=== PATIENT | female | born 1990 | race Caucasian/White ===

== ENCOUNTER 2020-04-03 07:40 | Outpatient (CLI) | payer OTHER, SELFPAY ==
[2020-04-03 08:10] LABS: Hemoglobin A1C 5.2 % (<5.7)
[2020-04-03 08:55] LABS: Alanine Aminotransferase 26 U/L (14-59); Alkaline Phosphatase 62 U/L (46-116); Aspartate Amino Transferase 25 U/L (15-37); Bilirubin,Total 0.5 mg/dL (0.00-1.00); Blood Urea Nitrogen 18 mg/dL (7-18); Calcium 9.3 mg/dL (8.5-10.1); Carbon Dioxide 26 mmol/L (21-32); Chloride 104 mmol/L (98-108); Cholesterol 205 mg/dL (0-200); Estimated Glomerular Filt Rate > 60; Glucose 84 mg/dL (70-99); HDL Direct 61 mg/dL (40-60); LDL Cholesterol Calculated 115 mg/dL (<130); Osmolality Calculated 288 mOsm/kg (285-295); Sodium 139 mmol/L (136-145); Total Protein 7.4 g/dL (6.4-8.2); Triglycerides 145 mg/dL (0-150)
[2020-04-03 09:06] LABS: Thyroid Stimulating Hormone Reflex 3.67 u/IU/mL (0.36-3.74)
[2020-04-06 08:41] LABS: Vitamin D 25 Hydroxy 61 ng/mL (30-100)
== END 2020-04-03 07:41 | disposition home or self-care (01) ==
DX: E28.2 Polycystic ovarian syndrome (principal)
CPT/HCPCS: 36415; 80053; 80061; 82306; 83036; 84443

== ENCOUNTER 2020-07-30 09:20 | Emergency (ER) | payer OTHER, SELFPAY ==
[2020-07-30 09:34] VITALS: BP 142/87; PULSE 73; RESP 20; TEMP 36.8; O2SAT 100
--- NOTE | 2020-07-30 09:51 | ED.GENADULT ---
HPI - General Adult General Chief complaint: Dizziness Stated complaint: fatigued and achy Time Seen by Provider: 07/30/20 09:51 Source: patient and RN notes reviewed Mode of arrival: ambulatory Limitations: no limitations History of Present Illness HPI narrative: 29 year old female who presents to [facility] care with complaints of experiencing episode of dizziness with headache, heaviness in arms and legs, fatigue and nausea that started at 9pm last night. Patient states that she felt like she was going to pass out but she didn't. Patient has been dieting and did Pilates at 1730 yesterday before symptoms occurred. Today she is only experiencing heaviness in her arms and legs and states that she just generally doesn't feel well. Patient has history of of PCOS and last menses was June 15 and she states that she has been spotting since the 26 of July. Patient denies any dizziness with position changes today, no headache, gait is steady face is symmetrical, and no nystagmus noted. Patient admits to being under alot of stress in the last few months finishing her Bachelors degree and had increase in dosage of trazodone for sleep at . States history of seasonal allergies. Related Data Home Medications Medication Instructions Recorded Confirmed cholecalciferol (vitamin D3) 125 5,000 unit PO DAILY 11/08/19 07/30/20 mcg (5,000 unit) capsule metformin 1,000 mg tablet 2,000 mg PO .Bedtime tablet 11/08/19 07/30/20 trazodone 50 mg tablet 25 mg PO .Bedtime tablet 11/08/19 07/30/20 PNV cmb#95-ferrous fumarate-FA 1 tablet PO DAILY 07/30/20 07/30/20 [] cetirizine 10 mg PO DAILY 07/30/20 07/30/20 docusate sodium [Stool Softener] 100 mg PO DAILY 07/30/20 07/30/20 valacyclovir 500 mg PO DAILY 07/30/20 07/30/20 Allergies Allergy/AdvReac Type Severity Reaction Status Date / Time morphine Allergy Intermediate Rash Verified 07/30/20 10:12 diclofenac Allergy Unknown Abdominal Verified 07/30/20 10:12 Pain Review of Systems Review of Systems: Narrative: CONSTITUTIONAL: Denies fever, chills, or sweats. EYES: Denies visual changes, redness, or discharge. ENT: some clear rhinorrhea,no congestion, sore throat, or otalgia. CARDIOVASCULAR: Denies chest pain, palpitations, or edema. RESPIRATORY: Denies cough or dyspnea. GASTROINTESTINAL: Denies abdominal pain, nausea, vomiting, or diarrhea. GENITOURINARY: Denies dysuria or hematuria. SKIN: Denies rash or itching. MUSCULOSKELETAL: Denies back pain, joint pain, or myalgia. NEUROLOGIC: Denies headache, numbness, episode of dizziness and weakness PSYCHIATRIC: positive anxiety denies depression. All systems reviewed & are unremarkable except as noted in HPI and below PMFSH Past Medical History Medical History (Updated 07/31/20 @ 15:28 by Shruthi Watson NP) Genital herpes GERD (gastroesophageal reflux disease) Insomnia PCOS (polycystic ovarian syndrome) Seizure, febrile Vitamin D deficiency Family History Family History (Updated 07/31/20 @ 15:30 by Shruthi Watson NP) Other Diabetes mellitus Heart disease Social History Social History (Updated 07/31/20 @ 15:29 by Shruthi Watson NP) Smoking status: Never smoker Substance use: never Living arrangements: with friend(s) Gender identity (if verbalized by the patient): Female Comments At time of signature, agree with nursing past medical, surgical, social and family history. There is no relevant family history pertinent to the presenting complaint Exam Narrative: Exam Narrative: GENERAL: Well-appearing, well-nourished, and in no acute distress. HEAD: Normocephalic, atraumatic. EYES: PERRLA and EOMI.no nystagmus ENT: Nares boggy with clear rhinorrhea no epistaxis. Mucous membranes moist.TM's normal with good light reflex, throat pink with no exudates or any tonsil enlargement NECK: Supple.no lymphadenopathy CHEST: Clear to auscultation. No respiratory distress.SAO2 100% on room air HEART: Regular rate an
[2020-07-30 10:47] VITALS: BP 138/80
== END 2020-07-30 10:47 | disposition home or self-care (01) ==
PROVIDERS: Emergency Provider Registered Nurse
DX: R42 Dizziness and giddiness (principal); K21.9 Gastro-esophageal reflux disease without esophagitis; E28.2 Polycystic ovarian syndrome; E55.9 Vitamin D deficiency, unspecified
CPT/HCPCS: 81003; 81025; 99213; G0463

== ENCOUNTER 2020-07-31 14:44 | Outpatient (CLI) | payer OTHER, SELFPAY ==
[2020-07-31 14:59] LABS: Basophils Absolute Auto 0.02 K/mm3 (0.00-0.10); Basophils Percent Auto 0.3 % (0.0-1.0); Eosinophils Absolute Auto 0.17 K/mm3 (0.02-0.50); Eosinophils Percent Auto 2.2 % (1.0-6.0); Hematocrit 39.9 % (35.0-49.0); Hemoglobin 13.3 g/dL (12.0-15.0); Immature Granulocyte Absolute 0.02 K/mm3 (0.00-0.00); Immature Granulocyte Percent A 0.3 % (0.0-0.0); Lymphocytes Absolute Auto 2.51 K/mm3 (1.10-4.50); Lymphocytes Percent Auto 32.8 % (18.0-42.0); Mean Corpuscular HGB Conc 33.3 g/dL (32.0-36.0); Mean Platelet Volume 8.9 fl (9.2-11.8); Monocytes Percent Auto 6.5 % (2.0-11.0); Neutrophils Absolute Auto 4.4 K/mm3 (1.7-7.2); Neutrophils Percent Auto 57.9 % (50.0-70.0); Platelet Count Result 270 K/mm3 (150-420); Red Blood Count 4.29 M/mm3 (4.20-5.40); Red Cell Distribution Width 12.5 % (11.6-14.4); White Blood Count 7.7 K/mm3 (4.8-10.8)
[2020-07-31 15:41] LABS: Anion Gap 7 mmol/L (8-16); Blood Urea Nitrogen 16 mg/dL (7-18); Calcium 9.6 mg/dL (8.5-10.1); Carbon Dioxide 28 mmol/L (21-32); Chloride 102 mmol/L (98-108); Estimated Glomerular Filt Rate > 60; Glucose 81 mg/dL (70-99); Osmolality Calculated 284 mOsm/kg (285-295); Potassium 4.9 mmol/L (3.5-5.1); Sodium 137 mmol/L (136-145)
== END 2020-07-31 14:45 | disposition home or self-care (01) ==
LOC: CHSLAB 14:49
DX: R42 Dizziness and giddiness (principal)
CPT/HCPCS: 36415; 80048; 85025

== ENCOUNTER 2020-08-07 12:42 | Outpatient (CLI) | payer OTHER, SELFPAY ==
[2020-08-07 13:04] LABS: Appearance Urine Clear (Clear); Bilirubin Urine Negative (Negative); Color Urine Yellow (Yellow); Glucose Urine UA Negative (Negative); Ketones Urine Negative (Negative); Leukocyte Esterase Ur Negative (Negative); Nitrate Urine Negative (Negative); Protein Urine Negative (Negative); Specific Grav Ur <= 1.005 (1.010-1.020); Urobilinogen Urine 0.2 mg/dL (0.2-1.0)
[2020-08-07 13:18] LABS: Add Urine Microscopic? YES; Bacteria Urine None seen /hpf; Blood Urine Trace-Intact (Negative); RBC Urine 0-2 /hpf (0-2); Squamous Epithelial Cell Urine Few /hpf (Few); WBC Urine 0-3 /hpf (0-3)
[2020-08-07 13:31] LABS: Anion Gap 5 mmol/L (8-16); Blood Urea Nitrogen 14 mg/dL (7-18); Calcium 9.2 mg/dL (8.5-10.1); Carbon Dioxide 30 mmol/L (21-32); Chloride 103 mmol/L (98-108); Estimated Glomerular Filt Rate > 60; Glucose 76 mg/dL (70-99); Osmolality Calculated 285 mOsm/kg (285-295); Potassium 4.4 mmol/L (3.5-5.1); Sodium 138 mmol/L (136-145)
== END 2020-08-07 12:43 | disposition home or self-care (01) ==
DX: N28.9 Disorder of kidney and ureter, unspecified (principal)
CPT/HCPCS: 36415; 80048; 81001

== ENCOUNTER 2020-08-19 22:00 | Emergency (ER) | payer OTHER, SELFPAY ==
[2020-08-19 22:46] LABS: Glucose Point of Care 106 (65-105)
--- NOTE | 2020-08-19 22:56 | ECG_ITS ---
Measurements Intervals [place] Rate: 88 P: 26 HI: 159 QRS: 15 QRSD: 114 T: 18 QT: 388 QTc: 470 Interpretive Statements SINUS RHYTHM INCOMPLETE RIGHT BUNDLE BRANCH BLOCK NONSPECIFIC T-WAVE ABNORMALITY- ANT/INF LEADS BORDERLINE ECG Electronically Signed On 08-20-2020 6:45:46 CDT by Bryant Jaimes D.O.
[2020-08-19 23:01] VITALS: BP 148/85; PULSE 93; RESP 20; TEMP 37.1; O2SAT 97
[2020-08-19 23:16] LABS: Hematocrit 37.5 % (35.0-49.0); Hemoglobin 12.6 g/dL (12.0-15.0); Mean Corpuscular HGB Conc 33.6 g/dL (32.0-36.0); Mean Corpuscular Hemoglobin 30.6 pg (27.0-31.0); Mean Platelet Volume 8.8 fl (9.2-11.8); Platelet Count Result 264 K/mm3 (150-420); Red Blood Count 4.12 M/mm3 (4.20-5.40); Red Cell Distribution Width 12.4 % (11.6-14.4); White Blood Count 6.8 K/mm3 (4.8-10.8)
[2020-08-19 23:19] VITALS: BP 131/78; PULSE 92; O2SAT 96
[2020-08-19 23:20] VITALS: BP 137/79; PULSE 99; O2SAT 97
[2020-08-19 23:32] LABS: Appearance Urine Clear (Clear); Bilirubin Urine Negative (Negative); Color Urine Yellow (Yellow); Glucose Urine UA Negative (Negative); Ketones Urine Negative (Negative); Leukocyte Esterase Ur Negative (Negative); Nitrate Urine Negative (Negative); Protein Urine Negative (Negative); Specific Grav Ur <= 1.005 (1.010-1.020); Urobilinogen Urine 0.2 mg/dL (0.2-1.0)
[2020-08-19] MEDS: SODIUM CHLORIDE 0.9% IV 1,000 ML 999 ML IV CONT (23:33)
[2020-08-19 23:34] LABS: Pregnancy On Board Control Positive; Urine Pregnancy Test Negative
[2020-08-19 23:37] LABS: Add Urine Microscopic? YES; Blood Urine Trace-Intact (Negative); RBC Urine 0-2 /hpf (0-2); Squamous Epithelial Cell Urine None seen /hpf (Few); WBC Urine 0-3 /hpf (0-3)
[2020-08-19] MEDS: ONDANSETRON INJ 4 MG/2 ML VIAL IV PUSH (23:37)
[2020-08-19 23:38] LABS: Bacteria Urine None seen /hpf
[2020-08-19 23:41] LABS: Alanine Aminotransferase 26 U/L (14-59); Albumin Level 4.1 g/dL (3.4-5.0); Alkaline Phosphatase 69 U/L (46-116); Anion Gap 8 mmol/L (8-16); Aspartate Amino Transferase 11 U/L (15-37); Bilirubin,Total 0.3 mg/dL (0.00-1.00); Blood Urea Nitrogen 15 mg/dL (7-18); Calcium 9.1 mg/dL (8.5-10.1); Carbon Dioxide 27 mmol/L (21-32); Chloride 105 mmol/L (98-108); Estimated CRCL calculation 96 ml/min; Estimated Glomerular Filt Rate > 60; Glucose 115 mg/dL (70-99); Osmolality Calculated 291 mOsm/kg (285-295); Potassium 4.6 mmol/L (3.5-5.1); Sodium 140 mmol/L (136-145); Thyroid Stimulating Hormone 5.99 uIU/mL (0.36-3.74); Total Protein 7.6 g/dL (6.4-8.2)
--- NOTE | 2020-08-20 00:16 | ED.DIZZY ---
HPI - Dizziness General Chief Complaint: Dizziness Stated Complaint: feels like she might pass out/nausea Source: patient Mode of arrival: ambulatory Limitations: no limitations History of Present Illness HPI Narrative: this is a 29 year female that presents with lightheadedness with nausea and fatigue that has been going on for the last 2 to 3 months with gradual onset of being more fatigued currently feeling lightheaded with some nausea with no vomiting. The patient does not have any chest pain no short this of breath no abdominal pain, there is no dysuria no sinus tenderness or pressure no ear fullness there is no neck pain or stiffness no headaches no blurry vision. MD elicited complaint: lightheadedness Onset (ago): month(s) Timing: gradual onset Severity: similar to previous episodes Related Data Home Medications Medication Instructions Recorded Confirmed cholecalciferol (vitamin D3) 125 5,000 unit PO DAILY 11/08/19 08/19/20 mcg (5,000 unit) capsule metformin 1,000 mg tablet 2,000 mg PO .Bedtime tablet 11/08/19 08/19/20 trazodone 50 mg tablet 25 mg PO .Bedtime tablet 11/08/19 08/19/20 PNV cmb#95-ferrous fumarate-FA 1 tablet PO DAILY 07/30/20 08/19/20 [] cetirizine 10 mg PO DAILY 07/30/20 08/19/20 docusate sodium [Stool Softener] 100 mg PO DAILY 07/30/20 08/19/20 valacyclovir 500 mg PO DAILY 07/30/20 08/19/20 Allergies Allergy/AdvReac Type Severity Reaction Status Date / Time morphine Allergy Intermediate Rash Verified 07/30/20 10:12 diclofenac Allergy Unknown Abdominal Verified 07/30/20 10:12 Pain Review of Systems Review of Systems: All systems reviewed & are unremarkable except as noted in HPI and below PMFSH Past Medical History Medical History Genital herpes GERD (gastroesophageal reflux disease) Insomnia PCOS (polycystic ovarian syndrome) Seizure, febrile Vitamin D deficiency Family History Family History Other Diabetes mellitus Heart disease Social History Social History Smoking status: Never smoker Substance use: never Gender identity (if verbalized by the patient): Female Exam Const: General: no acute distress Course Course Emergency Course: Patient received Zofran and IV fluids lightheadedness and nausea have improved although the patient still feels a little bit fatigued. Vital Signs Vital signs: Vital Signs Temperature 37.1 C 08/19/20 23:01 Pulse Rate 93 08/19/20 23:01 Respiratory Rate 20 08/19/20 23:01 Blood Pressure 148/85 H 08/19/20 23:01 Pulse Oximetry 97 08/19/20 23:01 Temperature 37.1 C 08/19/20 23:01 Pulse Rate 99 08/19/20 23:20 Respiratory Rate 20 08/19/20 23:01 Blood Pressure 137/79 08/19/20 23:20 Pulse Oximetry 97 08/19/20 23:20 MDM - Dizziness Lab Data Result diagrams: 08/19/20 23:12 08/19/20 23:12 Labs: Lab Results 08/19/20 08/19/20 08/19/20 Range/Units 22:44 23:12 23:12 WBC 6.8 (4.8-10.8) K/mm3 RBC 4.12 L (4.20-5.40) M/mm3 Hgb 12.6 (12.0-15.0) g/dL Hct 37.5 (35.0-49.0) % MCV 91.0 (78.0-102.0) fL MCH 30.6 (27.0-31.0) pg MCHC 33.6 (32.0-36.0) g/dL RDW 12.4 (11.6-14.4) % Plt Count 264 (150-420) K/mm3 MPV 8.8 L (9.2-11.8) fl Sodium 140 (136-145) mmol/L Potassium 4.6 (3.5-5.1) mmol/L Chloride 105 (98-108) mmol/L Carbon Dioxide 27 (21-32) mmol/L Anion Gap 8 (8-16) mmol/L BUN 15 (7-18) mg/dL Creatinine 0.94 (0.55-1.02) mg/dL Estim Creat Clear Calc 96 ml/min Estimated GFR > 60 (59 - ) Glucose 115 H (70-99) mg/dL POC Capillary Glucose 106 (65-105) mg/dl Calculated Osmolality 291 (285-295) mOsm/kg Calcium 9.1 (8.5-10.1) mg/dL Total Bilirubin 0.3 (0.00-1.00) mg/dL AST 11 L (15-3
[2020-08-20 00:19] VITALS: BP 132/65; PULSE 75; RESP 20; TEMP 36.6; O2SAT 99
== END 2020-08-20 00:23 | disposition home or self-care (01) ==
PROVIDERS: Emergency Provider Emergency Medicine
DX: R42 Dizziness and giddiness (principal); E03.9 Hypothyroidism, unspecified
CPT/HCPCS: 36415; 80053; 81001; 81025; 84443; 85027; 93005; 96361; 96374; 99281; 99283; 99284; J2405; J7030

== ENCOUNTER 2020-08-22 22:01 | Emergency (ER) | payer OTHER, SELFPAY ==
--- NOTE | ~2020-08-22 | CT_ITS ---
EXAMINATION: CT brain wo con INDICATION: Weakness, headache COMPARISON: None TECHNIQUE: Standard unenhanced head CT. The dose-length product (DLP) was 605.33 mGy-cm. The mA was a djusted according to patient size. Iterative reconstruction technique was employed. FINDINGS: There is no intracranial hemorrhage, acute infarction, or abnormal mass lesion. The ventric les are normal. There is no abnormal mass effect or midline shift. The vincent-white matter differentiat ion is normal. The basal cisterns are patent. The orbits are normal. The paranasal sinuses, mastoids and calvarium are normal. IMPRESSION: 1. No acute intracranial abnormality. Reviewed, dictated and finalized at location A.
--- NOTE | ~2020-08-22 | CT_ITS ---
EXAMINATION: CT cervical spine wo con DATE: 08/22/2020 23:22 INDICATION: Neck pain TECHNIQUE: Computed tomography (CT) of the cervical spine was performed without intravenous contrast. The dose-length product (DLP) was 441.56 mGy-cm. Automated exposure control and iterative reconstruc tion technique were employed. COMPARISON: None FINDINGS: There is no fracture, dislocation, or subluxation. The vertebral body heights and alignment are normal. There is mild loss of intervertebral disc space height in the lower cervical spine. The odontoid is intact. Small degenerative osteophytes project from the anterior endplates of multiple ve rtebral bodies. There is mild facet and uncovertebral joint osteoarthritis. IMPRESSION: 1. Mild cervical spondylosis without acute findings. Reviewed, dictated and finalized at location A.
--- NOTE | ~2020-08-22 | XR_ITS ---
EXAMINATION: XR chest 2V DATE: 08/22/2020 23:26 INDICATION: Weakness TECHNIQUE: PA and lateral views of the chest are obtained. COMPARISON: 11/08/2019 FINDINGS: The lungs are free of acute opacities. There is no pleural effusion or pneumothorax. The ca rdiomediastinal silhouette is normal. There is mild thoracic spondylosis. IMPRESSION: 1. No acute cardiopulmonary abnormality. Reviewed, dictated and finalized at location A.
--- NOTE | 2020-08-22 22:07 | ED.GENADULT ---
HPI - General Adult General Chief complaint: Headache Stated complaint: episodes where I am going to pass out Time Seen by Provider: 08/22/20 22:07 Source: patient and family Mode of arrival: ambulatory Limitations: no limitations History of Present Illness HPI narrative: Patient is a 29-year-old female who presents for evaluation of 3 weeks of nausea, lightheadedness, intermittent dizziness. Patient states that she has been feeling unwell for the past several weeks, has seen a primary care physician and has had 2 previous emergency department visits without a diagnosis for her symptoms. She denies fever, congestion, vision changes, chest pain, shortness of breath, abdominal pain or urinary symptoms. Patient with recent thyroid function studies which initially showed a increased TSH but then normal T3 and T4 thus patient's primary care physician did not start her on any medication. No episodes of syncope. She has had nausea without vomiting. No diarrhea or constipation. No focal weakness or numbness. Patient reports mild, aching neck pain that is worse with movement. Patient states at times she feels tremulous. She denies history of anxiety or depression. Patient states she has had an intentional 50 pound weight loss due to healthy eating and exercise. She denies any dietary deficiencies. Related Data Home Medications Medication Instructions Recorded Confirmed cholecalciferol (vitamin D3) 125 5,000 unit PO DAILY 11/08/19 08/19/20 mcg (5,000 unit) capsule metformin 1,000 mg tablet 2,000 mg PO .Bedtime tablet 11/08/19 08/19/20 trazodone 50 mg tablet 25 mg PO .Bedtime tablet 11/08/19 08/19/20 PNV cmb#95-ferrous fumarate-FA 1 tablet PO DAILY 07/30/20 08/19/20 [] cetirizine 10 mg PO DAILY 07/30/20 08/19/20 docusate sodium [Stool Softener] 100 mg PO DAILY 07/30/20 08/19/20 valacyclovir 500 mg PO DAILY 07/30/20 08/19/20 Allergies Allergy/AdvReac Type Severity Reaction Status Date / Time morphine Allergy Intermediate Rash Verified 07/30/20 10:12 diclofenac Allergy Unknown Abdominal Verified 07/30/20 10:12 Pain Review of Systems Review of Systems: Narrative: CONSTITUTIONAL: Denies fever, chills, or sweats. EYES: Denies visual changes, redness, or discharge. ENT: Denies rhinorrhea, congestion, sore throat, or otalgia. CARDIOVASCULAR: Denies chest pain, palpitations, or edema. RESPIRATORY: Denies cough or dyspnea. GASTROINTESTINAL: Denies abdominal pain, reports nausea without vomiting GENITOURINARY: Denies dysuria or hematuria. SKIN: Denies rash or itching. MUSCULOSKELETAL: Denies back pain, joint pain, reports neck pain NEUROLOGIC: Denies current headache, numbness,reports feeling diffusely weak PSYCHIATRIC: Denies anxiety or depression. [facility] Past Medical History Medical History Genital herpes GERD (gastroesophageal reflux disease) Insomnia PCOS (polycystic ovarian syndrome) Seizure, febrile Vitamin D deficiency Social History Social History Smoking status: Never smoker Substance use: never Gender identity (if verbalized by the patient): Female Exam Narrative: Exam Narrative: GENERAL: Awake, alert, conversant HEAD: Normocephalic, atraumatic. EYES: PERRLA and EOMI. ENT: Nares clear, no rhinorrhea or epistaxis. Mucous membranes moist. NECK: Supple. No rigidity. No midline tenderness. Positive cervical paraspinal tenderness. CHEST: No respiratory distress, breathing even and non labored HEART: Regular rate, sinus rhythm ABDOMEN:Non distended, non tender EXTREMITIES: Normal range of motion. No edema. SKIN: Warm, dry, no rash. NEURO:No focal deficits. Alert and oriented x3. Finger to nose intact bilaterally. EOMs intact without nystagmus. No facial droop/asymmetry noted bilaterally. Grimace intact. Intact sensation in face. Hearing intact bilaterally. Shoulder shrug intact. Strength 5
[2020-08-22 22:15] VITALS: BP 133/84; PULSE 91; RESP 19; TEMP 36.4; O2SAT 100
--- NOTE | 2020-08-22 22:20 | ECG_ITS ---
Measurements Intervals [place] Rate: 84 P: 1 VA: 151 QRS: -18 QRSD: 122 T: 11 QT: 386 QTc: 457 Interpretive Statements SINUS RHYTHM INCOMPLETE RIGHT BUNDLE BRANCH BLOCK VOLTAGE CRITERIA FOR LVH MINIMAL Q WAVES- HIGH LATERAL LEADS BORDERLINE T WAVE ABNORMALITY- ANT/INF LEADS BORDERLINE ECG Electronically Signed On 08-23-2020 6:56:25 CDT by Bryant Jaimes D.O.
[2020-08-22 22:42] LABS: Basophils Percent Auto 0.2 % (0.2-1.2); Eosinophils Absolute Auto 0.1 K/mm3 (0-0.3); Eosinophils Percent Auto 1.3 % (0-4.4); Hematocrit 38.7 % (37.0-47.0); Hemoglobin 13.3 g/dL (12.0-15.0); Immature Granulocyte Absolute 0.03 K/mm3 (0.00-0.031); Immature Granulocyte Percent A 0.3 % (0-0.5); Lymphocytes Absolute Auto 2.41 K/mm3 (0.9-3.2); Lymphocytes Percent Auto 24.6 % (18.3-44.2); Mean Corpuscular HGB Conc 34.4 g/dl (32-36); Mean Corpuscular Hemoglobin 30.9 pg (26-34); Monocytes Absolute Auto 0.7 K/mm3 (0.1-0.6); Monocytes Percent Auto 7.1 % (2.6-8.5); Neutrophils Absolute Auto 6.5 K/mm3 (1.3-6.7); Neutrophils Percent Auto 66.5 % (45.5-73.1); Platelet Count Result 248 k/mm3 (150-375); Red Cell Distribution Width 12.2 % (11.5-14.5); White Blood Count 9.8 K/mm3 (4.5-10.0)
[2020-08-22] MEDS: ONDANSETRON INJ 4 MG/2 ML VIAL IV PUSH (22:47)
[2020-08-22] MEDS: MAGNESIUM SULF 2 GM/WATER 50ML 2 GM/50 ML BAG IVPB (22:47)
[2020-08-22] MEDS: ACETAMINOPHEN 500 MG TABLET 1000 MG PO (22:48)
[2020-08-22] MEDS: SODIUM CHLORIDE 0.9% IV 1,000 ML 999 ML IV CONT (22:48)
[2020-08-22 22:49] LABS: Add Urine Microscopic? NO; Appearance Urine Clear (Clear); Bilirubin Urine Negative (Negative); Blood Urine Negative (Negative); Color Urine Straw (Yellow); Glucose Urine UA Negative (Negative); Ketones Urine Negative (Negative); Leukocyte Esterase Ur Negative LEU/UL (Negative); Nitrate Urine Negative (Negative); Protein Urine Negative (Negative); Specific Grav Ur 1.005 (1.001-1.035); Urobilinogen Urine Negative mg/dL (<2.0)
[2020-08-22 22:53] LABS: Anion Gap 6 mmol/L (8-16); Blood Urea Nitrogen 16 mg/dL (7-17); Calcium 9.7 mg/dL (8.4-10.2); Carbon Dioxide 26 mmol/L (22-30); Chloride 104 mmol/L (98-107); Estimated Glomerular Filt Rate > 60; Glucose 107 mg/dL (65-105); Potassium 4.2 mmol/L (3.4-5.0); Sodium 136 mmol/L (137-145)
[2020-08-22 23:18] VITALS: TEMP 36.4
[2020-08-22 23:30] VITALS: BP 127/67; PULSE 85; RESP 18; O2SAT 97
[2020-08-23 00:31] VITALS: BP 135/63; PULSE 83; RESP 14; TEMP 36.7; O2SAT 99
== END 2020-08-23 00:33 | disposition home or self-care (01) ==
PROVIDERS: Emergency Provider Emergency Medicine
DX: R42 Dizziness and giddiness (principal); M54.2 Cervicalgia; K21.9 Gastro-esophageal reflux disease without esophagitis; E28.2 Polycystic ovarian syndrome; E55.9 Vitamin D deficiency, unspecified; M47.812 Spondylosis without myelopathy or radiculopathy, cervical region; I45.10 Unspecified right bundle-branch block; R94.31 Abnormal electrocardiogram [ECG] [EKG]
CPT/HCPCS: 36415; 70450; 71046; 72125; 80048; 81003; 81025; 85025; 93005; 96365; 96375; 99284; A9270; J2405; J3475; J7030

== ENCOUNTER 2020-09-23 06:56 | Outpatient (CLI) | payer OTHER, SELFPAY ==
--- NOTE | 2020-09-23 | ECHO_ITS ---
Patient Info Name: Arabella Brown Age: 30 years : 1990 Gender: Female Ht: 68 in Wt: 220 lbs BSA: 2.22 m2 HR: 73 bpm BP: 139 / 95 mmHg Technical Quality: Good Exam Date: 09/23/2020 8:47 AM Exam Location: [facility] Patient Status: Outpatient Admit Date: 09/23/2020 Staff Ordering Physician: Steve Hunt MD Flight Service Agent: Bruce Butts, ANUM, RT Attending Provider: Steve Hunt MD Exam Type: CA echo doppler color flow Study Info Indications R00.2 - Palpitations Complete two-dimensional, color flow and Doppler transthoracic echocardiogram is performed. Strain analysis performed. Summary 1. Complete two-dimensional, color flow and Doppler transthoracic echocardiogram is performed. 2. Left ventricular chamber dimension is normal. 3. Left ventricular systolic function is normal, estimated at 60-65%. 4. The left ventricular diastolic function is normal. 5. E/e' 7 is not elevated. 6. Global longitudinal strain is normal at -18.4%. 7. There is trace pulmonic regurgitation. Left Ventricle E/e' 7 is not elevated. Global longitudinal strain is normal at -18.4%. Left ventricular chamber dimension is normal. Left ventricular systolic function is normal, estimated at 60-65%. The left ventricular diastolic function is normal. Right Ventricle Right ventricular chamber dimension is normal. Right ventricular systolic function is normal. Left Atria Left atrial chamber dimension is normal. Right Atria Right atrial chamber dimension is normal. Aortic Valve The aortic valve is trileaflet. There is no aortic valve stenosis. There is no aortic valve regurgitation. Pulmonic Valve There is trace pulmonic regurgitation. Mitral Valve There is no mitral valve stenosis. There is no mitral valve regurgitation. Tricuspid Valve There is no tricuspid valve regurgitation. Pericardium/Pleural There is no pericardial effusion. Inferior Vena Cava Normal inferior vena cava with >50% collapse upon inspiration consistent with normal right atrial pressure, 5 mmHg. Aorta The aortic root size at the sinus of Valsalva is normal. Left Ventricular Outflow Tract Name Value Normal LVOT 2D LVOT Diameter 2.0 cm LVOT Doppler LVOT Peak Gradient 3 mmHg LVOT Mean Gradient 1 mmHg LVOT VTI 17 cm LVOT VTI/AV VTI Ratio 0.5 LVOT Stroke Volume 55 ml LVOT CO 3.8 l/min LVOT CI 1.7 l/min/m2 Mitral Valve Name Value Normal MV Doppler MV Decel Otero 405 cm/s2 MV PHT 62 ms MV Area (PHT) 3.6 cm2 4.0-5.0 MV Diastolic Function ---------
--- NOTE | ~2020-09-23 | US_ITS ---
EXAMINATION: US carotid duplex BI DATE: 09/23/2020 09:47 INDICATION: Peripheral vascular disease. Vertigo. TECHNIQUE: Grayscale, color Doppler, and pulsed Doppler images of the cervical carotid arteries were obtained. The degree of vessel stenosis is placed in one of the following categories: normal, <50%, 5 0-69%, >=70% but less than near-occlusion, near-occlusion, or total occlusion. Note that percent sten osis relative to normal distal artery lumen diameter is indirectly measured from velocity measurement s as described by Raz, et al. Radiology 2003; 229:340-346. COMPARISON: None. FINDINGS: RIGHT: The right common carotid artery (CCA) peak systolic velocity (PSV) is 110 cm/s. The right internal ca rotid artery (ICA) PSV is 67 cm/s. The right ICA end-diastolic velocity (EDV) is 32 cm/s. The right I CA/CCA PSV ratio is 0.6. Grayscale and color Doppler images yield an estimate of <50% diameter reduct ion from negligible plaque in the ICA. The external carotid artery (ECA) PSV is 87 cm/s. There is ant egrade flow in the right vertebral artery. LEFT: The left CCA PSV is 95 cm/s. The left ICA PSV is 84 cm/s. The left ICA EDV is 40 cm/s. The left ICA/C CA PSV ratio is 0.9. Grayscale and color Doppler images yield an estimate of <50% diameter reduction from negligible plaque in the ICA. The ECA PSV is 74 cm/s. There is antegrade flow in the left verteb ral artery. IMPRESSION: 1. <50% stenosis from negligible plaque in the right internal carotid artery. 2. <50% stenosis from negligible plaque in the left internal carotid artery. Reviewed, dictated and finalized at location B.
--- NOTE | 2020-09-23 09:44 | WPDNEUROLOGY ---
Neurology EEG Report TEST EEG DIAGNOSIS seizures CONDITION OF RECORDING awake and drowsy EEG NUMBER [id number] CLINICAL HISTORY patient reported that for the last 2 months she is having episodes of feeling weird and then he starts shaking. She denies any loss of consciousness. Episodes can last [id number] up to an hour. EEG DESCRIPTION Basic resting occipital frequency consists of large amount of well-organized low to medium voltage 8 to 10 hertz per 2nd alpha admixed with minimal amount of low-voltage 15 to 18 hertz per 2nd beta. During drowsiness low-voltage beta activity seen diffusely admixed with waxing and waning posterior alpha rhythm. Intermittent EKG artifact is seen throughout the tracing. Non paroxysmal. Nonfocal. Nonlateralizing. IMPRESSION Normal EEG
== END 2020-09-23 06:57 | disposition home or self-care (01) ==
PROVIDERS: Visit Provider Psychiatry & Neurology Neurology
DX: R56.9 Unspecified convulsions (principal); R00.2 Palpitations; I73.9 Peripheral vascular disease, unspecified; I65.23 Occlusion and stenosis of bilateral carotid arteries
CPT/HCPCS: 93306; 93880; 95816

== ENCOUNTER 2021-01-20 08:10 | Outpatient (CLI) | payer OTHER, SELFPAY ==
[2021-01-20 08:49] LABS: Beta HCG Quantitative < 1.00 mIU/mL (0-6)
== END 2021-01-20 08:11 | disposition home or self-care (01) ==
LOC: CHSLAB 08:14
PROVIDERS: PCP Obstetrics & Gynecology; Visit Provider Obstetrics & Gynecology
DX: Z31.83 Encounter for assisted reproductive fertility procedure cycle (principal)
CPT/HCPCS: 36415; 84702

== ENCOUNTER 2021-03-19 07:49 | Outpatient (CLI) | payer OTHER, SELFPAY ==
[2021-03-22 08:02] LABS: Progesterone 8.1 ng/mL (***)
== END 2021-03-19 07:50 | disposition home or self-care (01) ==
PROVIDERS: Visit Provider Obstetrics & Gynecology
DX: Z31.41 Encounter for fertility testing (principal)
CPT/HCPCS: 36415; 84144

== ENCOUNTER 2021-04-21 16:28 | Outpatient (CLI) | payer OTHER, SELFPAY | END 2021-04-21 16:29 | disposition home or self-care (01) | PROVIDERS: Visit Provider Obstetrics & Gynecology | DX: N97.9 Female infertility, unspecified (principal) | CPT/HCPCS: 36415; 84144 ==

== ENCOUNTER 2021-04-30 11:47 | Outpatient (CLI) | payer OTHER, SELFPAY ==
[2021-04-30 13:07] LABS: Beta HCG Quantitative < 1.00 mIU/mL (0-6)
== END 2021-04-30 11:48 | disposition home or self-care (01) ==
LOC: CHSLAB 11:50
PROVIDERS: PCP Obstetrics & Gynecology; Visit Provider Obstetrics & Gynecology
DX: Z31.41 Encounter for fertility testing (principal)
CPT/HCPCS: 36415; 84702

== ENCOUNTER 2021-05-02 11:57 | Outpatient (CLI) | payer OTHER, SELFPAY ==
--- NOTE | ~2021-05-02 | XR_ITS ---
EXAMINATION: XR hysterosalpingogram DATE: 05/02/2021 12:27 INDICATION: Fertility testing TECHNIQUE: Multiple fluoroscopic images were obtained during contrast infusion into the endometrial c anal of the uterus by the primary physician. Fluoroscopy exposure time was 0.8 minutes. A total of 4 images were recorded. FINDINGS: The left fallopian tube is normal in caliber and patent with free intraperitoneal spillage. There are filling defects at the right cornua, a portion of which demonstrates a concave margin which would ar kyleigh against a bubble. The right fallopian tube is occluded with only minimal opacification of the pro ximal most right fallopian tube. The remainder of the right fallopian tube remains unopacified with n o free intraperitoneal spillage on the right. IMPRESSION: 1. Patent left fallopian tube. 2. Occluded right fallopian tube with nonspecific irregular filling defect at the right cornua. Reviewed, dictated and finalized at location A. IMPRESSION: 1. Patent left fallopian tube. 2. Occluded right fallopian tube with nonspecific irregular filling defect at t he right cornua.
== END 2021-05-02 11:58 | disposition home or self-care (01) ==
LOC: ANHIMG 11:59
PROVIDERS: Visit Provider Obstetrics & Gynecology
DX: N97.1 Female infertility of tubal origin (principal)
CPT/HCPCS: 58340; 74740; Q9966

== ENCOUNTER 2021-05-20 16:25 | Outpatient (CLI) | payer OTHER, SELFPAY ==
[2021-05-24 08:07] LABS: Progesterone 15.3 ng/mL (***)
== END 2021-05-20 16:26 | disposition home or self-care (01) ==
PROVIDERS: PCP Obstetrics & Gynecology; Visit Provider Obstetrics & Gynecology
DX: Z31.41 Encounter for fertility testing (principal)
CPT/HCPCS: 36415; 84144

== ENCOUNTER 2021-06-20 16:27 | Outpatient (CLI) | payer OTHER, SELFPAY ==
[2021-06-25 05:56] LABS: Progesterone 20.8 ng/mL (***)
== END 2021-06-20 16:28 | disposition home or self-care (01) ==
LOC: CHSIMG 16:29
PROVIDERS: PCP Obstetrics & Gynecology; Visit Provider Obstetrics & Gynecology
DX: N97.9 Female infertility, unspecified (principal)
CPT/HCPCS: 36415; 84144

== ENCOUNTER 2021-07-21 12:02 | Outpatient (CLI) | payer OTHER, SELFPAY ==
[2021-07-24 07:18] LABS: Progesterone 20.7 ng/mL (***)
== END 2021-07-21 12:03 | disposition home or self-care (01) ==
LOC: CHSLAB 12:04
PROVIDERS: PCP Obstetrics & Gynecology; Visit Provider Obstetrics & Gynecology
DX: Z31.41 Encounter for fertility testing (principal)
CPT/HCPCS: 36415; 84144

== ENCOUNTER 2021-09-03 08:00 | Outpatient (CLI) | payer OTHER, SELFPAY ==
[2021-09-03 08:32] LABS: Basophils Absolute Auto 0.03 K/mm3 (0.00-0.10); Basophils Percent Auto 0.5 % (0.0-1.0); Eosinophils Percent Auto 1.8 % (1.0-6.0); Hematocrit 37.7 % (35.0-49.0); Hemoglobin 12.6 g/dL (12.0-15.0); Immature Granulocyte Absolute 0.02 K/mm3 (0.00-0.00); Immature Granulocyte Percent A 0.4 % (0.0-0.0); Lymphocytes Percent Auto 30.7 % (18.0-42.0); Mean Corpuscular HGB Conc 33.4 g/dL (32.0-36.0); Mean Corpuscular Hemoglobin 29.6 pg (27.0-31.0); Mean Corpuscular Volume 88.7 fL (78.0-102.0); Mean Platelet Volume 8.8 fl (9.2-11.8); Monocytes Absolute Auto 0.43 K/mm3 (0.10-0.90); Monocytes Percent Auto 7.8 % (2.0-11.0); Neutrophils Absolute Auto 3.3 K/mm3 (1.7-7.2); Neutrophils Percent Auto 58.8 % (50.0-70.0); Platelet Count Result 264 K/mm3 (150-420); Red Blood Count 4.25 M/mm3 (4.20-5.40); Red Cell Distribution Width 13.1 % (11.6-14.4); White Blood Count 5.5 K/mm3 (4.8-10.8)
[2021-09-03 09:48] LABS: Alanine Aminotransferase 42 U/L (14-59); Albumin Level 3.9 g/dL (3.4-5.0); Alkaline Phosphatase 62 U/L (46-116); Anion Gap 9 mmol/L (8-16); Aspartate Amino Transferase 15 U/L (15-37); Bilirubin,Total 0.4 mg/dL (0.00-1.00); Blood Urea Nitrogen 15 mg/dL (7-18); Carbon Dioxide 27 mmol/L (21-32); Chloride 103 mmol/L (98-108); Estimated Glomerular Filt Rate > 60; Free T4 Free Thyroxine 0.94 ng/dL (0.76-1.46); Glucose 95 mg/dL (70-99); Osmolality Calculated 288 mOsm/kg (285-295); Potassium 4.7 mmol/L (3.5-5.1); Sodium 139 mmol/L (136-145); Thyroid Stimulating Hormone 2.22 uIU/mL (0.36-3.74); Total Protein 7.2 g/dL (6.4-8.2)
[2021-09-03 09:51] LABS: HIV 1 P24 AG Negative (Negative); HIV 1/2 AB Negative (Negative)
[2021-09-03 10:10] LABS: Free T3 2.52 pg/mL (2.18-3.98)
[2021-09-05 21:55] LABS: Hepatitis B Surface Antigen Nonreactive (Nonreactive); Hepatitis C Signal to Cutoff 0.01 ratio (<1.00); Hepatitis C Virus Antibody Nonreactive (Nonreactive)
[2021-09-06 06:06] LABS: DHEA-Sulfate 398 mcg/dL (18-391); Thyroglobulin 3.9 ng/mL (2.8-40.9); Thyroglobulin Antibodies 570 IU/mL (<=1); Thyroid Peroxidase Antibodies 9 IU/mL (<9)
[2021-09-06 06:29] LABS: LH 2.3 mIU/mL (***); Progesterone 0.7 ng/mL (***); Prolactin 8.7 ng/mL (***)
[2021-09-06 11:21] LABS: Testosterone Total 25 ng/dL (2-45)
[2021-09-06 11:44] LABS: Vitamin D 25 Hydroxy 55 ng/mL (30-100)
[2021-09-06 15:51] LABS: Rubeola Measles IgG >300.00 AU/mL
[2021-09-06 19:07] LABS: Rubella IgG Antibody 1.38 Index
[2021-09-08 00:12] LABS: Vitamin D 1,25 (OH)2 Total 63 pg/mL (18-72); Vitamin D2 1,25 (OH)2 <8 pg/mL; Vitamin D3 1,25 (OH)2 63 pg/mL
[2021-09-10 09:57] LABS: Reference Lab Test Name SYPHILIS AB CASCADE
[2021-09-10 21:36] LABS: Estradiol, Ultrasensitive 71 pg/mL
== END 2021-09-03 08:01 | disposition home or self-care (01) ==
LOC: CHSLAB 08:05
PROVIDERS: PCP Obstetrics & Gynecology
DX: E28.8 Other ovarian dysfunction (principal); E28.2 Polycystic ovarian syndrome; Z11.3 Encounter for screening for infections with a predominantly sexual mode of transmission; Z11.4 Encounter for screening for human immunodeficiency virus [HIV]; Z13.228 Encounter for screening for other metabolic disorders; Z13.0 Encounter for screening for diseases of the blood and blood-forming organs and certain disorders involving the immune mechanism; Z13.1 Encounter for screening for diabetes mellitus; Z01.83 Encounter for blood typing; Z01.84 Encounter for antibody response examination; Z11.59 Encounter for screening for other viral diseases; Z13.29 Encounter for screening for other suspected endocrine disorder; Z13.21 Encounter for screening for nutritional disorder
CPT/HCPCS: 36415; 80053; 82306; 82627; 82652; 82670; 83001; 83002; 83036; 83498; 83520; 84144; 84146; 84403; 84432; 84439; 84443; 84481; 85025; 86146; 86376; 86703; 86762; 86765; 86780; 86787; 86800; 86850; 86900; 86901; 87491; 87591

== ENCOUNTER 2021-09-08 08:39 | Outpatient (CLI) | payer OTHER, SELFPAY ==
[2021-09-08 09:37] LABS: SARS-CoV-2 RNA PCR Negative (Negative)
== END 2021-09-08 08:40 | disposition home or self-care (01) ==
LOC: CHSLAB 08:41
PROVIDERS: PCP Obstetrics & Gynecology; Visit Provider Nurse Practitioner Family
DX: Z20.822 Contact with and (suspected) exposure to COVID-19 (principal); Z01.818 Encounter for other preprocedural examination
CPT/HCPCS: C9803; U0003; U0005

== ENCOUNTER 2021-12-31 12:08 | Outpatient (CLI) | payer OTHER, SELFPAY ==
[2022-01-04 10:22] LABS: Progesterone 0.7 ng/mL (***)
[2022-01-04 20:18] LABS: Estradiol, Ultrasensitive 499 pg/mL
== END 2021-12-31 12:09 | disposition home or self-care (01) ==
LOC: CHSLAB 12:14
PROVIDERS: PCP Registered Nurse
DX: Z31.83 Encounter for assisted reproductive fertility procedure cycle (principal)
CPT/HCPCS: 36415; 82670; 84144

== ENCOUNTER 2022-01-22 09:33 | Outpatient (CLI) | payer OTHER, SELFPAY ==
[2022-01-28 05:35] LABS: Progesterone 39.3 ng/mL (***)
== END 2022-01-22 09:34 | disposition home or self-care (01) ==
PROVIDERS: PCP Registered Nurse
DX: Z32.01 Encounter for pregnancy test, result positive (principal)
CPT/HCPCS: 36415; 84144; 84702

== ENCOUNTER 2022-03-02 11:57 | Outpatient (CLI) | payer OTHER, SELFPAY ==
--- NOTE | ~2022-03-02 | US_ITS ---
EXAMINATION: US OB <= 14 weeks fetus DATE: 03/02/2022 12:17 INDICATION: Hemorrhage in early , unspecified. TECHNIQUE: Real-time transabdominal pelvic ultrasound was performed. COMPARISON: None. FINDINGS: The uterus measures 11.1 x 7.0 x 6.6 cm. There is an intrauterine gestational sac. The crown r ump length measures 3.1 cm, which correlates with an estimated gestational age of 10 weeks and 0 day( s) (+/-) 6 day(s). heart motion is identified measuring 171 beats per minute (bpm) by M-mode Do ppler. The right ovary measures 3.2 x 1.7 x 1.8 cm. The left ovary is not visualized. There is no fred e fluid in the pelvis. IMPRESSION: 1. Single living intrauterine gestation with estimated date of delivery of 09/28/2022. Reviewed, dictated and finalized at location A. IMPRESSION: 1. Single living intrauterine gestation with estimated date of delivery of .
== END 2022-03-02 11:58 | disposition home or self-care (01) ==
LOC: CHSIMG 11:58
PROVIDERS: PCP Registered Nurse; Visit Provider Obstetrics & Gynecology
DX: O20.9 Hemorrhage in early pregnancy, unspecified (principal)
CPT/HCPCS: 76801

== ENCOUNTER 2022-03-27 11:49 | Outpatient (CLI) | payer OTHER, SELFPAY ==
[2022-03-27 12:04] LABS: Basophils Absolute Auto 0.02 K/mm3 (0.00-0.10); Basophils Percent Auto 0.2 % (0.0-1.0); Eosinophils Percent Auto 1.2 % (1.0-6.0); Hematocrit 34.3 % (35.0-49.0); Hemoglobin 11.6 g/dL (12.0-15.0); Immature Granulocyte Absolute 0.03 K/mm3 (0.00-0.00); Immature Granulocyte Percent A 0.4 % (0.0-0.0); Lymphocytes Absolute Auto 1.67 K/mm3 (1.10-4.50); Lymphocytes Percent Auto 20.3 % (18.0-42.0); Mean Corpuscular HGB Conc 33.8 g/dL (32.0-36.0); Mean Corpuscular Hemoglobin 30.5 pg (27.0-31.0); Mean Corpuscular Volume 90.3 fL (78.0-102.0); Mean Platelet Volume 8.9 fl (9.2-11.8); Monocytes Absolute Auto 0.44 K/mm3 (0.10-0.90); Monocytes Percent Auto 5.4 % (2.0-11.0); Neutrophils Percent Auto 72.5 % (50.0-70.0); Platelet Count Result 272 K/mm3 (150-420); Red Cell Distribution Width 13.2 % (11.6-14.4); White Blood Count 8.2 K/mm3 (4.8-10.8)
[2022-03-31 14:49] LABS: Vitamin D 25 Hydroxy 43 ng/mL (30-100)
[2022-04-02 08:33] LABS: Hematocrit 36.1 % (35.0-45.0); Hemoglobin 11.5 g/dL (11.7-15.5); MCH 29.2 pg (27.0-33.0); MCV 91.6 fL (80.0-100.0); RDW 13.2 % (11.0-15.0); Red Blood Cell Count 3.94 Mill/uL (3.80-5.10)
[2022-04-06 17:19] LABS: CF Result NEGATIVE (NEGATIVE)
== END 2022-03-27 11:50 | disposition home or self-care (01) ==
LOC: CHSLAB 11:51
PROVIDERS: PCP Registered Nurse; Visit Provider Student in an Organized Health Care Education/Training Program
DX: Z34.90 Encounter for supervision of normal pregnancy, unspecified, unspecified trimester (principal)
CPT/HCPCS: 36415; 81220; 81243; 82306; 83021; 85025; 87086

== ENCOUNTER 2022-04-29 14:33 | Outpatient (CLI) | payer OTHER, SELFPAY ==
--- NOTE | ~2022-04-29 | XR_ITS ---
EXAMINATION: XR foot RT min 3V DATE: 04/29/2022 14:54 INDICATION: Pain at the dorsum of the right foot TECHNIQUE: Dorsoplantar, oblique and lateral views of the right foot were obtained. COMPARISON: None. FINDINGS: Alignment is normal. No fracture. Joint spaces are normal. Small Achilles and plantar calcaneal spurs . Soft tissues are unremarkable. IMPRESSION: 1. No acute osseous abnormality. Reviewed, dictated and finalized at location B.
== END 2022-04-29 14:34 | disposition home or self-care (01) ==
LOC: CHSIMG 14:37
PROVIDERS: PCP Registered Nurse; Visit Provider Registered Nurse
DX: M79.671 Pain in right foot (principal)
CPT/HCPCS: 73630

== ENCOUNTER 2022-06-22 07:42 | Outpatient (CLI) | payer OTHER, SELFPAY ==
[2022-06-22 09:03] LABS: Basophils Absolute Auto 0.02 K/mm3 (0.00-0.10); Basophils Percent Auto 0.2 % (0.0-1.0); Eosinophils Absolute Auto 0.09 K/mm3 (0.02-0.50); Eosinophils Percent Auto 0.9 % (1.0-6.0); Hemoglobin 9.9 g/dL (12.0-15.0); Immature Granulocyte Absolute 0.05 K/mm3 (0.00-0.00); Immature Granulocyte Percent A 0.5 % (0.0-0.0); Lymphocytes Absolute Auto 1.46 K/mm3 (1.10-4.50); Lymphocytes Percent Auto 14.2 % (18.0-42.0); Mean Corpuscular Volume 90.9 fL (78.0-102.0); Mean Platelet Volume 8.9 fl (9.2-11.8); Monocytes Percent Auto 4.9 % (2.0-11.0); Neutrophils Absolute Auto 8.1 K/mm3 (1.7-7.2); Neutrophils Percent Auto 79.3 % (50.0-70.0); Platelet Count Result 211 K/mm3 (150-420); Red Cell Distribution Width 13.5 % (11.6-14.4); White Blood Count 10.3 K/mm3 (4.8-10.8)
[2022-06-22 09:41] LABS: Glucose 1 Hour PP 50gm Dose 186 mg/dL (70-130)
== END 2022-06-22 07:43 | disposition home or self-care (01) ==
LOC: CHSLAB 07:44
PROVIDERS: PCP Registered Nurse; Visit Provider Student in an Organized Health Care Education/Training Program
DX: Z34.90 Encounter for supervision of normal pregnancy, unspecified, unspecified trimester (principal)
CPT/HCPCS: 36415; 82947; 85025

== ENCOUNTER 2022-06-24 07:59 | Outpatient (CLI) | payer OTHER, SELFPAY ==
[2022-06-24 10:35] LABS: Glucose 2 Hour Gest 195 mg/dL (<155)
[2022-06-24 11:03] LABS: Glucose Fasting Gestational 99 mg/dL (>/=95)
[2022-06-24 11:04] LABS: Glucose 1 Hour Gest 226 mg/dL (70-130)
[2022-06-24 11:25] LABS: Glucose 3 Hour Gest 80 mg/dL (>/=140)
== END 2022-06-24 08:00 | disposition home or self-care (01) ==
LOC: CHSLAB 08:00
PROVIDERS: PCP Registered Nurse; Visit Provider Student in an Organized Health Care Education/Training Program
DX: O99.810 Abnormal glucose complicating pregnancy (principal)
CPT/HCPCS: 36415; 82951; 82952

== ENCOUNTER 2022-06-26 07:45 | Outpatient (RCR) | payer OTHER, SELFPAY | END 2022-09-14 08:24 | disposition home or self-care (01) | LOC: ANHDMC 07:45 | PROVIDERS: PCP Registered Nurse; Visit Provider Student in an Organized Health Care Education/Training Program | DX: O24.419 Gestational diabetes mellitus in pregnancy, unspecified control (principal); Z71.89 Other specified counseling; Z3A.00 Weeks of gestation of pregnancy not specified | CPT/HCPCS: G0108 ==

== ENCOUNTER 2022-08-04 11:30 | Outpatient (CLI) | payer OTHER, SELFPAY ==
[2022-08-04 11:43] LABS: Basophils Absolute Auto 0.02 K/mm3 (0.00-0.10); Basophils Percent Auto 0.2 % (0.0-1.0); Eosinophils Absolute Auto 0.09 K/mm3 (0.02-0.50); Hematocrit 30.3 % (35.0-49.0); Hemoglobin 10.1 g/dL (12.0-15.0); Immature Granulocyte Absolute 0.05 K/mm3 (0.00-0.00); Immature Granulocyte Percent A 0.6 % (0.0-0.0); Lymphocytes Absolute Auto 1.51 K/mm3 (1.10-4.50); Lymphocytes Percent Auto 16.8 % (18.0-42.0); Mean Corpuscular HGB Conc 33.3 g/dL (32.0-36.0); Mean Corpuscular Hemoglobin 30.1 pg (27.0-31.0); Mean Corpuscular Volume 90.2 fL (78.0-102.0); Mean Platelet Volume 8.8 fl (9.2-11.8); Monocytes Absolute Auto 0.69 K/mm3 (0.10-0.90); Monocytes Percent Auto 7.7 % (2.0-11.0); Neutrophils Absolute Auto 6.6 K/mm3 (1.7-7.2); Neutrophils Percent Auto 73.7 % (50.0-70.0); Platelet Count Result 220 K/mm3 (150-420); Red Blood Count 3.36 M/mm3 (4.20-5.40); Red Cell Distribution Width 14.2 % (11.6-14.4)
[2022-08-04 13:16] LABS: HIV 1 P24 AG Negative (Negative); HIV 1/2 AB Negative (Negative)
[2022-08-06 15:39] LABS: RPR Screen Non-Reactive (Non-Reactive)
== END 2022-08-04 11:31 | disposition home or self-care (01) ==
LOC: CHSLAB 11:33
PROVIDERS: PCP Registered Nurse; Visit Provider Student in an Organized Health Care Education/Training Program
DX: Z34.90 Encounter for supervision of normal pregnancy, unspecified, unspecified trimester (principal)
CPT/HCPCS: 36415; 85025; 86592; 86703

== ENCOUNTER 2022-08-26 11:35 | Outpatient (CLI) | payer OTHER, SELFPAY ==
[2022-08-26] VITALS (12 sets, daily range): BP systolic 116–146; BP diastolic 66–78; PULSE 75–88; RESP 18
[2022-08-26 12:20] LABS: Appearance Urine Clear (Clear); Basophils Percent Auto 0.3 % (0.2-1.2); Bilirubin Urine Negative (Negative); Blood Urine Trace-intact (Negative); Color Urine Yellow (Yellow); Eosinophils Absolute Auto 0.1 K/mm3 (0-0.3); Eosinophils Percent Auto 0.9 % (0-4.4); Glucose Urine UA Negative (Negative); Hematocrit 32.7 % (37.0-47.0); Hemoglobin 10.9 g/dL (12.0-15.0); Immature Granulocyte Absolute 0.04 K/mm3 (0.00-0.031); Immature Granulocyte Percent A 0.5 % (0-0.5); Ketones Urine Negative (Negative); Leukocyte Esterase Ur Negative LEU/UL (NEGATIVE); Lymphocytes Absolute Auto 1.19 K/mm3 (0.9-3.2); Lymphocytes Percent Auto 15.8 % (18.3-44.2); Mean Corpuscular HGB Conc 33.3 g/dl (32-36); Mean Corpuscular Hemoglobin 30.1 pg (26-34); Mean Corpuscular Volume 90.3 fl (80-100); Monocytes Absolute Auto 0.5 K/mm3 (0.1-0.6); Neutrophils Absolute Auto 5.7 K/mm3 (1.3-6.7); Neutrophils Percent Auto 75.5 % (45.5-73.1); Nitrate Urine Negative (Negative); Platelet Count Result 235 k/mm3 (150-375); Protein Urine Negative (Negative); Red Blood Count 3.62 M/mm3 (4.2-5.4); Red Cell Distribution Width 14.3 % (11.5-14.5); Urobilinogen Urine 0.2 mg/dL (<2.0); White Blood Count 7.5 K/mm3 (4.5-10.0)
[2022-08-26 12:26] LABS: Alanine Aminotransferase 20 U/L (6-35); Albumin Level 3.9 g/dL (3.5-5.1); Alkaline Phosphatase 81 U/L (38-126); Anion Gap 15 mmol/L (8-16); Aspartate Amino Transferase 20 U/L (14-36); Bilirubin,Total 0.3 mg/dL (0.2-1.3); Blood Urea Nitrogen 7 mg/dL (7-17); Calcium 9.4 mg/dL (8.4-10.2); Carbon Dioxide 18 mmol/L (22-30); Chloride 104 mmol/L (98-107); Estimated Glomerular Filt Rate > 60; Glucose 130 mg/dL (65-110); Potassium 3.9 mmol/L (3.4-5.0); Sodium 137 mmol/L (137-145); Uric Acid 7.6 mg/dL (2.5-7.5)
[2022-08-26 12:27] LABS: Add Urine Microscopic? YES; Bacteria Urine Trace /hpf; Mucus Urine Rare /lpf; RBC Urine 0-2 /hpf (0-2); Squamous Epithelial Cell Urine Moderate /hpf (Few)
[2022-08-26 12:37] LABS: Creatinine Urine 92.1 mg/dL; Total Protein Urine Random 14 mg/dL; Ur Ttl Prot Creatinine Ratio 0.15 mg/mg (0-0.20)
== END 2022-08-26 14:15 | disposition home or self-care (01) ==
LOC: ANHOBOP 11:41 → ANHOBPP 11:41
PROVIDERS: PCP Registered Nurse; Visit Provider Student in an Organized Health Care Education/Training Program
DX: O13.3 Gestational [pregnancy-induced] hypertension without significant proteinuria, third trimester (principal); Z3A.35 35 weeks gestation of pregnancy
CPT/HCPCS: 36415; 59025; 80053; 81001; 82570; 84156; 84550; 85025; 87086; 87088; 99199

== ENCOUNTER 2022-08-28 08:22 | Outpatient (CLI) | payer OTHER, SELFPAY ==
[2022-08-28 09:40] LABS: Creatinine Urine 42.08 mg/dL (40-278)
[2022-08-28 09:41] LABS: Creatinine 24 Hour Urine 1.36 g/24 hr (0.60-1.80); Total Volume 24 Hour Urine 3250 ml
[2022-08-28 09:47] LABS: Total Protein Urine 24 Hr 227 mg/24hr (0-149); Total Protein Urine Random < 7.0 mg/dL (0.0-11.9); Total Volume 24 Hour Urine 3250 ml
== END 2022-08-28 08:23 | disposition home or self-care (01) ==
LOC: CHSLAB 08:25
PROVIDERS: PCP Registered Nurse; Visit Provider Student in an Organized Health Care Education/Training Program
DX: I10 Essential (primary) hypertension (principal)
CPT/HCPCS: 81050; 82570; 84156

== ENCOUNTER 2022-09-07 08:58 | Outpatient (CLI) | payer OTHER, SELFPAY ==
[2022-09-07 09:16] VITALS: BP 118/73; PULSE 83
[2022-09-07 09:31] VITALS: BP 115/61; PULSE 79
[2022-09-07 09:46] VITALS: BP 112/63; PULSE 77
[2022-09-07 10:01] VITALS: BP 124/68; PULSE 83
--- NOTE | 2022-09-07 10:01 | PC.NURSE ---
Dr Pino notified of BP's and reactive tracing. OK to dc home, no need for repeat labs.
[2022-09-07 10:05] VITALS: BP 118/73; PULSE 81
== END 2022-09-07 10:05 | disposition home or self-care (01) ==
LOC: ANHOBOP 09:02 → ANHOBPP 09:03
PROVIDERS: PCP Registered Nurse; Visit Provider Student in an Organized Health Care Education/Training Program
DX: O13.9 Gestational [pregnancy-induced] hypertension without significant proteinuria, unspecified trimester (principal); Z3A.00 Weeks of gestation of pregnancy not specified
CPT/HCPCS: 59025; 99199

== ENCOUNTER 2022-09-11 13:19 | Outpatient (RCR) | payer OTHER, SELFPAY ==
[2022-08-24 12:50] VITALS: BP 132/79; PULSE 87
[2022-09-05 09:28] VITALS: BP 121/62; PULSE 82
--- NOTE | ~2022-09-11 | US_ITS ---
EXAMINATION: US OB BPP wo non-stress DATE: 09/11/2022 14:45 INDICATION: Gestational diabetes during third trimester TECHNIQUE: Real-time pelvic ultrasound was performed. The interpreting radiologist was not present fo r the study. COMPARISON: 08/24/2022. FINDINGS: There is a single living fetus in vertex presentation. The placenta is anterior. heart rate is 161 beats per minute (bpm). Biophysical profile performed by the technologist: breathing (30 sec sustained breathing in 30 minutes): 2 out of 2 movement (3 gross body movements in 30 minutes): 2 out of 2 tone (one episode of cicttxp-umzajiqdg-cpzrfhm limb movement): 2 out of 2 Amniotic fluid pocket (2 cm): 2 out of 2 Total score: 8 out of 8 IMPRESSION: 1. Single living fetus in vertex presentation. 2. Biophysical profile 8 out of 8. Reviewed, dictated and finalized at location F.
--- NOTE | ~2022-09-11 | US_ITS ---
EXAMINATION: US OB BPP wo non-stress DATE: 08/24/2022 13:26 INDICATION: Gestational diabetes, third trimester TECHNIQUE: Real-time pelvic ultrasound was performed. The interpreting radiologist was not present fo r the study. COMPARISON: 03/02/2022 FINDINGS: There is a single living fetus in vertex presentation. The placenta is anterior. heart rate is 138 beats per minute (bpm). Biophysical profile performed by the technologist: breathing (30 sec sustained breathing in 30 minutes): 2 out of 2 movement (3 gross body movements in 30 minutes): 2 out of 2 tone (one episode of mczkpcl-sxsccuyrh-wmatsib limb movement): 2 out of 2 Amniotic fluid pocket (2 cm): 2 out of 2 Total score: 8 out of 8 IMPRESSION: 1. Single living fetus in vertex presentation. 2. Biophysical profile 8 out of 8. Reviewed, dictated and finalized at location A.
[2022-09-11 14:32] LABS: Hematocrit 29.4 % (37.0-47.0); Mean Corpuscular Hemoglobin 30.3 pg (26-34); Mean Corpuscular Volume 89.1 fl (80-100); Mean Platelet Volume 9.1 fl (7.4-10.4); Platelet Count Result 205 k/mm3 (150-375); Red Cell Distribution Width 14.3 % (11.5-14.5); White Blood Count 7.4 K/mm3 (4.5-10.0)
[2022-09-11 14:41] LABS: Creatinine Urine 39.3 mg/dL; Total Protein Urine Random 14 mg/dL; Ur Ttl Prot Creatinine Ratio 0.36 mg/mg (0-0.20)
[2022-09-11 14:45] VITALS: BP 140/72; PULSE 76
[2022-09-11 14:45] LABS: Alanine Aminotransferase 19 U/L (6-35); Albumin Level 3.5 g/dL (3.5-5.1); Alkaline Phosphatase 80 U/L (38-126); Anion Gap 11 mmol/L (8-16); Aspartate Amino Transferase 20 U/L (14-36); Bilirubin,Total 0.2 mg/dL (0.2-1.3); Blood Urea Nitrogen 8 mg/dL (7-17); Calcium 9.4 mg/dL (8.4-10.2); Carbon Dioxide 19 mmol/L (22-30); Chloride 107 mmol/L (98-107); Estimated Glomerular Filt Rate > 60; Glucose 122 mg/dL (65-110); Potassium 3.8 mmol/L (3.4-5.0); Sodium 137 mmol/L (137-145)
--- NOTE | 2022-09-11 14:47 | PC.NURSE ---
1410--Report to Dr. Pino re: reactive NST and BP's 141/71, 140/72, 132/63, 136/68. Orders received to draw PIH labs and continue with BPP.
--- NOTE | 2022-09-11 15:16 | PC.NURSE ---
1515--Report lab results, BPP, and v.s. to Dr. Pino. Orders to have pt. stay in room and she will come talk to pt. re: IOL.
--- NOTE | 2022-09-11 16:17 | PC.NURSE ---
1600--Dr. Pino at BS to see pt. and discuss POC for IOL with cervidil this evening. Pt. will go home and get her things and her and return for IOL.
== END 2022-10-30 07:38 | disposition home or self-care (01) ==
LOC: ANHOBOP 13:19
PROVIDERS: PCP Registered Nurse; Visit Provider Student in an Organized Health Care Education/Training Program
DX: O24.419 Gestational diabetes mellitus in pregnancy, unspecified control (principal); Z3A.39 39 weeks gestation of pregnancy; Z3A.41 41 weeks gestation of pregnancy
CPT/HCPCS: 36415; 59025; 76819; 80053; 82570; 84156; 84550; 85027; J0131; J2405; J2590; J2704

== ENCOUNTER 2022-09-11 18:44 | Inpatient (IN) | payer OTHER, SELFPAY ==
[2022-09-11] VITALS (10 sets, daily range): BP systolic 116–131; BP diastolic 54–73; PULSE 72–86; BMI 40.7
--- NOTE | 2022-09-11 19:28 | LDADM ---
This patient, Arabella Heard, was admitted to Labor/Delivery/Recovery 108 on 09/11/22 at 18:44. Plans for labor, pain management and were discussed with patient. Patient/family oriented to hospital policies and general routines including ID bracelet, bed and alarms, visiting hours, pain management, procedures, bathroom and other care routines, personal items, smoking policy, room service/diet and guest tray routines, security routines, and visiting hours. Patient/Family are encouraged to report perceived risks to care and to ask questions if they do not understand what they are told or what they should do. See [facility] for further documentation.
[2022-09-11] MEDS: DINOPROSTONE 10 MG VAG INSERT VAGINAL (19:40)
[2022-09-11 19:47] LABS: Glucose Point of Care 113 mg/dl (65-105)
[2022-09-11 19:49] LABS: Basophils Percent Auto 0.1 % (0.2-1.2); Eosinophils Absolute Auto 0.1 K/mm3 (0-0.3); Eosinophils Percent Auto 0.8 % (0-4.4); Hematocrit 31.9 % (37.0-47.0); Hemoglobin 10.7 g/dL (12.0-15.0); Immature Granulocyte Absolute 0.04 K/mm3 (0.00-0.031); Immature Granulocyte Percent A 0.5 % (0-0.5); Lymphocytes Absolute Auto 1.87 K/mm3 (0.9-3.2); Lymphocytes Percent Auto 22.2 % (18.3-44.2); Mean Corpuscular HGB Conc 33.5 g/dl (32-36); Mean Corpuscular Hemoglobin 30.1 pg (26-34); Mean Corpuscular Volume 89.6 fl (80-100); Mean Platelet Volume 9.2 fl (7.4-10.4); Monocytes Absolute Auto 0.6 K/mm3 (0.1-0.6); Monocytes Percent Auto 7.6 % (2.6-8.5); Neutrophils Absolute Auto 5.8 K/mm3 (1.3-6.7); Neutrophils Percent Auto 68.8 % (45.5-73.1); Platelet Count Result 230 k/mm3 (150-375); Red Blood Count 3.56 M/mm3 (4.2-5.4); Red Cell Distribution Width 14.6 % (11.5-14.5); White Blood Count 8.4 K/mm3 (4.5-10.0)
[2022-09-11 20:01] LABS: Alanine Aminotransferase 21 U/L (6-35); Albumin Level 3.7 g/dL (3.5-5.1); Alkaline Phosphatase 97 U/L (38-126); Anion Gap 8 mmol/L (8-16); Aspartate Amino Transferase 23 U/L (14-36); Bilirubin,Total 0.2 mg/dL (0.2-1.3); Blood Urea Nitrogen 9 mg/dL (7-17); Calcium 9.1 mg/dL (8.4-10.2); Carbon Dioxide 20 mmol/L (22-30); Chloride 106 mmol/L (98-107); Estimated CRCL calculation 118 ml/min; Estimated Glomerular Filt Rate > 60; Glucose 122 mg/dL (65-110); Potassium 3.6 mmol/L (3.4-5.0); Sodium 134 mmol/L (137-145)
[2022-09-11] MEDS: metFORMIN HCL 500 MG TABLET 2000 MG PO (21:50)
[2022-09-11] MEDS: CHOLECALCIFEROL 1,000 UNITS TABLET 5000 UNITS PO (21:52)
[2022-09-11] MEDS: SERTRALINE HCL 25 MG TABLET PO (21:53)
[2022-09-11] MEDS: busPIRone HCL 10 MG, busPIRone HCL 5 MG 15 MG PO (21:53)
[2022-09-11] MEDS: INSULIN HUMAN NPH (*BKC) 100 UNITS/ML 26 UNITS SUB-Q (21:54)
[2022-09-11] MEDS: valACYclovir HCL 500 MG TABLET PO (22:22)
--- NOTE | 2022-09-11 22:59 | WPDANESEPP ---
Anes - Eval Pre Procedure Procedure: Labor epidural Date/Time: 09/11/22 22:59 Surgeon: Alvarez Preop Diagnosis: Abd pain with contractions Pre Op Diagnosis: Induction of Labor Patient Data Age: 31 Gender: F Height: 1.7 m Weight: 118 kg Last Vital Signs Pulse 74 09/11/22 21:45 BP 116/62 09/11/22 21:45 Allergies Allergy/AdvReac Type Severity Reaction Status Date / Time morphine Allergy Intermediate Rash Verified 09/11/22 13:56 diclofenac Allergy Unknown Abdominal Verified 09/11/22 13:56 Pain Home Medications Medication Instructions Recorded Confirmed Type cholecalciferol (vitamin D3) 125 5,000 unit PO DAILY 11/08/19 08/26/22 History mcg (5,000 unit) capsule metformin 1,000 mg tablet 2,000 mg PO .Bedtime 11/08/19 08/26/22 History docusate sodium 100 mg tablet 100 mg PO DAILY 07/30/20 08/26/22 History (Stool Softener) vit no.95-ferrous 1 tablet PO DAILY 07/30/20 08/26/22 History fumarate 28 mg-folic acid 800 mcg tablet () valacyclovir 500 mg tablet 500 mg PO DAILY 07/30/20 08/26/22 History buspirone 15 mg tablet 15 mg PO BID 01/21/22 08/26/22 History sertraline 25 mg tablet 25 mg PO DAILY 01/21/22 08/26/22 History ferrous sulfate 325 mg (65 mg 325 mg PO BID #180 tabs 06/23/22 08/26/22 Rx iron) tablet blood-glucose meter (Accu-Chek #1 ea 06/25/22 Rx Guide Glucose Meter) alcohol swabs (Alcohol Prep Pads) 1 pad topical .COMPLEX #100 ea 07/18/22 08/26/22 Rx insulin syringe-needle U-100 1 mL #100 ea 07/18/22 07/18/22 Rx 30 gauge x 5/16 (Advocate Syringes) blood sugar diagnostic (Accu-Chek #100 strips 08/31/22 Rx Guide test strips) insulin NPH isoph U-100 human 100 26 unit subcut QPM 09/11/22 History unit/mL subcutaneous suspension (Humulin N NPH U-100 Insulin (isophane susp)) lancets 30 gauge and blood glucose #100 ea 09/11/22 Rx strips combo pack Laboratory Tests 09/11/22 09/11/22 09/11/22 19:40 19:42 19:42 WBC 8.4 K/mm3 K/mm3 (4.5-10.0) RBC 3.56 M/mm3 L M/mm3 (4.2-5.4) Hgb 10.7 g/dL L g/dL (12.0-15.0) Hct 31.9 % L % (37.0-47.0) MCV 89.6 fl fl (80-100) MCH 30.1 pg pg (26-34) MCHC 33.5 g/dl g/dl (32-36) RDW 14.6 % H % (11.5-14.5) Plt Count 230 k/mm3 k/mm3 (150-375) MPV 9.2 fl fl (7.4-10.4) Immature Gran % (Auto) 0.5 % % (0-0.5) Neut % (Auto) 68.8 % % (45.5-73.1) Lymph % (Auto) 22.2 % % (18.3-44.2) [place] % (Auto) 7.6 % % (2.6-8.5) Eos % (Auto) 0.8 % % (0-4.4) Baso % (Auto) 0.1 % L % (0.2-1.2) Lymph # (Auto) 1.87 K/mm3 K/mm3 (0.9-3.2) [place] # (Auto) 0.6 K/mm3 K/mm3 (0.1-0.6) Eos # (Auto) 0.1 K/mm3 K/mm3 (0-0.3) Baso # (Auto) 0.0 K/mm3 K/mm3 (0.0-0.1) Abs Immat Gran (auto) 0.04 K/mm3 H K/mm3 (0.00-0.031) Absolute Neuts (auto) 5.8 K/mm3 K/mm3 (1.3-6.7) Absolute Nucleated RBC 0.0 K/mm3 K/mm3 (0.0-0.012) Nucleated RBC % 0.0 % % (0.0-0.2) Sodium Potassium Chloride Carbon Dioxide Anion Gap BUN Creatinine Estim Creat Clear Calc Estimated GFR Glucose POC Capillary Glucose 113 mg/dl H mg/dl (65-105) Calcium Total Bilirubin AST ALT Alkaline Phosphatase Total Protein Albumin RPR Pending Blood Type Antibody Screen 09/11/22 09/11/22 19:42 19:42 WBC RBC Hgb Hct MCV MCH MCHC RDW Plt Count MPV Immature Gran % (Auto) Neut % (Auto) Lymph % (Auto) [place] % (Auto) Eo
[2022-09-12] VITALS (38 sets, daily range): BP systolic 104–141; BP diastolic 49–78; PULSE 57–83; TEMP 36.4–36.8
[2022-09-12 01:55] LABS: Glucose Point of Care 114 mg/dl (65-105)
[2022-09-12 06:13] LABS: Glucose Point of Care 74 mg/dl (65-105)
[2022-09-12 07:48] LABS: Glucose Point of Care 105 mg/dl (65-105)
[2022-09-12] MEDS: LACTATED RINGERS 1,000 ML 125 ML IV CONT ×2 (08:23→19:54)
[2022-09-12] MEDS: AMPICILLIN 2 GM/NS 100 ML 2 GM/100 ML BAG IVPB (08:24)
[2022-09-12] MEDS: OXYTOCIN 30 UNITS/NS 500 ML 30 UNITS/500 ML BAG 6 UNITS IV CONT (08:25)
[2022-09-12] MEDS: valACYclovir HCL 500 MG TABLET PO ×2 (08:58→22:19)
[2022-09-12] MEDS: busPIRone HCL 10 MG, busPIRone HCL 5 MG 15 MG PO ×2 (08:59→22:19)
[2022-09-12] MEDS: ACETAMINOPHEN 500 MG TABLET 1000 MG PO (09:22)
[2022-09-12] MEDS: FERROUS SULFATE 324 MG TABLET PO (09:23)
[2022-09-12 11:14] LABS: Glucose Point of Care 93 mg/dl (65-105)
[2022-09-12] MEDS: AMPICILLIN 1 GM/NS 50 ML 1 GM/50 ML BAG IVPB ×3 (12:33→20:28)
[2022-09-12 14:09] LABS: Glucose Point of Care 131 mg/dl (65-105)
[2022-09-12] MEDS: ONDANSETRON INJ 4 MG/2 ML VIAL IV PUSH (15:43)
[2022-09-12] MEDS: fentaNYL CITRATE INJ (*CRX) 100 MCG/2 ML VIAL 50 MCG IV PUSH ×2 (15:44→21:30)
[2022-09-12 18:30] LABS: Glucose Point of Care 74 mg/dl (65-105)
[2022-09-12 20:01] LABS: Glucose Point of Care 121 mg/dl (65-105)
--- NOTE | 2022-09-12 20:57 | PM.IMHP ---
H&P: HPI History of Present Illness Date/Time: 09/12/22 20:57 Chief Complaint: Gestational hypertension Narrative: Patient is a 31yo currently 37w3d gestation who presented to L&D on the evening of 09/11/22 at 37w2d gestation for induction of labor secondary to gestational hypertension. Current is the result of a fresh IVF cycle performed at [facility]. Transfer date 01/12/22 with [facility] 09/30/22. Patient had one elevated BP measurement in office a few weeks ago. She self reported an elevated home measurement earlier this week, however, did not have any elevated BP measurements when she presented for evaluation on L&D. Patient presented to L&D for routine testing yesterday where another elevated BP measurement was noted. Patient was diagnosed with gestational hypertension and decision made to proceed with induction of labor. Patient also has a history of gestational diabetes well controlled with insulin. Patient is asymptomatic and feeling well. Denies any vaginal bleeding or leakage of fluid. Reports occasional contractions and good movement. Also denies any headache, chest pain, shortness of breath, nausea, vomiting, visual disturbances, or right upper quadrant tenderness. Review of Systems Review of Systems: All systems reviewed & are unremarkable except as noted in HPI and below Constitutional: Constitutional: Reports as per HPI and Reports no additional constitutional complaints Eyes: Eyes: Reports as per HPI and Reports no additional eye complaints ENT: Reports system reviewed and no additional complaints, except as documented and Reports as per HPI Cardiovascular: Cardiovascular: Reports as per HPI and Reports no additional cardiovascular complaints Respiratory: Respiratory: Reports as per HPI and Reports no additional respiratory complaints Gastrointestinal: Gastrointestinal: Reports as per HPI and Reports no additional gastrointestinal complaints Genitourinary: Genitourinary: Reports no additional female genitourinary complaints and Reports as per HPI Musculoskeletal: Musculoskeletal: Reports no additional musculoskeletal complaints and Reports as per HPI Integumentary/Breasts: Skin/Breast: Reports system reviewed and no additional complaints, except as docu and Reports as per HPI Neurologic: Reports system reviewed and no additional complaints, except as documented and Reports as per HPI Psychiatric: Psychiatric: Reports no additional psychiatric complaints and Reports as per HPI Endocrine: Endocrine: Reports no additional endocrine complaints and Reports as per HPI Hematologic/Lymphatic: Hematologic/Lymphatic: Reports no additional hematologic/lymphatic complaints and Reports as per HPI Allergic/Immunologic: Allergic/Immunologic: Reports no additional allergic/immunologic complaints and Reports as per HPI [facility] Past Medical History Medical History Anxiety Genital herpes GERD (gastroesophageal reflux disease) Gestational diabetes History of miscarriage, currently Insomnia Morbid obesity PCOS (polycystic ovarian syndrome) and not yet delivered Seizure, febrile Vitamin D deficiency Surgical History Surgical History H/O laparoscopy scar tissue and polyp removal Family History Family History Grandparent Bone cancer Heart disease Thyroid disorder Anxiety Other Diabetes mellitus Social History Social History Smoking status: Never smoker Second hand tobacco smoke exposure: No Alcohol intake: former Substance use: never Gender identity (if verbalized by the patient): Female Spiritual care concerns: No Agree to blood products: Yes Meds Home Medications and Allergies Home Medications Medication Instructions Recorded Confirmed Typ
--- NOTE | 2022-09-12 21:15 | WPDHPUPDATE1 ---
History and Physical Update Update Date/Time: 09/12/22 21:15 History and Physical has been reviewed, including an updated exam of the patient. There are NO changes in the patient's condition. Risks, benefits, and alternatives have been discussed and questions answered. Patient agrees to proceed with procedure.
--- NOTE | 2022-09-12 21:16 | PM.OBPNLAB ---
Pain Control Date/time seen: 09/12/22 21:16 Patient doing well. s/p cervidil. Currently on pitocin. EFM category 1. [place] shows contractions q3-4 mins. SVE 2/-2. AROM performed, clear fluid noted. Will discontinue pitocin, rest for 1 hr., and then restart. Continuous EFM and toco. Continue fingerstick monitoring per protocol.
[2022-09-12] MEDS: SERTRALINE HCL 25 MG TABLET PO (22:22)
[2022-09-13] VITALS (328 sets, daily range): BP systolic 97–150; BP diastolic 49–107; PULSE 52–172; RESP 14–20; TEMP 36.1–36.9; O2SAT 95–100
[2022-09-13] MEDS: AMPICILLIN 1 GM/NS 50 ML 1 GM/50 ML BAG IVPB ×5 (00:15→16:27)
[2022-09-13 00:19] LABS: Glucose Point of Care 105 mg/dl (65-105)
[2022-09-13] MEDS: LACTATED RINGERS 1,000 ML 125 ML IV CONT (03:07)
[2022-09-13 03:15] LABS: Glucose Point of Care 92 mg/dl (65-105)
[2022-09-13] MEDS: OXYTOCIN 30 UNITS/NS 500 ML 30 UNITS/500 ML BAG 6 UNITS IV CONT (04:32)
[2022-09-13 07:10] LABS: Glucose Point of Care 73 mg/dl (65-105)
--- NOTE | 2022-09-13 07:53 | PC.NURSE ---
Spoke with Dr. Pino. Gave her an update on pt's SVE and MVU's and Pitocin currently at 40 mu/hr. Dr. Pino gave orders to go up on Pitocin by 2 mu/hr until patient is adequate of to 50 mu/hr or until 0930. If MVU's are not adequate by 0930, stop pitocin for 30 minutes then restart. Orders discussed with Charge nurse.
[2022-09-13] MEDS: busPIRone HCL 10 MG, busPIRone HCL 5 MG 15 MG PO (08:30)
[2022-09-13] MEDS: CHOLECALCIFEROL 1,000 UNITS TABLET 5000 UNITS PO (08:31)
[2022-09-13] MEDS: valACYclovir HCL 500 MG TABLET PO (08:33)
[2022-09-13] MEDS: FERROUS SULFATE 324 MG TABLET PO (09:04)
[2022-09-13 11:16] LABS: Glucose Point of Care 72 mg/dl (65-105)
--- NOTE | 2022-09-13 12:37 | PC.NURSE ---
Dr. Pino on unit. Orders to go up on Pitocin every 15 minutes by 6 mu/hr.
--- NOTE | 2022-09-13 13:00 | PM.OBPNLAB ---
Pain Control Date/time seen: 09/13/22 13:00 Patient doing well. Comfortable s/p epidural. SVE /-2. EFM category 1. [place] shows contractions q2-7 mins. s/p another pitocin break. Pitocin was restarted. Continue pitocin. Also continue FS and BP monitoring.
[2022-09-13] MEDS: diphenhydrAMINE HCl CAP 25 MG CAPSULE PO (13:19)
--- NOTE | 2022-09-13 15:05 | PC.NURSE ---
I called Dr. Pino. Report given, [facility] [place] her Dr. Pino. Orders to keep patients pitocin at 40 m/u. Orders to do SVE a little before 1800 and call with an update.
[2022-09-13 15:11] LABS: Glucose Point of Care 72 mg/dl (65-105)
--- NOTE | 2022-09-13 17:42 | PC.NURSE ---
Spoke with pts SVE and MVUs. Dr. Pino will be here to discuss c/s.
--- NOTE | 2022-09-13 18:30 | PM.OBPNLAB ---
Pain Control Date/time seen: 09/13/22 18:30 Patient doing well. SVE unchanged. EFM category 1. [place] shows contractions q2-4 mins, however, inadequate MVUs despite titrating pitocin to max. 40 miU for three 12 hour cycles. Patient has been ruptured for 22 hrs. Unable to achieve adequate contraction pattern despite greater than 24 hours of pitocin. Discussion had with patient regarding situation and low likelihood of successful vaginal delivery given no cervical change. Recommendation made to proceed with section. Risks and benefits discussed. Patient implied an understanding and agrees with plan. Pitocin discontinued. Anesthesia notified. All questions and concerns addressed.
--- NOTE | 2022-09-13 19:55 | W.PM.PROC2 ---
Procedure Note - Detailed Date of Procedure 09/13/22 Pre-op Diagnosis IUP at 37w4d gestation Failed induction of labor Gestational hypertension Gestational diabetes-insulin controlled Maternal obesity IVF Post-op Diagnosis Same Procedure Performed Primary low transverse section via Pfannenstiel Surgeon Sylvia Pino MD Exchange Architect Rina Forman Anesthesia Epidural Findings Live male infant in cephalic presentation, apgars 4 and 7, weighing 6 lbs. 9 oz.; clear amniotic fluid, normal appearing uterus, ovaries, and fallopian tubes bilaterally Description of Procedure The patient was taken to the operating room, where she was transferred to the operating room table. The patient was placed in dorsal supine position with a leftward tilt. She was prepped and draped in the usual sterile fashion. Epidural anesthesia was tested and found to be adequate. A Pfannenstiel skin incision was made with a scalpel and carried through to underlying layer of fascia with the Bovie. The fascia was incised in the midline and the incision was extended laterally with the use of forceps and Daley scissors. The inferior aspect of the fascial incision was grasped with Shiv clamps, elevated, and the underlying rectus muscle were dissected off with Daley scissors. Attention was then turned to the superior aspect of the fascial incision, which in a similar manner, was grasped with Shiv clamps, elevated, and the underlying rectus muscles were also dissected off with Daley scissors. The rectus muscles were in the midline and the peritoneal cavity was entered bluntly. This incision was extended superiorly and inferiorly with good visualization of the bladder and care was taken to avoid blood vessels. A bladder blade was inserted. The vesicouterine peritoneum was identified and incised sharply with Metzenbaum scissors. This incision was extended laterally with Metzenbaum scissors and a bladder flap was created digitally. The bladder blade was replaced. A low-transverse uterine incision was made with a scalpel. This incision was extended laterally with bandage scissors. Amniotomy was performed. Clear amniotic fluid was noted. The infant's head was grasped and gently guided to the level of the uterine incision. Due to maternal body habitus, delivery of head required a few tries with fundal pressure. Once fundal pressure was applied adequately, 's head was delivered easily and atraumatically without difficulty followed by the neck, shoulders, and rest of body with gentle fundal pressure. The infant's nose and mouth were suctioned bulb suction. The cord was clamped and cut and the infant was handed off to awaiting nursing staff. A segment of cord was collected for cord gases. Cord blood was also collected. The placenta was then delivered manually with gentle uterine massage. Uterus was exteriorized and cleared of all clots and debris. The uterine incision was reapproximated with 0 Vicryl in a running, locked fashion. A second imbricating layer using 0 Monocryl performed. A pinpoint area of bleeding beneath incision was noted. This area was made hemostatic with a figure of eight suture using 0 Vicryl. Excellent hemostasis was noted. On inspection, the uterus, ovaries, and fallopian tubes appeared to be normal bilaterally. The uterus was replaced into the abdominal cavity. The gutters were cleared of all clots and debris. The uterine incision was inspected again and noted to be hemostatic. Hemaderm was applied across the uterine incision. Interceed was also applied across the uterine incision and anterior surface of the uterus. The peritoneum was reapproximated with 2-0 Monocryl. The fascia was then closed with 0 Vicryl in a running fashion. The subcutaneous layer was irrigated with water. Pinpoint areas of bleeding were made hemostatic with Bovie. The subcutaneous layer was reapproximated with 2-0 plain and the skin was then closed with Insorb subcuticular osiel in a subcuti
--- NOTE | 2022-09-13 20:15 | PM.OBPRVD ---
OB - Delivery Note Procedure Delivery date: 09/13/22 Procedure: Procedures Operation Date: 09/13/22 18:30 <No data on this case meets the specified criteria> Events: Gestational Diabetes, Gestational Hypertension and Positive Group B Strep (GBS) Intrapartal Events: Failed Induction of Labor Induction method: Per Cervidil Protocol Delivery augmentation: Rupture of Membranes and Pitocin Delivery monitor: External FHT, External Uterine and Internal Uterine Route of delivery: Prior to decision for section, [facility] labor guidelines were considered and discussed with the patient and staff. Decision made to proceed with the section.: Yes Specimen: Yes (placenta and cord, cord blood, and cord gases) Quantitative Blood Loss (ml): 750 Anesthesia type: Epidural Disposition: PACU Complications: No immediate complications [place] Baby Date of : 09/13/22 Time of : 19:00 Weeks of gestation at delivery: 37 (37.4) gender: Male Weight (pounds): 6 Weight (ounces): 9 presentation: vertex Placenta delivery description: Manual Removal Cord Vessel Description: 3 Vessels score one minute: 4 score five minutes: 7 AMG Delivery Billing Delivery Delivery: Delivery Charge
[2022-09-13] MEDS: OXYTOCIN 30 UNITS/NS 500 ML 30 UNITS/500 ML BAG 125 UNITS IV CONT (21:30)
[2022-09-13] MEDS: HYDROcodone/acetaminophen (*CRX) 10-325 MG TABLET 1 TAB PO (22:06)
[2022-09-14] MEDS: HYDROcodone/acetaminophen (*CRX) 10-325 MG TABLET 1 TAB PO ×7 (00:59→22:36)
[2022-09-14 04:00] VITALS: BP 138/78; PULSE 88; RESP 16; TEMP 36.9; O2SAT 100
[2022-09-14] MEDS: SIMETHICONE 80 MG TAB.CHEW PO ×5 (04:04→17:11)
[2022-09-14] MEDS: IBUPROFEN 600 MG TABLET PO ×4 (04:05→22:34)
[2022-09-14 06:27] LABS: Rapid Plasma Reagin Non-Reactive (NonReactive)
[2022-09-14 06:27] LABS: Basophils Percent Auto 0.2 % (0.2-1.2); Eosinophils Percent Auto 0.5 % (0-4.4); Hematocrit 27.6 % (37.0-47.0); Immature Granulocyte Absolute 0.02 K/mm3 (0.00-0.031); Immature Granulocyte Percent A 0.2 % (0-0.5); Lymphocytes Absolute Auto 0.93 K/mm3 (0.9-3.2); Lymphocytes Percent Auto 11.1 % (18.3-44.2); Mean Corpuscular HGB Conc 32.6 g/dl (32-36); Mean Platelet Volume 9.7 fl (7.4-10.4); Monocytes Absolute Auto 0.8 K/mm3 (0.1-0.6); Monocytes Percent Auto 9.5 % (2.6-8.5); Neutrophils Absolute Auto 6.6 K/mm3 (1.3-6.7); Neutrophils Percent Auto 78.5 % (45.5-73.1); Platelet Count Result 171 k/mm3 (150-375); Red Cell Distribution Width 14.4 % (11.5-14.5); White Blood Count 8.4 K/mm3 (4.5-10.0)
[2022-09-14 07:30] VITALS: BP 144/78; PULSE 85; RESP 18; TEMP 36.2; O2SAT 100
[2022-09-14] MEDS: POLYSACCHARIDE IRON COMPLEX 150 MG CAPSULE PO ×2 (07:38→17:10)
[2022-09-14] MEDS: MULTIVIT/MIN/PREN/FOL AC/IRON TABLET 1 TAB PO (07:38)
[2022-09-14] MEDS: DOCUSATE SODIUM 100 MG CAPSULE PO ×2 (07:38→17:10)
[2022-09-14 08:00] VITALS: PULSE 85; RESP 18; O2SAT 100
--- NOTE | 2022-09-14 08:11 | PM.OBPNLAB ---
Pain Control Date/time seen: 09/14/22 08:11 Patient doing well this morning. Pain reasonably controlled with medication. Denies any headache, chest pain, shortness of breath, nausea, or vomiting. Tolerating minimal amount of p.o. diet. Ca catheter in place. Limited ambulation to chair. No flatus yet.
--- NOTE | 2022-09-14 08:15 | P.PNOB_ITS ---
OB - PN: Subj Subjective Date/time seen: 09/14/22 08:15 Patient doing well this morning. Pain reasonably controlled with medication. Denies any headache, chest pain, shortness of breath, nausea, or vomiting. Tolerating minimal amount of p.o. diet. Stahl catheter in place. Limited ambulation to chair. No flatus yet. Minimal lochia. OB - PN: Obj Data Labs CBC & Chem 7: 09/14/22 04:14 09/11/22 19:42 Labs: Laboratory Results - last 24 hr 09/11/22 09/13/22 09/13/22 19:42 11:12 15:09 WBC RBC Hgb Hct MCV MCH MCHC RDW Plt Count MPV Immature Gran % (Auto) Neut % (Auto) Lymph % (Auto) [place] % (Auto) Eos % (Auto) Baso % (Auto) Lymph # (Auto) [place] # (Auto) Eos # (Auto) Baso # (Auto) Abs Immat Gran (auto) Absolute Neuts (auto) Absolute Nucleated RBC Nucleated RBC % POC Capillary Glucose 72 72 RPR Non-reactive 09/14/22 04:14 WBC 8.4 RBC 3.00 L Hgb 9.0 L Hct 27.6 L MCV 92.0 MCH 30.0 MCHC 32.6 RDW 14.4 Plt Count 171 MPV 9.7 Immature Gran % (Auto) 0.2 Neut % (Auto) 78.5 H Lymph % (Auto) 11.1 L [place] % (Auto) 9.5 H Eos % (Auto) 0.5 Baso % (Auto) 0.2 Lymph # (Auto) 0.93 [place] # (Auto) 0.8 H Eos # (Auto) 0.0 Baso # (Auto) 0.0 Abs Immat Gran (auto) 0.02 Absolute Neuts (auto) 6.6 Absolute Nucleated RBC 0.0 Nucleated RBC % 0.0 POC Capillary Glucose RPR OB - PN A/P Assessment and Plan (1) Delivery by section using transverse incision of lower segment of uterus: Code(s): O82 - Encounter for delivery without indication Status: Acute Assessment and Plan: POD#1 doing well continue routine postoperative care encourage ambulation and use of IS dc stahl later today continue to monitor vitals and symptoms Time Spent With Patient Time: Total time spent is greater than 50% in coordination of care (as documented) at patient's floor/unit and/or counseling patient: Review of Systems Review of Systems: All systems reviewed & are unremarkable except as noted in HPI and below Exam Const: General: cooperative, comfortable and no acute distress Other: sitting in chair GI: Inspection: non-distended GI Palp: Yes Soft to palpation and No Tenderness to palpation present (GI) Other: inc covered with bandage, bandage c/d/i fundus firm below umbilicus Urinary Catheter: Urinary Catheter: patent and draining Extrem: Right lower extremity: no edema Left lower extremity: no edema Other: no calf tenderness
[2022-09-14] MEDS: busPIRone HCL 5 MG TABLET 15 MG PO ×2 (10:21→17:11)
[2022-09-14 11:59] VITALS: BP 135/70; PULSE 86; RESP 18; TEMP 36.5; O2SAT 98
[2022-09-14 17:00] VITALS: BP 120/75; PULSE 95; RESP 18; TEMP 36.4; O2SAT 100
[2022-09-14 20:20] VITALS: BP 133/79; PULSE 88; RESP 18; TEMP 36.7; O2SAT 97
[2022-09-14] MEDS: SERTRALINE HCL 25 MG TABLET PO (22:37)
[2022-09-15] VITALS (7 sets, daily range): BP systolic 122–146; BP diastolic 61–84; PULSE 81–96; RESP 16–18; TEMP 36.2–37.1; O2SAT 97–100
[2022-09-15] MEDS: HYDROcodone/acetaminophen (*CRX) 10-325 MG TABLET 1 TAB PO ×4 (01:49→21:17)
[2022-09-15] MEDS: IBUPROFEN 600 MG TABLET PO ×3 (05:41→18:44)
[2022-09-15] MEDS: SIMETHICONE 80 MG TAB.CHEW PO ×4 (05:42→15:51)
--- NOTE | 2022-09-15 08:55 | PM.OBPNVD ---
OB - PN: Subj Subjective Date/time seen: 09/15/22 08:55 Patient doing well. Pain reasonably controlled with medication. Denies any headache, chest pain, SOB, N/V. Tolerating PO diet. Ambulating without difficulty. Voiding without difficulty. Passing flatus. Minimal lochia. OB - PN: Obj Data Labs CBC & Chem 7: 09/14/22 04:14 09/11/22 19:42 OB - PN A/P Assessment and Plan (1) Delivery by section using transverse incision of lower segment of uterus: Code(s): O82 - Encounter for delivery without indication Status: Acute Assessment and Plan: POD#2 doing well continue routine postoperative care encourage ambulation and use of IS anticipate dc home tomorrow Time Spent With Patient Time: Total time spent is greater than 50% in coordination of care (as documented) at patient's floor/unit and/or counseling patient: Review of Systems Review of Systems: All systems reviewed & are unremarkable except as noted in HPI and below Constitutional: Constitutional: Reports as per HPI and Reports no additional constitutional complaints Exam Const: General: cooperative, comfortable and no acute distress GI: Inspection: non-distended GI Palp: Yes Soft to palpation and No Tenderness to palpation present (GI) Other: inc c/d/i fundus firm below umbilicus Extrem: Right lower extremity: no edema Left lower extremity: no edema Other: no calf tenderness
[2022-09-15] MEDS: busPIRone HCL 5 MG TABLET 15 MG PO ×2 (09:01→17:33)
[2022-09-15] MEDS: DOCUSATE SODIUM 100 MG CAPSULE PO ×2 (09:01→17:33)
[2022-09-15] MEDS: MULTIVIT/MIN/PREN/FOL AC/IRON TABLET 1 TAB PO (09:01)
[2022-09-15] MEDS: POLYSACCHARIDE IRON COMPLEX 150 MG CAPSULE PO ×2 (09:02→17:33)
--- NOTE | 2022-09-15 10:24 | WPDANLDPN2 ---
Anes-Prog Note L&D Date/Time: 09/15/22 10:24 Comfortable throughout: section Neuraxial method: spinal Epidural/Spinal procedure site: clean & non-tender Neuro status: Neuro function grossly intact. Cardiovascular status: normal Respiratory status: normal Airway patency: baseline Mental status: baseline Post-Op hydration status: normal Vital Signs: Last Vital Signs Temp 97.4 F L 09/15/22 08:10 Pulse 85 09/15/22 08:10 Resp 18 09/15/22 08:10 BP 126/65 09/15/22 08:10 Pulse Ox 100 09/15/22 08:10 O2 Del Method Room Air 09/14/22 20:20 Pain score (VAS): 2 I/O: Intake & Output 09/14/22 09/15/22 09/15/22 23:59 07:59 15:59 Intake Total 200 Output Total 200 300 Balance 0 -300 Post-procedural complaints: none Patient feedback: Patient satisfied with anesthetic care.
--- NOTE | 2022-09-15 10:25 | WPDANLDNPN2 ---
Anes-Prog Note L&D-Neuraxial Date/Time: 09/15/22 10:25 Neuraxial medications: intrathecal PF morphine Opiod-related complaints: pruritis mild, no treatment Patient feedback: Patient satisfied with post-operative pain management.
--- NOTE | 2022-09-15 11:50 | PC.NURSE ---
Primary RN reported patient is bottle feeding.
[2022-09-15] MEDS: HYDROcodone/acetaminophen (*CRX) 5-325 MG TABLET 1 TAB PO ×3 (12:12→18:44)
[2022-09-15] MEDS: SERTRALINE HCL 25 MG TABLET PO (21:17)
[2022-09-16] MEDS: IBUPROFEN 600 MG TABLET PO ×2 (01:47→08:37)
[2022-09-16] MEDS: HYDROcodone/acetaminophen (*CRX) 5-325 MG TABLET 1 TAB PO ×4 (01:47→11:48)
[2022-09-16 05:00] VITALS: BP 141/85; PULSE 84
[2022-09-16] MEDS: SIMETHICONE 80 MG TAB.CHEW PO ×3 (05:00→11:48)
[2022-09-16 08:00] VITALS: BP 142/82; PULSE 94; RESP 18; TEMP 36.1; O2SAT 100
[2022-09-16] MEDS: busPIRone HCL 5 MG TABLET 15 MG PO (08:36)
[2022-09-16] MEDS: MULTIVIT/MIN/PREN/FOL AC/IRON TABLET 1 TAB PO (08:36)
[2022-09-16] MEDS: POLYSACCHARIDE IRON COMPLEX 150 MG CAPSULE PO (08:36)
[2022-09-16] MEDS: DOCUSATE SODIUM 100 MG CAPSULE PO (08:37)
--- NOTE | 2022-09-16 09:39 | PC.NURSE ---
0820- Primary RN reported patient is bottle feeding with formula and pumping.
--- NOTE | 2022-09-16 10:36 | PC.NURSE ---
Patient viewed the discharge video Mother & Baby Care, The First Two Weeks . Patient was given the opportunity and encouraged to ask questions. Patient verbalized understanding of information shared and has been given the mother/baby guide for home reference.
--- NOTE | 2022-09-16 11:09 | PM.OBPNVD ---
OB - PN: Subj Subjective Date/time seen: 09/16/22 11:09 Patient doing well. Pain reasonably controlled with medication. Denies any headache, chest pain, SOB, N/V. Tolerating PO diet. Ambulating without difficulty. Voiding without difficulty. Passing flatus. Minimal lochia. OB - PN: Obj Data Labs CBC & Chem 7: 09/14/22 04:14 09/11/22 19:42 OB - PN A/P Assessment and Plan (1) Delivery by section using transverse incision of lower segment of uterus: Code(s): O82 - Encounter for delivery without indication Status: Acute Assessment and Plan: POD#3 doing well continue routine postoperative care dc home in stable condition emergency precautions reviewed f/u in office in 1 week Time Spent With Patient Time: Total time spent is greater than 50% in coordination of care (as documented) at patient's floor/unit and/or counseling patient: Review of Systems Review of Systems: All systems reviewed & are unremarkable except as noted in HPI and below Exam Const: General: cooperative, comfortable and no acute distress GI: Inspection: non-distended GI Palp: Yes Soft to palpation and No Tenderness to palpation present (GI) Other: inc c/d/i Extrem: Right lower extremity: no edema Left lower extremity: no edema Other: no calf tenderness
--- NOTE | 2022-09-16 11:09 | PM.OBDSVD ---
DS: Admitting Diagnosis Discharge Date 09/16/22 Admitting Diagnosis IUP at 37w2d gestation Gestational hypertension Gestational Diabetes DS: Discharge Diagnosis Discharge Diagnosis (1) Delivery by section using transverse incision of lower segment of uterus: Code(s): O82 - Encounter for delivery without indication Status: Acute OB - DS: Summary OB Procedures : PIH Mgmt OB Procedures Intrapartum: OB Procedures: : None Peripartum Data Procedures: Procedures Operation Date: 09/13/22 18:30 Actual Procedure Side Surgeon p Section Bilateral Sylvia Pino MD Time Spent with Patient Time attestation: Total time spent providing and/or coordinating discharge services: DS: Data Data Completed and Pending Completed studies during hospitalization: Pending at discharge 09/13/22 19:01 Surgical [PTH] Routine Discharge Plan Discharge Attending physician on discharge: Sylvia Pino Discharging Clinician: Sylvia Pino Anticipated Discharge Date/Time: 09/16/22 11:11 Patient Disposition: Home, Self-Care Activity: as tolerated and pelvic rest Diet: regular Discharge Instructions: Call office ([phone]) to schedule the following appointments: 1. BP check in 1 week. 2. Postoperative/wound check in 2 weeks. 3. visit in 4-6 weeks. You may take Ibuprofen 600mg every 6 hours as needed for pain. I have sent a prescription for a stronger pain medication, [place], to your pharmacy. You may take this as prescribed for breakthrough pain (pain that is not controlled with Ibuprofen). No driving for at least two weeks. You also may not drive while taking narcotics. Pain medication may make you constipated. It may be helpful to take an [id number] stool softener, such as Colace and/or Senokot, along with the pain medication to help lessen constipation. Call office or go to ED for pain not controlled with medication, headache, chest pain, shortness of breath, fever, chills, persistent nausea or vomiting, severe abdominal pain, heavy vaginal bleeding >2 pads/hour, foul vaginal discharge or odor, any redness near incision, severe pain, pus or drainage from incision site, or problems with your breasts. Patient Instructions: Antibiotic Form Stand Alone Forms: General Discharge Information Follow-up/Referrals: Sylvia Pino MD [Physician] - Discharge Medications: New hydrocodone-acetaminophen 5-325 mg Tablet 1 - 2 tablet PO Q4-6H PRN (Reason: Moderate Pain (4-6)) Qty: 30 0RF Continued PNV cmb#95-ferrous fumarate-FA [] 28 mg iron- 800 mcg Tablet 1 tablet PO DAILY (DME) insulin syringe-needle U-100 [Advocate Syringes] 1 mL 30 gauge x 5/16 syringe See Rx Instructions .Route Qty: 100 0RF Rx Instructions: As directed sertraline 25 mg tablet 25 mg PO DAILY buspirone 15 mg tablet 15 mg PO BID (DME) blood-glucose meter [Accu-Chek Guide Glucose Meter] Misc See Rx Instructions .MEDSUPPLY Qty: 1 0RF Rx Instructions: Check blood sugars QID (fasting and 1 hour after meals) (DME) Accu-Chek Guide test strips Strip See Rx Instructions .ROUTE .COMPLEX Qty: 100 2RF Dose Instruction: CHECK BLOOD SUGARS 4 TIMES A DAY (FASTING AND 1 HOUR AFTER MEALS) Rx Instructions: CHECK BLOOD SUGARS 4 TIMES A DAY (FASTING AND 1 HOUR AFTER MEALS) (DME) lancets-blood glucose strips 30 gauge combo pack See Rx Instructions .MEDSUPPLY Qty: 100 2RF Rx Instructions: Check blood sugars QID (fasting and 1 hour after meals) Discontinued valacyclovir 500 mg Tablet 500 mg PO DAILY docusate sodium [Stool Softener] 100 mg Tablet 100 mg PO DAILY alcohol swabs [Alcohol Prep Pads] Pads, Medicated 1 pad topical .COMPLEX Qty: 100 0RF Rx Instructions: 1 pad topically Use one pad to cleanse skin prior to injection; metformin 1,000 mg
[2022-09-17 10:57] VITALS: BP 123/80; PULSE 91; RESP 20; TEMP 36.8; O2SAT 99
== END 2022-09-16 12:35 | disposition home or self-care (01) | DRG 787 ==
LOC: ANHLDR 18:50 → ANHOB2 09-13 22:44
PROVIDERS: Admitting Provider Student in an Organized Health Care Education/Training Program; PCP Registered Nurse; Visit Provider Student in an Organized Health Care Education/Training Program
PROC: 10D00Z1 Extraction of Products of Conception, Low, Open Approach (ICD-10-PCS; CPT 59514; principal; 2022-09-13 18:30)
DX: O62.0 Primary inadequate contractions (principal); O98.52 Other viral diseases complicating childbirth; O13.4 Gestational [pregnancy-induced] hypertension without significant proteinuria, complicating childbirth; O99.214 Obesity complicating childbirth; E66.01 Morbid (severe) obesity due to excess calories; B00.9 Herpesviral infection, unspecified; O99.344 Other mental disorders complicating childbirth; O99.284 Endocrine, nutritional and metabolic diseases complicating childbirth; E28.2 Polycystic ovarian syndrome; O99.824 Streptococcus B carrier state complicating childbirth; O24.424 Gestational diabetes mellitus in childbirth, insulin controlled; Z3A.37 37 weeks gestation of pregnancy; Z37.0 Single live birth; E55.9 Vitamin D deficiency, unspecified
CPT/HCPCS: 36415; 59025; 76819; 80053; 82570; 82948; 84156; 84550; 85025; 85027; 86592; 86850; 86900; 86901; 88307; A9270; J0131; J0290; J1815; J2405; J2590; J2704; J2795; J3010; J7120

== ENCOUNTER 2023-02-23 11:40 | Outpatient (CLI) | payer OTHER, SELFPAY ==
[2023-02-23 11:58] LABS: Basophils Absolute Auto 0.02 K/mm3 (0.00-0.10); Basophils Percent Auto 0.3 % (0.0-1.0); Eosinophils Absolute Auto 0.13 K/mm3 (0.02-0.50); Eosinophils Percent Auto 1.7 % (1.0-6.0); Hemoglobin 12.3 g/dL (12.0-15.0); Immature Granulocyte Absolute 0.02 K/mm3 (0.00-0.00); Immature Granulocyte Percent A 0.3 % (0.0-0.0); Lymphocytes Absolute Auto 2.15 K/mm3 (1.10-4.50); Lymphocytes Percent Auto 27.3 % (18.0-42.0); Mean Corpuscular HGB Conc 34.2 g/dL (32.0-36.0); Mean Corpuscular Hemoglobin 29.1 pg (27.0-31.0); Mean Corpuscular Volume 85.1 fL (78.0-102.0); Mean Platelet Volume 8.8 fl (9.2-11.8); Monocytes Absolute Auto 0.61 K/mm3 (0.10-0.90); Monocytes Percent Auto 7.8 % (2.0-11.0); Neutrophils Absolute Auto 4.9 K/mm3 (1.7-7.2); Neutrophils Percent Auto 62.6 % (50.0-70.0); Platelet Count Result 245 K/mm3 (150-420); Red Blood Count 4.23 M/mm3 (4.20-5.40); Red Cell Distribution Width 15.3 % (11.6-14.4); White Blood Count 7.9 K/mm3 (4.8-10.8)
[2023-02-23 12:35] LABS: Hemoglobin A1C 5.2 % (<5.7)
[2023-02-23 15:11] LABS: Alanine Aminotransferase 22 U/L (14-59); Albumin Level 3.9 g/dL (3.4-5.0); Alkaline Phosphatase 69 U/L (46-116); Anion Gap 7 mmol/L (8-16); Aspartate Amino Transferase 16 U/L (15-37); Bilirubin,Total 0.4 mg/dL (0.00-1.00); Blood Urea Nitrogen 18 mg/dL (7-18); Calcium 9.4 mg/dL (8.5-10.1); Carbon Dioxide 29 mmol/L (21-32); Chloride 104 mmol/L (98-108); Cholesterol 229 mg/dL (0-200); Estimated Glomerular Filt Rate > 60; Ferritin 50 ng/mL (8-252); Glucose 94 mg/dL (70-99); HDL Direct 64 mg/dL (40-60); Iron 64 ug/dL (50-170); LDL Cholesterol Calculated 118 mg/dL (<130); Osmolality Calculated 291 mOsm/kg (285-295); Percent Iron Saturation 19 % (12-57); Potassium 4.6 mmol/L (3.5-5.1); Sodium 140 mmol/L (136-145); Thyroid Stimulating Hormone 18.13 uIU/mL (0.36-3.74); Total Protein 7.6 g/dL (6.4-8.2); Triglycerides 234 mg/dL (0-150)
[2023-02-25 17:10] LABS: Vitamin D 25 Hydroxy 92 ng/mL (30-100)
== END 2023-02-23 11:41 | disposition home or self-care (01) ==
LOC: CHSLAB 11:42
PROVIDERS: PCP Registered Nurse; Visit Provider Registered Nurse
DX: E61.1 Iron deficiency (principal); E28.2 Polycystic ovarian syndrome; R79.89 Other specified abnormal findings of blood chemistry
CPT/HCPCS: 36415; 80053; 80061; 82306; 82728; 83036; 83540; 83550; 84443; 85025

== ENCOUNTER 2023-05-05 10:46 | Outpatient (CLI) | payer OTHER, SELFPAY ==
[2023-05-05 11:33] LABS: Thyroid Stimulating Hormone 4.42 uIU/mL (0.36-3.74)
== END 2023-05-05 10:47 | disposition home or self-care (01) ==
LOC: CHSLAB 10:49
PROVIDERS: PCP Registered Nurse; Visit Provider Registered Nurse
DX: E28.2 Polycystic ovarian syndrome (principal)
CPT/HCPCS: 36415; 84443

== ENCOUNTER 2023-06-23 11:43 | Outpatient (CLI) | payer OTHER, SELFPAY ==
[2023-06-23 13:13] LABS: Thyroid Stimulating Hormone 2.53 uIU/mL (0.36-3.74)
== END 2023-06-23 11:44 | disposition home or self-care (01) ==
LOC: CHSLAB 11:48
PROVIDERS: PCP Registered Nurse; Visit Provider Registered Nurse
DX: E03.9 Hypothyroidism, unspecified (principal)
CPT/HCPCS: 36415; 84443

== ENCOUNTER 2023-09-16 09:51 | Outpatient (CLI) | payer OTHER, SELFPAY ==
[2023-09-22 06:01] LABS: Progesterone 22.5 ng/mL (***)
== END 2023-09-16 09:52 | disposition home or self-care (01) ==
PROVIDERS: PCP Registered Nurse
DX: Z32.00 Encounter for pregnancy test, result unknown (principal)
CPT/HCPCS: 36415; 84144; 84702

== ENCOUNTER 2023-09-20 08:13 | Outpatient (CLI) | payer OTHER, SELFPAY | END 2023-09-20 08:14 | disposition home or self-care (01) | PROVIDERS: PCP Registered Nurse | DX: Z32.00 Encounter for pregnancy test, result unknown (principal) | CPT/HCPCS: 36415; 84144; 84702 ==

== ENCOUNTER 2023-09-27 07:58 | Outpatient (CLI) | payer OTHER, SELFPAY ==
[2023-09-30 14:25] LABS: Progesterone 25.8 ng/mL (***)
== END 2023-09-27 07:59 | disposition home or self-care (01) ==
PROVIDERS: PCP Registered Nurse
DX: Z32.00 Encounter for pregnancy test, result unknown (principal)
CPT/HCPCS: 36415; 84144; 84702

== ENCOUNTER 2023-12-10 14:21 | Outpatient (CLI) | payer OTHER, SELFPAY ==
--- NOTE | ~2023-12-10 | US_ITS ---
Thyroid ultrasound. Clinical History: Nontoxic goiter Findings: Real-time sonography of the thyroid gland was performed. The right lobe measures 4.0 x 1.4 x 1.6 cm. The left lobe measures 4.0 x 1.5 x 0.9 cm. The isthmus is 8 mm in AP diameter. Thyroid parenchyma is homogeneous. No thyroid nodule seen. Impression: Unremarkable exam.. Reviewed, dictated and finalized at location . [facility] Impression: Unremarkable exam..
== END 2023-12-10 14:22 | disposition home or self-care (01) ==
LOC: CHSIMG 14:23
PROVIDERS: PCP Registered Nurse; Visit Provider Registered Nurse
DX: E04.9 Nontoxic goiter, unspecified (principal)
CPT/HCPCS: 76536

== ENCOUNTER 2023-12-23 07:52 | Outpatient (CLI) | payer OTHER, SELFPAY ==
[2023-12-23 08:07] LABS: Appearance Urine Clear (Clear); Bilirubin Urine Negative (Negative); Blood Urine Negative (Negative); Color Urine Yellow (Yellow); Glucose Urine UA Negative (Negative); Ketones Urine Trace (Negative); Leukocyte Esterase Ur Negative (Negative); Nitrate Urine Negative (Negative); Protein Urine Negative (Negative); Urobilinogen Urine 0.2 mg/dL (0.2-1.0); pH Urine 6.5 (5.0-8.0)
[2023-12-23 08:15] LABS: Add Urine Microscopic? YES; Bacteria Urine Trace /hpf; RBC Urine 0-2 /hpf (0-2); Squamous Epithelial Cell Urine Moderate /hpf (Few); WBC Urine 0-3 /hpf (0-3)
[2023-12-23 09:13] LABS: Hematocrit 33.8 % (35.0-49.0); Hemoglobin 11.3 g/dL (12.0-15.0); Mean Corpuscular HGB Conc 33.4 g/dL (32.0-36.0); Mean Corpuscular Hemoglobin 29.4 pg (27.0-31.0); Mean Corpuscular Volume 87.8 fL (78.0-102.0); Mean Platelet Volume 8.6 fl (9.2-11.8); Platelet Count Result 243 K/mm3 (150-420); Red Blood Count 3.85 M/mm3 (4.20-5.40); Red Cell Distribution Width 14.2 % (11.6-14.4); White Blood Count 8.1 K/mm3 (4.8-10.8)
[2023-12-23 09:59] LABS: Glucose 1 Hour PP 50gm Dose 174 mg/dL (70-130); Thyroid Stimulating Hormone 1.03 uIU/mL (0.36-3.74)
[2023-12-23 10:00] LABS: HIV 1 P24 AG Negative (Negative); HIV 1/2 AB Negative (Negative)
[2023-12-26 12:47] LABS: RPR Screen Non-Reactive (Non-Reactive)
[2023-12-26 20:01] LABS: Hepatitis B Surface Antigen Nonreactive (Nonreactive); Hepatitis C Virus Antibody Nonreactive
[2023-12-27 08:59] LABS: Rubella IgG Antibody 0.98 Index
[2023-12-29 08:26] LABS: Hematocrit 34.1 % (35.0-45.0); Hemoglobin 11.5 g/dL (11.7-15.5); RDW 14.4 % (11.0-15.0); Red Blood Cell Count 3.83 Mill/uL (3.80-5.10)
== END 2023-12-23 07:53 | disposition home or self-care (01) ==
LOC: CHSLAB 07:54
PROVIDERS: PCP Registered Nurse; Visit Provider Registered Nurse
DX: Z34.90 Encounter for supervision of normal pregnancy, unspecified, unspecified trimester (principal)
CPT/HCPCS: 36415; 81001; 82947; 83021; 84443; 85027; 86592; 86762; 86787; 86803; 86850; 86900; 86901; 87086; 87340; 87806

== ENCOUNTER 2024-03-17 13:26 | Outpatient (CLI) | payer OTHER, SELFPAY ==
[2024-03-17 13:41] LABS: Hematocrit 33.5 % (35.0-49.0); Hemoglobin 11.3 g/dL (12.0-15.0); Mean Corpuscular HGB Conc 33.7 g/dL (32-36); Mean Corpuscular Hemoglobin 31.2 pg (27.0-31.0); Mean Corpuscular Volume 92.5 fL (78.0-102.0); Mean Platelet Volume 8.5 fl (9.2-11.8); Platelet Count Result 226 K/mm3 (150-420); Red Blood Count 3.62 M/mm3 (4.20-5.40); Red Cell Distribution Width 13.7 % (11.6-14.4); White Blood Count 8.9 K/mm3 (4.8-10.8)
[2024-03-17 14:26] LABS: HIV 1 P24 AG Negative (Negative); HIV 1/2 AB Negative (Negative)
[2024-03-17 14:26] LABS: Free T4 Free Thyroxine 0.95 ng/dL (0.76-1.46); Thyroid Stimulating Hormone 0.56 uIU/mL (0.36-3.74)
[2024-03-20 13:28] LABS: RPR Screen NON-REACTIVE (NON-REACTIVE)
== END 2024-03-17 13:27 | disposition home or self-care (01) ==
LOC: CHSLAB 13:28
PROVIDERS: PCP Obstetrics & Gynecology; Visit Provider Obstetrics & Gynecology
DX: Z34.90 Encounter for supervision of normal pregnancy, unspecified, unspecified trimester (principal)
CPT/HCPCS: 36415; 84439; 84443; 85027; 86592; 87806

== ENCOUNTER 2024-05-22 05:10 | Inpatient (IN) | payer OTHER, SELFPAY ==
[2024-05-22] VITALS (56 sets, daily range): BP systolic 107–149; BP diastolic 45–92; PULSE 54–83; RESP 13–18; TEMP 36.1–36.7; O2SAT 99–100; BMI 37.1; BMI 37.3
[2024-05-22] MEDS: ACETAMINOPHEN 500 MG TABLET 1000 MG PO (05:32)
[2024-05-22] MEDS: LACTATED RINGERS 1,000 ML 125 ML IV CONT (05:54)
[2024-05-22 06:14] LABS: Basophils Percent Auto 0.2 % (0.2-1.2); Eosinophils Absolute Auto 0.1 K/mm3 (0-0.3); Eosinophils Percent Auto 1.2 % (0-4.4); Hematocrit 35.4 % (37.0-47.0); Hemoglobin 12.1 g/dL (12.0-15.0); Immature Granulocyte Absolute 0.03 K/mm3 (0.00-0.031); Immature Granulocyte Percent A 0.4 % (0-0.5); Lymphocytes Absolute Auto 2.22 K/mm3 (0.9-3.2); Lymphocytes Percent Auto 27.5 % (18.3-44.2); Mean Corpuscular HGB Conc 34.2 g/dl (32-36); Mean Corpuscular Hemoglobin 31.3 pg (26-34); Mean Corpuscular Volume 91.7 fl (80-100); Mean Platelet Volume 9.4 fl (7.4-10.4); Monocytes Absolute Auto 0.5 K/mm3 (0.1-0.6); Monocytes Percent Auto 6.2 % (2.6-8.5); Neutrophils Absolute Auto 5.2 K/mm3 (1.3-6.7); Neutrophils Percent Auto 64.5 % (45.5-73.1); Platelet Count Result 206 k/mm3 (150-375); Red Blood Count 3.86 M/mm3 (4.2-5.4); Red Cell Distribution Width 14.1 % (11.5-14.5); White Blood Count 8.1 K/mm3 (4.5-10.0)
--- NOTE | 2024-05-22 06:24 | LDADM ---
This patient, Arabella Heard, was admitted to Labor/Delivery/Recovery 120 on 05/22/24 at 05:10. Plans for labor, pain management and were discussed with patient. Patient/family oriented to hospital policies and general routines including ID bracelet, bed and alarms, visiting hours, pain management, procedures, bathroom and other care routines, personal items, smoking policy, room service/diet and guest tray routines, security routines, and visiting hours. Patient/Family are encouraged to report perceived risks to care and to ask questions if they do not understand what they are told or what they should do. See [facility] for further documentation.
[2024-05-22 06:27] LABS: Anion Gap 9 mmol/L (4-12); Blood Urea Nitrogen 16 mg/dL (7-17); Carbon Dioxide 16 mmol/L (22-30); Chloride 110 mmol/L (98-107); Estimated CRCL calculation 110 ml/min; Estimated Glomerular Filt Rate > 60; Glucose 123 mg/dL (65-110); Potassium 4.1 mmol/L (3.4-5.0); Sodium 135 mmol/L (137-145)
--- NOTE | 2024-05-22 06:42 | PM.IMHP ---
H&P: HPI History of Present Illness Date/Time: 05/22/24 06:42 Chief Complaint: repeat Narrative: Arabella is a 33yo @ 39.3wks who presents for repeat . She has had regular care with Dr. Rodriguez. Her is complicated by: Anxiety: currently taking sertraline and buspirone. EPDS at each trimester Genital HSV: currently takes suppressive therapy Hx GDM: will check 1h GTT with 1st tri labs. 1 hour elevated. 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 Will also obtain the MFM consult with that. She wants to keep her ultrasounds at [facility]. Hx PIH: will monitor BP. Currently taking ASA 81mg. Thyroid disorder: currently taking levothyroxine. Will monitor thyroid levels at each trimester. Hx : repeat at 39-40w Review of Systems Constitutional: Constitutional: Denies chills, Denies fever(s) and Denies headache(s) Eyes: Eyes: Denies change in vision ENT: Denies headache(s) Cardiovascular: Cardiovascular: Denies chest pain and Denies dyspnea Respiratory: Respiratory: Denies dyspnea Genitourinary: Genitourinary: Denies abnormal vaginal bleeding and Denies vaginal discharge Neurologic: Denies headache(s) Psychiatric: Psychiatric: Denies anxiety and Denies depression [facility] Past Medical History Medical History Anxiety Delivery by section using transverse incision of lower segment of uterus Genital herpes GERD (gastroesophageal reflux disease) Gestational diabetes Gestational hypertension History of miscarriage, currently Insomnia Morbid obesity PCOS (polycystic ovarian syndrome) and not yet delivered Seizure, febrile Vitamin D deficiency Surgical History Surgical History H/O laparoscopy scar tissue and polyp removal History of section Family History Family History (Updated 05/19/24 @ 13:59 by Kelly Lucio RN) Grandparent Bone cancer Anxiety Heart disease Thyroid disorder Father Diabetes mellitus Mother Breast cancer Social History Social History Smoking status: Never smoker Second hand tobacco smoke exposure: No Alcohol intake: former Substance use: never Do You Feel Safe in your Home?: Yes Lack of Transportation: No Lack of Food: Never True Current Housing: I Have Housing Concerned About Future Housing: No Difficulty Paying Gas/Electric Bills: No Difficulty Paying for Meds: No Currently Unemployed: No Education: Bachelor's Degree Difficulty w/ Childcare or Family Care: No Living arrangements: with friend(s) Gender identity (if verbalized by the patient): Female Spiritual care concerns: No Agree to blood products: Yes Meds Home Medications and Allergies Home Medications Medication Instructions Recorded Confirmed Type vit no.95-ferrous 1 tablet PO DAILY 07/30/20 05/22/24 History fumarate 28 mg-folic acid 800 mcg tablet () buspirone 15 mg tablet 15 mg PO BID 01/21/22 05/22/24 History sertraline 25 mg tablet 25 mg PO DAILY 01/21/22 05/22/24 History metformin 1,000 mg 24 hr 2,000 mg PO DAILY 10/29/22 05/22/24 History tablet,extended release (gastric reten.) aspirin 81 mg tablet,delayed 81 mg PO DAILY 11/09/23 05/22/24 History release (Adult Aspirin Regimen) cetirizine 10 mg capsule (Zyrtec) 10 mg PO DAILY PRN allergies 11/09/23 05/22/24 History cholecalciferol (vitamin D3) 125 125 mcg PO DAILY 11/09/23 05/22/24 History mcg (5,000 unit) capsule docusate sodium 100 mg capsule 100 mg PO DAILY 11/09/23 05/22/24 History (Stool Softener) levothyroxine 75 mcg capsule 75 mcg PO DAILY 11/09/23 05/22/24 History valacyclovir 500 mg tablet 500 mg PO DAILY 11/09/23 05/22/24 History ferrous sulfate 325 mg (65 mg 325 mg PO DAILY #90 tabs 12/30/23 05/22/24 Rx iron) tablet
--- NOTE | 2024-05-22 06:52 | WPDHPUPDATE1 ---
History and Physical Update Update Date/Time: 05/22/24 06:52 History and Physical has been reviewed, including an updated exam of the patient. There are NO changes in the patient's condition. Risks, benefits, and alternatives have been discussed and questions answered. Patient agrees to proceed with procedure.
[2024-05-22 07:07] LABS: HIV 1/2 Ab P24 Ag Result Negative (Negative)
[2024-05-22] MEDS: LACTATED RINGERS 1,000 ML 999 ML IV CONT (07:11)
--- NOTE | 2024-05-22 07:14 | WPDANESEPPF ---
Anes - Initial Pre Proc Eval Procedure: Operation Date: 05/22/24 07:30 Proposed Procedures p Repeat Section - Sanjuana Neil MD Date/Time: 05/22/24 07:14 Surgeon: Ronaldo Rodriguez MD Pre Op Diagnosis: C/S Patient Data Age: 33 Gender: F Height: 1.7 m Weight: 107.7 kg Last Vital Signs Pulse 77 05/22/24 07:02 BP 130/73 05/22/24 07:02 Allergies Allergy/AdvReac Type Severity Reaction Status Date / Time morphine Allergy Intermediate Rash Verified 05/19/24 13:38 diclofenac Allergy Unknown Abdominal Verified 05/19/24 13:38 Pain Home Medications Medication Instructions Recorded Confirmed Type vit no.95-ferrous 1 tablet PO DAILY 07/30/20 05/22/24 History fumarate 28 mg-folic acid 800 mcg tablet () buspirone 15 mg tablet 15 mg PO BID 01/21/22 05/22/24 History sertraline 25 mg tablet 25 mg PO DAILY 01/21/22 05/22/24 History metformin 1,000 mg 24 hr 2,000 mg PO DAILY 10/29/22 05/22/24 History tablet,extended release (gastric reten.) aspirin 81 mg tablet,delayed 81 mg PO DAILY 11/09/23 05/22/24 History release (Adult Aspirin Regimen) cetirizine 10 mg capsule (Zyrtec) 10 mg PO DAILY PRN allergies 11/09/23 05/22/24 History cholecalciferol (vitamin D3) 125 125 mcg PO DAILY 11/09/23 05/22/24 History mcg (5,000 unit) capsule docusate sodium 100 mg capsule 100 mg PO DAILY 11/09/23 05/22/24 History (Stool Softener) levothyroxine 75 mcg capsule 75 mcg PO DAILY 11/09/23 05/22/24 History valacyclovir 500 mg tablet 500 mg PO DAILY 11/09/23 05/22/24 History ferrous sulfate 325 mg (65 mg 325 mg PO DAILY #90 tabs 12/30/23 05/22/24 Rx iron) tablet blood sugar diagnostic (Accu-Chek #100 strips 03/13/24 05/22/24 Rx Guide test strips) lancets 33 gauge #100 ea 03/23/24 05/22/24 Rx Laboratory Tests 05/22/24 05:28 WBC 8.1 K/mm3 (4.5-10.0) RBC 3.86 L M/mm3 (4.2-5.4) Hgb 12.1 D g/dL (12.0-15.0) Hct 35.4 L % (37.0-47.0) MCV 91.7 fl (80-100) MCH 31.3 pg (26-34) MCHC 34.2 g/dl (32-36) RDW 14.1 % (11.5-14.5) Plt Count 206 k/mm3 (150-375) MPV 9.4 fl (7.4-10.4) Immature Gran % (Auto) 0.4 % (0-0.5) Neut % (Auto) 64.5 % (45.5-73.1) Lymph % (Auto) 27.5 % (18.3-44.2) [place] % (Auto) 6.2 % (2.6-8.5) Eos % (Auto) 1.2 % (0-4.4) Baso % (Auto) 0.2 % (0.2-1.2) Lymph # (Auto) 2.22 K/mm3 (0.9-3.2) [place] # (Auto) 0.5 K/mm3 (0.1-0.6) Eos # (Auto) 0.1 K/mm3 (0-0.3) Baso # (Auto) 0.0 K/mm3 (0.0-0.1) Abs Immat Gran (auto) 0.03 K/mm3 (0.00-0.031) Absolute Neuts (auto) 5.2 K/mm3 (1.3-6.7) Absolute Nucleated RBC 0.000 K/mm3 (0.0-0.012) Nucleated RBC % 0.0 % (0.0-0.2) Sodium 135 L mmol/L (137-145) Potassium 4.1 mmol/L (3.4-5.0) Chloride 110 H mmol/L (98-107) Carbon Dioxide 16 L mmol/L (22-30) Anion Gap 9 mmol/L (4-12) BUN 16 mg/dL (7-17) Creatinine 0.80 mg/dL (0.7-1.0) Estim Creat Clear Calc 110 ml/min Estimated GFR > 60 (59 - ) Glucose 123 H mg/dL (65-110) Calcium 10.0 mg/dL (8.4-10.2) RPR Pending HIV 1&2 Ab/P24 Ag 4thGn Negative (Negative) Blood Type B Positive Antibody Screen Pending Patient hx anesthesia problems: none Family hx anesthesia problems: none Results Review: All pre-operative results and documents have been reviewed as part of the pre-operative evaluation. [facility] Past Medical History Medical History Anxiety Delivery by section using transverse incision of lower segment of uterus Genital herpes GERD (gastroesophageal reflux disease) Gestational diabetes Gestational hypertension History of miscarriage, currently Insomnia Morbid obesity PCOS (polycystic ovarian syndrome) and not yet delivered Seizure, febrile Vitamin D deficiency
[2024-05-22] MEDS: FAMOTIDINE 20 MG/2 ML VIAL IV PUSH (07:15)
[2024-05-22] MEDS: ONDANSETRON INJ 4 MG/2 ML VIAL IV PUSH (07:17)
[2024-05-22] MEDS: ceFAZolin 2 GM/D5W 50 ML 2 GM/50 ML BAG IVPB (07:29)
[2024-05-22] MEDS: KETOROLAC 15 MG/ML VIAL (*BKC) IV PUSH ×3 (08:33→17:38)
--- NOTE | 2024-05-22 08:41 | W.PM.OBCSD ---
OB - Delivery Note Procedure Delivery date: 05/22/24 Pre-op diagnosis: Gestational Diabetes and Previous Delivery Post-op Diagnosis: Same Induction method: None Delivery monitor: External FHT and External Uterine Procedure Performed: Repeat Secondary branch: low cervical, transverse Surgeon: Sanjuana Neil MD Anesthesia type: Spinal Description of Procedure/Findings: uterine window noted along pts right side of the uterus; 4x1cm (small amount of uterine tissue overlying, but very thin); clear fluid. Female infant, delivered cephalic, body cord noted and reduced. Normal tubes and ovaries bilaterally. Good hemostasis at end of case. Specimen: Yes (placenta) Estimated Blood Loss: 485 IV Fluids: 2,200 Urine Output: 400 Pathology: Yes Complications: No immediate complications Condition: Stable Disposition: Floor Baby Date of : 05/22/24 Time of : 08:02 Weeks of gestation at delivery: 39 (.3) gender: Female Weight (pounds): 7 Weight (ounces): 7 presentation: vertex Placenta delivery description: Expressed Cord Vessel Description: 3 Vessels, Clamped/Cut and Delayed Cord Clamping score one minute: 9 score five minutes: 9 Narrative: Arabella was counseled on all risks and benefits in detail. She was taken to the operating room where spinal was placed. She was then prepped and draped in the normal sterile fashion. She received 2g Ancef and a time out was performed. A Pfannenstiel incision was made in the skin and carried down to the underlying fascia. The fascia was nicked on either side of the midline and the fascial incision was extended laterally and superiorly using curved Daley scissors. The fascia was then elevated using Shiv clamps and the underlying rectus muscles were dissected off the fascia, superiorly and inferiorly. The rectus muscles were then in the midline and the peritoneum was entered sharply. Once adequate exposure was obtained, a Mobius self retractor was placed within the abdomen. A bladder flap was created. A low transverse incision was made on the lower uterine segment (uterine window was noted) and clear fluid was noted. The occiput was brought to the hysterotomy and the head was easily delivered. The shoulders and body then followed without complications. The had spontaneous cry and the mouth and nose were bulb suctioned. The cord was clamped and cut and the infant was handed off to the awaiting pediatric nurse. A segment of the cord was collected for cord gases. The remaining cord blood was collected for typing. With pitocin infusing, the placenta delivered with gentle traction on the cord without complications. The uterus was then cleared out of all clots and debris using a clean, moist lap. The hysterotomy was then repaired in a running, interlocking fashion using 0 Vicryl. A second layer imbricating suture was then made using 0 Vicryl. An additional figure of 8 stitch using 0-Vicryl was placed on the right corner of the hysterotomy, and it was found to be hemostatic and good uterine tone was noted. The bilateral adnexa were examined and found to be normal. The pelvis was cleared of all clots and fluid. The Mobius retractor was removed from the abdomen. The peritoneum, muscle, and fascia were examined and made hemostatic with bovie cautery. The fascia was then repaired using a 0 Vicryl suture in a running fashion. The subcutaneous tissue was then irrigated and made hemostatic with bovie cautery. The subcutaneous tissue was then reapproximated using 2-0 Vicryl. The skin was then closed using 4-0 Monocryl in a running subcuticular fashion. A Mepilex dressing was placed over the incision. Sponge, lap, needle and instrument counts were correct at the end of the procedure x2. The patient tolerated the procedure well and was taken to recovery in a stable condition.
[2024-05-22] MEDS: OXYTOCIN 30 UNITS/NS 500 ML 30 UNITS/500 ML BAG 125 UNITS IV CONT (09:02)
[2024-05-22] MEDS: HYDROmorphone HCL INJ (*CRX) 1 MG/ML SYR 0.5 MG IV PUSH ×2 (09:29→09:48)
[2024-05-22] MEDS: LIDOCAINE 5% PATCH 1 PATCH TRANSDERM (10:46)
--- NOTE | 2024-05-22 11:38 | OBPPTRN ---
1055-Patient transferred to post room #282 via stretcher. Support person present. Oriented to unit, room, information board, rooming in, admission packet and security measures. Patient verbalizes understanding.
[2024-05-22] MEDS: ACETAMINOPHEN 325 MG TABLET 650 MG PO ×3 (11:52→23:49)
[2024-05-22] MEDS: SIMETHICONE 80 MG TAB.CHEW PO ×2 (11:53→17:42)
[2024-05-22] MEDS: diphenhydrAMINE HCl INJ 50 MG/ML VIAL 25 MG IV PUSH (11:54)
[2024-05-22] MEDS: DEXTROSE 5%/0.45% SOD CHL 1,000 ML 125 ML IV CONT (13:16)
[2024-05-22 14:08] LABS: Rapid Plasma Reagin Non-Reactive (NonReactive)
[2024-05-22] MEDS: DOCUSATE SODIUM 100 MG CAPSULE PO (17:39)
[2024-05-22] MEDS: busPIRone HCL 5 MG TABLET 15 MG PO (17:40)
[2024-05-22] MEDS: metFORMIN HCL XR 500 MG TAB.SR.24H 2000 MG PO (21:12)
[2024-05-22] MEDS: SERTRALINE HCL 25 MG TABLET PO (21:13)
[2024-05-22] MEDS: HYDROcodone/acetaminophen (*CRX) 5-325 MG TABLET 1 TAB PO ×2 (21:13→23:49)
[2024-05-22] MEDS: CHOLECALCIFEROL 5,000 UNITS TABLET 5000 UNITS BY MOUTH (21:13)
[2024-05-22] MEDS: IBUPROFEN 600 MG TABLET PO (23:49)
[2024-05-23 05:30] LABS: Basophils Percent Auto 0.4 % (0.2-1.2); Eosinophils Absolute Auto 0.1 K/mm3 (0-0.3); Eosinophils Percent Auto 1.2 % (0-4.4); Hemoglobin 9.5 g/dL (12.0-15.0); Immature Granulocyte Absolute 0.03 K/mm3 (0.00-0.031); Immature Granulocyte Percent A 0.4 % (0-0.5); Lymphocytes Absolute Auto 1.79 K/mm3 (0.9-3.2); Lymphocytes Percent Auto 22.3 % (18.3-44.2); Mean Corpuscular HGB Conc 32.8 g/dl (32-36); Mean Corpuscular Hemoglobin 30.8 pg (26-34); Mean Corpuscular Volume 94.2 fl (80-100); Mean Platelet Volume 10.1 fl (7.4-10.4); Monocytes Absolute Auto 0.7 K/mm3 (0.1-0.6); Neutrophils Absolute Auto 5.4 K/mm3 (1.3-6.7); Neutrophils Percent Auto 66.7 % (45.5-73.1); Platelet Count Result 168 k/mm3 (150-375); Red Blood Count 3.08 M/mm3 (4.2-5.4); Red Cell Distribution Width 14.1 % (11.5-14.5)
[2024-05-23] MEDS: ACETAMINOPHEN 325 MG TABLET 650 MG PO ×3 (06:00→21:03)
[2024-05-23] MEDS: SIMETHICONE 80 MG TAB.CHEW PO ×3 (06:00→16:25)
[2024-05-23] MEDS: IBUPROFEN 600 MG TABLET PO ×3 (06:01→21:04)
[2024-05-23] MEDS: IBUPROFEN 600 MG TABLET (06:01)
[2024-05-23] MEDS: LEVOTHYROXINE SODIUM 75 MCG TABLET PO (06:02)
--- NOTE | 2024-05-23 06:33 | PM.OBPNVD ---
OB - PN: Subj Subjective Date/time seen: 05/23/24 07:15 Narrative: POD#1 Arabella reports doing well today. Her bleeding is sugar mixer. Her pain is controlled. She is tolerating regular diet, voiding, passing gas, and ambulating without issues. She denies any issues with her incision. She is bottle feeding; her daughter was transferred overnight for hypoglycemia. OB - PN: Obj Data Labs 05/23/24 03:31 05/22/24 05:28 Labs: Laboratory Results - last 24 hr 05/22/24 05:28 WBC 8.1 RBC 3.86 L Hgb 12.1 D Hct 35.4 L MCV 91.7 MCH 31.3 MCHC 34.2 RDW 14.1 Plt Count 206 MPV 9.4 Immature Gran % (Auto) 0.4 Neut % (Auto) 64.5 Lymph % (Auto) 27.5 [place] % (Auto) 6.2 Eos % (Auto) 1.2 Baso % (Auto) 0.2 Lymph # (Auto) 2.22 [place] # (Auto) 0.5 Eos # (Auto) 0.1 Baso # (Auto) 0.0 Abs Immat Gran (auto) 0.03 Absolute Neuts (auto) 5.2 Absolute Nucleated RBC 0.000 Nucleated RBC % 0.0 Sodium 135 L Potassium 4.1 Chloride 110 H Carbon Dioxide 16 L Anion Gap 9 BUN 16 Creatinine 0.80 Estim Creat Clear Calc 110 Estimated GFR > 60 Glucose 123 H Calcium 10.0 RPR Non-reactive HIV 1&2 Ab/P24 Ag 4thGn Negative Blood Type B Positive Antibody Screen Negative OB - PN A/P Assessment and Plan (1) S/P repeat low transverse : Code(s): Z98.891 - History of uterine scar from previous surgery Status: Acute Plan day: 1 Plan: routine care Comments: - PO pain meds - Regular diet - Ambulation and hydration encouraged - Ok to have day pass to go see daughter Time Spent With Patient Time: Total time spent is greater than 50% in coordination of care (as documented) at patient's floor/unit and/or counseling patient: Review of Systems Constitutional: Constitutional: Denies chills, Denies fever(s) and Denies headache(s) Eyes: Eyes: Denies change in vision ENT: Denies dizziness and Denies headache(s) Cardiovascular: Cardiovascular: Denies chest pain, Denies palpitations and Denies dyspnea Respiratory: Respiratory: Denies cough and Denies dyspnea Gastrointestinal: Gastrointestinal: Denies nausea and Denies vomiting Genitourinary: Comments: normal bleeding Neurologic: Denies dizziness and Denies headache(s) Endocrine: Endocrine: Denies palpitations Exam Const: General: cooperative, comfortable and no acute distress Orientation/consciousness: patient oriented x3 Resp: Effort & Inspection: normal respiratory effort Auscultation: clear to auscultation bilaterally Cardio: Rate: regular rate GI: Inspection: non-distended and incision (covered with clean dressing) GI Palp: Yes abdominal tenderness (appropriate) and Yes Soft to palpation Auscultation: normal bowel sounds : Other: fundus firm Skin: General skin exam: normal color Neuro: General: patient oriented x3 Extrem: General: normal to inspection Psych: Appearance: grossly normal Affect: normal affect Attitude: cooperative
[2024-05-23] MEDS: HYDROcodone/acetaminophen (*CRX) 10-325 MG TABLET 1 TAB PO ×3 (07:40→16:29)
[2024-05-23] MEDS: POLYSACCHARIDE IRON COMPLEX 150 MG CAPSULE PO ×2 (07:41→16:24)
[2024-05-23] MEDS: MULTIVIT/MIN/PREN/FOL AC/IRON TABLET 1 TAB PO (07:41)
[2024-05-23] MEDS: busPIRone HCL 5 MG TABLET 15 MG PO ×2 (07:42→16:25)
[2024-05-23] MEDS: DOCUSATE SODIUM 100 MG CAPSULE PO ×2 (07:42→16:26)
[2024-05-23 07:45] VITALS: BP 139/83; PULSE 73; RESP 18; TEMP 36.8; O2SAT 100
[2024-05-23] MEDS: LIDOCAINE 5% PATCH 1 PATCH TRANSDERM (10:54)
--- NOTE | 2024-05-23 15:26 | PC.NURSE ---
1150 gone on a 4-6 hour Pass to [facility] to visit . SO drove.
--- NOTE | 2024-05-23 15:31 | WPDANLDNPN2 ---
Anes-Prog Note L&D-Neuraxial Date/Time: 05/23/24 15:31 Neuraxial medications: intrathecal PF morphine Opiod-related complaints: none Patient feedback: Patient satisfied with post-operative pain management.
--- NOTE | 2024-05-23 15:32 | WPDANLDPN2 ---
Anes-Prog Note L&D Date/Time: 05/23/24 15:32 Comfortable throughout: section Neuraxial method: spinal Epidural/Spinal procedure site: clean & non-tender Neuro status: Neuro function grossly intact. Cardiovascular status: normal Respiratory status: normal Airway patency: baseline Mental status: baseline Post-Op hydration status: normal Vital Signs: Last Vital Signs Temp 36.8 C 05/23/24 07:45 Pulse 73 05/23/24 07:45 Resp 18 05/23/24 07:45 BP 139/83 05/23/24 07:45 Pulse Ox 100 05/23/24 07:45 O2 Del Method Room Air 05/23/24 07:45 Pain score (VAS): 0 I/O: Intake & Output 05/22/24 05/23/24 05/23/24 23:59 07:59 15:59 Intake Total 225 2000 500 Output Total 1325 2150 400 Balance -1100 -150 100 Post-procedural complaints: none Patient feedback: Patient satisfied with anesthetic care.
[2024-05-23 16:36] VITALS: BP 120/77; PULSE 73; RESP 18; TEMP 36.7; O2SAT 100
[2024-05-23 20:30] VITALS: BP 134/85; PULSE 73; PULSE 98; RESP 18; O2SAT 100
[2024-05-23] MEDS: CHOLECALCIFEROL 5,000 UNITS TABLET 5000 UNITS BY MOUTH (21:54)
[2024-05-23] MEDS: SERTRALINE HCL 25 MG TABLET PO (21:55)
[2024-05-23] MEDS: metFORMIN HCL XR 500 MG TAB.SR.24H 2000 MG PO (21:55)
[2024-05-24] MEDS: IBUPROFEN 600 MG TABLET PO ×2 (03:36→09:21)
[2024-05-24] MEDS: ACETAMINOPHEN 325 MG TABLET 650 MG PO ×2 (03:36→09:20)
--- NOTE | 2024-05-24 06:40 | PM.OBDSVD ---
DS: Admitting Diagnosis Discharge Date 05/24/24 Admitting Diagnosis repeat section DS: Discharge Diagnosis Discharge Diagnosis (1) S/P repeat low transverse : Code(s): Z98.891 - History of uterine scar from previous surgery Status: Acute OB - DS: Summary OB Procedures : NST and Ultrasound OB Procedures Intrapartum: low cervical, transverse OB Procedures: : None Peripartum Data Infant Delivery Method: Section Procedures: Procedures Operation Date: 05/22/24 07:30 Actual Procedure Side Surgeon p Section Not Applicable Sanjuana Neil MD complications: none 1: Gender: Female Disposition of : NICU Status at Discharge Functional status at discharge: independent ambulation Overall status at discharge: patient is back to baseline Time Spent with Patient Time attestation: Total time spent providing and/or coordinating discharge services: Exam Const: General: cooperative, comfortable, no acute distress and obese Orientation/consciousness: patient oriented x3 Resp: Effort & Inspection: normal respiratory effort Auscultation: clear to auscultation bilaterally Cardio: Rate: regular rate GI: Inspection: non-distended and incision (covered w/ clean Mepilex dressing) GI Palp: No abdominal tenderness and Yes Soft to palpation Auscultation: normal bowel sounds : Other: fundus firm Skin: General skin exam: normal color Neuro: General: patient oriented x3 Extrem: General: normal to inspection Psych: Appearance: grossly normal Affect: normal affect Attitude: cooperative DS: Data Data Completed and Pending Pending studies at discharge: Pending at discharge 05/22/24 08:07 Surgical [PTH] Routine Labs on day of discharge: Labs from last 24 hours 05/23/24 03:31 WBC 8.0 RBC 3.08 L Hgb 9.5 L Hct 29.0 L MCV 94.2 MCH 30.8 MCHC 32.8 RDW 14.1 Plt Count 168 MPV 10.1 Immature Gran % (Auto) 0.4 Neut % (Auto) 66.7 Lymph % (Auto) 22.3 [place] % (Auto) 9.0 H Eos % (Auto) 1.2 Baso % (Auto) 0.4 Lymph # (Auto) 1.79 [place] # (Auto) 0.7 H Eos # (Auto) 0.1 Baso # (Auto) 0.0 Abs Immat Gran (auto) 0.03 Absolute Neuts (auto) 5.4 Absolute Nucleated RBC 0.000 Nucleated RBC % 0.0 Discharge Plan Discharge Attending physician on discharge: Sanjuana Neil Discharging Clinician: Sanjuana Neil Anticipated Discharge Date/Time: 05/24/24 08:00 Patient Disposition: Home, Self-Care Activity: pelvic rest Diet: regular Wound Care Instructions: other - see discharge instructions Discharge Instructions: Education: Mom and Baby Guide Given to: Mother Follow-Up: Call your delivering provider's office for an appointment to be seen in: 2 weeks Mom and baby should come to the [facility] for the follow-up appointment. Appointment Date/Time: April at 11:00 am What to expect at your follow-up visit: Physical Assessment Call [phone] if you are unable to keep your appointment time. BREAST CARE: * Wear a snug supportive bra. * For engorgement discomfort: Breast Feeding: * Apply warm moist washcloths * Express milk as needed to relieve engorgement * Wear loose clothing * For sore nipples: * Identify correct latch-on * Apply warm moist washcloths before and after nursing * Air dry nipples after nursing * May apply Lansinoh cream to nipples PERINEAL CARE: * Until bleeding stops, use your elie bottle after urinating * Change your pad frequently throughout the day * You may take sitz baths several times a day (fill your bathtub with warm water and soak for 20 minutes.) Do NOT bathe in the water * No tub baths until seen by your physician - You may shower ACTIVITY: * Rest as much as possible. * Do not exercis
[2024-05-24 08:00] VITALS: BP 123/82; PULSE 78; RESP 16; TEMP 36.4; O2SAT 100
[2024-05-24] MEDS: busPIRone HCL 5 MG TABLET 15 MG PO (09:18)
[2024-05-24] MEDS: POLYSACCHARIDE IRON COMPLEX 150 MG CAPSULE PO (09:19)
[2024-05-24] MEDS: LEVOTHYROXINE SODIUM 75 MCG TABLET PO (09:19)
[2024-05-24] MEDS: MULTIVIT/MIN/PREN/FOL AC/IRON TABLET 1 TAB PO (09:20)
[2024-05-24] MEDS: SIMETHICONE 80 MG TAB.CHEW PO (09:20)
[2024-05-24] MEDS: DOCUSATE SODIUM 100 MG CAPSULE PO (09:20)
--- NOTE | 2024-05-24 20:24 | PC.NURSE ---
1045 [facility] [employer] [facility] gone over with Pt and FOB. They Both V/U'd.
[2024-05-25 11:09] VITALS: BP 130/78; PULSE 77; RESP 18; TEMP 36.7; O2SAT 100
== END 2024-05-24 10:45 | disposition home or self-care (01) | DRG 788 ==
LOC: ANHOB2 05-23 08:03 → ANHLDR 05-25 08:32 → ANHOB2 05-25 08:32
PROVIDERS: Admitting Provider Obstetrics & Gynecology; PCP Registered Nurse; Visit Provider Obstetrics & Gynecology
PROC: 10D00Z1 Extraction of Products of Conception, Low, Open Approach (ICD-10-PCS; CPT 59514; principal; 2024-05-22 07:30)
DX: O34.211 Maternal care for low transverse scar from previous cesarean delivery (principal); Z37.0 Single live birth; Z3A.39 39 weeks gestation of pregnancy; O24.429 Gestational diabetes mellitus in childbirth, unspecified control
CPT/HCPCS: 36415; 80048; 85025; 86592; 86703; 86850; 86900; 86901; 88307; A9270; G0432; J0690; J1170; J1200; J1885; J2274; J2371; J2405; J2590; J7120

== ENCOUNTER 2024-07-14 10:32 | Outpatient (CLI) | payer OTHER, SELFPAY ==
[2024-07-14 10:43] LABS: Hematocrit 36.6 % (35.0-49.0); Mean Corpuscular HGB Conc 32.8 g/dL (32-36); Mean Corpuscular Hemoglobin 29.3 pg (27.0-31.0); Mean Corpuscular Volume 89.3 fL (78.0-102.0); Mean Platelet Volume 8.9 fl (9.2-11.8); Platelet Count Result 275 K/mm3 (150-420); Red Cell Distribution Width 12.3 % (11.6-14.4); White Blood Count 7.1 K/mm3 (4.8-10.8)
[2024-07-14 11:44] LABS: Free T4 Free Thyroxine 0.93 ng/dL (0.76-1.46); Thyroid Stimulating Hormone 0.54 uIU/mL (0.36-3.74)
== END 2024-07-14 10:33 | disposition home or self-care (01) ==
LOC: CHSLAB 10:33
PROVIDERS: PCP Registered Nurse; Visit Provider Nurse Practitioner Family
DX: E03.9 Hypothyroidism, unspecified (principal); D64.9 Anemia, unspecified
CPT/HCPCS: 36415; 84439; 84443; 85027

== ENCOUNTER 2025-02-23 08:13 | Outpatient (CLI) | payer OTHER, SELFPAY ==
--- OUTSIDE RECORDS SUMMARY | 2025-02-23 08:21 | XMS_ITS | Clinical Summary ---
Author Organization [facility] Address [address] [place] [phone] Phone Care Team Providers Care Cross Tie Tram Loader Name Role Phone Unavailable Primary Care Provider Unavailabl e Encounters Date Type Department Care Team Description 02/03/2025 External Device Data STL ABSTRACTION Provider, Abstract 02/02/2025 External Device Data STL ABSTRACTION Provider, Abstract 01/30/2025 External Device Data STL ABSTRACTION Provider, Abstract 01/17/2025 External Device Data STL ABSTRACTION Provider, Abstract 01/16/2025 External Device Data STL ABSTRACTION Provider, Abstract 12/20/2024 External Device Data STL ABSTRACTION Provider, Abstract 12/19/2024 External Device Data STL ABSTRACTION Provider, Abstract from Last 3 Months Social History Tobacco Use Types Packs/Day Years Used Date Smoking Tobacco: Never Assessed Comments Unknown Sex and Gender Information Value Date Recorded Sex Assigned at Not on file Legal Sex Female 8:04 AM CDT Gender Identity Not on file Sexual Orientation Not on file Plan of Treatment Health Maintenance Due Date Last Done Comments HPV/Cotest (21-29) 2011 PAP SMEAR 2011 CERVICAL CANCER SCREENING 2020 HPV/Cotest (30-65) 2020 PAP SMEAR 2020 INFLUENZA VACCINE (#1) 2024 DTAP/TDAP/TD VACCINES (7 - Td or Tdap) 09/04/2032 09/04/2022, 10/29/2016, 09/01/1995, Additional history exists HEPATITIS B VACCINES Completed 10/07/2001, 06/03/2001, 04/29/2001 HPV VACCINES Aged Out No longer eligi ble based on patient's age to complete this topic Insurance [facility] [id number]
--- OUTSIDE RECORDS SUMMARY | 2025-02-23 08:21 | XMS_ITS | Encounter Summary ---
Author Organization [facility] Address [address] [facility] [place] [address] Care Team Providers Care Circle Edger Name Role Phone Hollie Stallings ROOF SERVICE TECHNICIAN-STARCHER AND TENTER RANGE FEEDER Primary Care Provid er Encounter Details Date Type Department Care Team (Late st Contact Info) Description 10/27/2021 Lab Requisition [facility] [address] [place] [address] Mari Chang MD Social History Tobacco Use Types Packs/Day Years Used Date Smoking Tobacco: Never Assessed Sex and Gender Information Value Date Recorded Sex Assigned at Not on file Gender Identity Not on file Sexual Orientation Not on file documented as of this encounter Plan of Treatment Not on file documented as of this encounter Procedures Procedure Name Priority Date/Time Associated Diagnosis Comments HCG BETA BLOOD QUANTITATIVE Routine 10/27/2021 5:17 PM AUTOMOTIVE DISMANTLER documented in this encounter Results * HCG BETA BLOOD QUANTITATIVE (10/27/2021 5:17 PM AUTOMOTIVE DISMANTLER) hCG Quantitative <1.20 mIU/mL 10/27/20 6:21 PM AUTOMOTIVE DISMANTLER [facility] Blood BLOOD SPECIMEN / Unknown Venipuncture / Unknown 10/27/2021 5:17 PM AUTOMOTIVE DISMANTLER 10/27/2021 6:02 PM AUTOMOTIVE DISMANTLER Narrative [facility] - 10/27/2021 6:21 PM AUTOMOTIVE DISMANTLER hCG Reference Range, mIU/mL: Males 0-2.0 Non Females 0-6.0 Perimenopausal Females ages 41-55* 0-7.7 Postmenopausal Females age >55* 0-14 Females, Weeks after Last Menstrual Period 0.2-1 week 5-50 1 - 2 weeks 50-500 2 - 3 weeks 100-5000 3 - 4 weeks 500-10,000 4 - 5 weeks 1000-50,000 5 - 6 weeks 10,000-100,000 6 - 8 weeks 15,000-200,000 2 - 3 months 10,000-100,000 Trophoblastic Disease >100,000 *In higher than expected hCG in females > age 40, a serum FSH >20 IU/L makes unlikely. Mari Chang MD LAB - CHEMISTRY DIANA KOLB [facility] Organization Address City/State/[facility] Co de Phone Number [facility] [address] [place] [address] documented in this encounter Visit Diagnoses Not on filedocumented in this encounter Care Teams Circle Edger Relationship Specialty Start Date End Date Hollie Stallings APRN-STARCHER AND TENTER RANGE FEEDER [address] [place] [address] [place] [address] PCP - General 09/25/22 documented as of this encounter
--- OUTSIDE RECORDS SUMMARY | 2025-02-23 08:21 | XMS_ITS | Clinical Summary ---
Author Organization [facility] Address [address] [facility] [place] [address] Care Team Providers Care Accuracy Expert Name Role Phone Hollie Stallings MATERIALS INTERN-GAS TREATER Primary Care Provid er Source Comments [facility],non-owned Affiliates and Associated Physician Practices is amultiple site organization consisting of ambulatory clinics and hospital sitesin [place], [place], [place] and [place]. This disclosure is being madepursuant to the Care Everywhere program and may not contain all information available regarding this patient. Last updated 18.[facility] Allergies Active Allergy Reactions Criticality Noted Date Comments Diclofenac Epolamine Nausea and/or Vomiting 04/2024 Morphine Unknown 09/02/2022 agitation Medications * Be aware that medications may not be up to date on this document. Alwaysverify current medications with the patient. Medication Sig Dispensed Refills Start Date End Date Status Glucagon (Baqsimi One Pack) 3 MG/DOSE POWD [place] 3 mg into the nose as needed 1 Each 1 08/19/2022 Active Insulin Pen Needle 32G X 4 MM MISC Use 1 Each 2 times daily 100 Each 2 08/19/2022 Active Additional Information Patient not taking.Reported on 03/08/2024 insulin lispro (HumaLOG;ADMelog) 100 UNIT/ML pen Inject 8 (eight) Units to 20 (twenty) Units subcutaneously 2 times daily, before breakfast and supper Start with 4 units before breakfast and dinner. 15 mL 1 08/19/2022 Active Additional Information Patient not taking.Reported on 03/08/2024 Vit-Fe Fumarate-FA ( vitamin) 28-0.8 MG tabletIndications: Take 1 (one) tablet by mouth once daily Reasons: Active aspirin (Aspirin) 81 MG chew tablet Take 2 (two) tablets by mouth once daily Active cetirizine (ZyrTEC) 10 MG tablet Active metFORMIN (Glucophage) 1000 MG tabletIndications: PCOS Take 2 (two) tablets by mouth at bedtime Reasons: PCOS Active ferrous sulfate 325 (65 FE) MG tabletIndications: Iron Deficiency Take 1 (one) tablet by mouth 2 times daily with morning and evening meal Reasons: Iron Deficiency Active valACYclovir (Valtrex) 500 MG tablet Take 1 (one) tablet by mouth 2 times daily Active sertraline (Zoloft) 50 MG tablet Take 0.5 (one-half) tablet by mouth at bedtime Active busPIRone (Buspar) 15 MG tabletIndications: Anxiety Disorder Take 1 (one) tablet by mouth 2 times daily Reasons: Anxiety Disorder Active vitamin D3 (Cholecalciferol) 25 MCG (1000 UNITS) tabletIndications: Vitamin D Deficiency Take 5 (five) tablets by mouth once daily Reasons: Vitamin D Deficiency Active insulin NPH (HumuLIN N; NovoLIN N) vialIndications:Ge stational Diabetes Inject 20 Units subcutaneously Inject 26 units @ HS. Reasons: Diabetes During Active docusate sodium (Colace) 100 MG capsuleIndications :Constipation Take 2 (two) capsules by mouth once daily Reasons: Constipation Active levothyroxine (Synthroid) 75 MCG tablet Take 1 (one) tablet by mouth daily before breakfast Active Active Problems Problem Noted Date Diagnosed Date resulting from in vitro fertilization in second trimester 02/13/2024 Gestational diabetes mellitus 08/17/2022 Overview (01/26/2024): Hx PCOS, dosing Metformin 2000 mg qhs x >5 yrs per pt Hx A2GDM; did pass 6wk glucose challenge Baseline A1C 5.3% 12/23 GCT at 17wk6d: 174 mg/dl PPBMI 37 (67 , 236 lbs) Hx of spontaneous , currently 0 08/17/2022 Overview (08/17/2022): Dec 2021 Social History Tobacco Use Types Packs/Day Years Used Date Smoking Tobacco: Never Smokeless Tobacco: Never Alcohol Use Standard Drinks/Week Comments Never 0 (1 standard drink = 0.6 oz pur e alcohol) Sex and Gender Information Value Date Recorded Sex Assigned at Not on file Gender Identity Not on file Sexual Orientation Not on file Last Filed Vital Signs Vital Sign Reading Time Taken Comments Blood Pressure 116/68 05/16/2024 1:58 PM CDT Pulse 76 05/16/2024 1:58 PM CDT Temperature - - Respiratory Rate - - Oxygen Saturation - - Inhaled Oxygen Concentration - - Weight 108 kg (238 lb) 05/03/2024 1:18 PM CDT Height 170.2 cm (5' 7 ) 02/09/2024 12:53 PM CDT Body Mass Index 37.28 02/09/2024 12:53 PM CDT Plan of Treatment Health Maintenance Due Date Last Done Comments PAP SMEAR 1990 HIV SCREENING 2005 HEPATITIS C SCREENING 09/08/2008 DTAP/TDAP/TD VACCINES (1 - Tdap) 2009 HEPATITIS B VACCINE (1 of 3 - 19+ 3-dose series) 2009 COVID-19 VACCINE (3 - season) 2024 05/12/2022, 04/21/2022 INFLUENZA VACCINE (#1) 2024 , 09/03/2021, 09/07/2019, Additional history exists DEPRESSION SCREENING 11/29/2024 ZOSTER VACCINE (1 of 2) 2040 HIB VACCINE Aged Out No longer eligi ble based on patient's age to complete this topic HPV VACCINE Aged Out No longer eligi ble based on patient's age to complete this topic MENINGOCOCCAL (Group B) VACCINE SHARED DECISION-MAKING Aged Out No longer eligible based on patient's age to complete this topic MENINGOCOCCAL GROUPS A/C/Y/W VACCINE Aged Out No longer eligible based on patient's age to complete this topic PNEUMOCOCCAL VACCINE Aged Out No long er eligible based on patient's age to complete this topic Care Teams Accuracy Expert Relationship Specialty Start Date End Date Hollie Stallings APRN-GAS TREATER [address] [place] [address] [place] [address] PCP - General 09/25/22
[2025-02-23 08:29] LABS: Basophils Absolute Auto 0.02 K/mm3 (0.00-0.10); Basophils Percent Auto 0.3 % (0.0-1.0); Eosinophils Percent Auto 1.5 % (1.0-6.0); Hematocrit 36.5 % (35.0-49.0); Immature Granulocyte Absolute 0.03 K/mm3 (0.00-0.00); Immature Granulocyte Percent A 0.5 % (0.0-0.0); Lymphocytes Absolute Auto 1.59 K/mm3 (1.10-4.50); Lymphocytes Percent Auto 24.2 % (18.0-42.0); Mean Corpuscular HGB Conc 32.9 g/dL (32-36); Mean Corpuscular Volume 91.3 fL (78.0-102.0); Mean Platelet Volume 8.5 fl (9.2-11.8); Monocytes Absolute Auto 0.62 K/mm3 (0.10-0.90); Monocytes Percent Auto 9.4 % (2.0-11.0); Neutrophils Absolute Auto 4.22 K/mm3 (1.70-7.20); Neutrophils Percent Auto 64.1 % (50.0-70.0); Platelet Count Result 209 K/mm3 (150-420); Red Cell Distribution Width 13.2 % (11.6-14.4); White Blood Count 6.6 K/mm3 (4.8-10.8)
[2025-02-23 11:16] LABS: Alanine Aminotransferase 32 U/L (14-59); Albumin Level 3.6 g/dL (3.4-5.0); Alkaline Phosphatase 71 U/L (46-116); Anion Gap 8 mmol/L (4-12); Aspartate Amino Transferase 22 U/L (15-37); Bilirubin,Total 0.3 mg/dL (0.00-1.00); Blood Urea Nitrogen 23 mg/dL (7-18); Calcium 9.1 mg/dL (8.5-10.1); Carbon Dioxide 27 mmol/L (21-32); Chloride 102 mmol/L (98-108); Estimated Glomerular Filt Rate > 60; Glucose 78 mg/dL (70-99); Iron 41 ug/dL (50-170); Osmolality Calculated 286 mOsm/kg (285-295); Percent Iron Saturation 13 % (12-57); Potassium 4.6 mmol/L (3.5-5.1); Sodium 137 mmol/L (136-145); Thyroid Stimulating Hormone 2.56 uIU/mL (0.36-3.74)
[2025-02-23 14:29] LABS: Hemoglobin A1C 4.9 % (<5.7)
[2025-02-23 15:06] LABS: Ferritin 42 ng/mL (8-252)
[2025-02-25 07:33] LABS: Vitamin D 25 Hydroxy 107 ng/mL (30-100)
== END 2025-02-23 08:14 | disposition home or self-care (01) ==
PROVIDERS: PCP Registered Nurse; Visit Provider Registered Nurse
DX: E61.1 Iron deficiency (principal); Z13.1 Encounter for screening for diabetes mellitus
CPT/HCPCS: 36415; 80053; 82306; 82728; 83036; 83540; 83550; 84443; 85025

== ENCOUNTER 2025-06-18 07:27 | Outpatient (CLI) | payer OTHER, SELFPAY ==
--- OUTSIDE RECORDS SUMMARY | 2025-06-18 07:31 | XMS_ITS | Encounter Summary ---
Author Organization [facility] Address [facility] [place] [address] Care Team Providers Care Printing Grey Cloth Tender Name Role Phone Hollie Stallings [facility] Primary Care Provider [phone] Encounter Details Date Type Department Care Team (Late st Contact Info) Description 08/19/2020 [employer] Message Enc [facility] [address] [place] [address] Hollie Stallings [facility] [address] [place] [phone] RE: Follow Up/Update Social History Tobacco Use Types Packs/Day Years Used Date Smoking Tobacco: Never Smokeless Tobacco: Never Alcohol Use Standard Drinks/Week Comments No 0 (1 standard drink = 0.6 oz pur e alcohol) AUDIT-C Answer Date Recorded Frequency of Alcohol Consumption Never 05/08/2019 Average Number of Drinks Not on file 019 Frequency of Binge Drinking Not on file 04/29 Comments No Sex and Gender Information Value Date Recorded Sex Assigned at Female 02/16/2025 9:55 AM CDT Legal Sex Female 5:29 PM CDT Gender Identity Not on file Sexual Orientation Not on file 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 No / Unsure 08/22/2020 9:10 AM CDT documented as of this encounter Progress Notes * Patricia Manriquez LPN - 08/20/2020 3:44 PM CDT ER visit on Hollie GIRARD desk to review. Follow up appt scheduled for 08/22/2020. Patient good with appointment on . * LEXI Vaca - 08/20/2020 9:29 AM CDT Can we get labs and ER visit? * Patricia Manriquez LPN - 08/20/2020 8:57 AM CDT Forward to Hollie GIRARD to advise. documented in this encounter Plan of Treatment Not on file documented as of this encounter Visit Diagnoses Not on filedocumented in this encounter Care Teams Printing Grey Cloth Tender Relationship Specialty Start Date End Date Hollie Stallings FNP [address] [place] [address] [place] [address] PCP - General Nurse Practitioner Family 02/02/19 documented as of this encounter
--- OUTSIDE RECORDS SUMMARY | 2025-06-18 07:31 | XMS_ITS | Encounter Summary ---
Author Organization [facility] Address [facility] [place] [address] Care Team Providers Care Administrator Pesticide Name Role Phone Hollie Stallings Primary Care Provider [phone] Encounter Details Date Type Department Care Team (Late st Contact Info) Description 10/01/2019 [employer] Message Enc [facility] [address] [place] [phone] Hollie Stallings FNP [address] [place] [phone] RE: Medication Questions Social History Tobacco Use Types Packs/Day Years [...] file Not on file Not on file documented as of this encounter Progress Notes * LEXI Vaca - 10/03/2019 9:04 AM CST noted ILE PROCESSING MANAGER * Minda Bartholomew LPN - 10/03/2019 8:34 AM CST See new message. ILE PROCESSING MANAGER * Patricia Manriquez LPN - 10/02/2019 1:24 PM CST Forward to Hollie GIRARD. ILE PROCESSING MANAGER * Patricia Manriquez LPN - 10/02/2019 8:00 AM CST Forward to Hollie CARREONC to advise. ILE PROCESSING MANAGER documented in this encounter Plan of Treatment Not on file documented as of this encounter Visit Diagnoses Not on filedocumented in this encounter Care Teams Administrator Pesticide Relationship Specialty Start Date End Date Hollie Stallings FNP [address] [place] [address] [place] [address] PCP - General Nurse Practitioner Family 02/02/19 documented as of this encounter
--- OUTSIDE RECORDS SUMMARY | 2025-06-18 07:31 | XMS_ITS | Encounter Summary ---
Author Organization [facility] Address [facility] [place] [address] Care Team Providers Care Semiconductor Wafer Inspector Name Role Phone Hollie Stallings [facility] Primary Care Provider [phone] [phone] Encounter Details Date Type Department Care Team (Late st Contact Info) Description 01/28/2020 [employer] Message Enc [facility] [address] [place] [phone] Hollie Stallings [facility] [address] [place] [phone] RE: RE: Medication Questions Social History Tobacco Use [...] Progress Notes * Patricia Manriquez LPN - 01/29/2020 4:37 PM CST Medication refilled. ER OFF * LEXI Vaca - 01/29/2020 4:28 PM CST Fine to refill medications as requested x 1 month. ER OFF * Patricia Manriquez LPN - 01/29/2020 2:09 PM CST Office visit in January noted return in 02-25-2020. Ok to refill Metformin and valtrex x 1 month? ER OFF documented in this encounter Plan of Treatment Not on file documented as of this encounter Visit Diagnoses Not on filedocumented in this encounter Care Teams Semiconductor Wafer Inspector Relationship Specialty Start Date End Date Hollie Stallings FNP [address] [place] [address] [place] [address] PCP - General Nurse Practitioner Family 02/02/19 documented as of this encounter
--- OUTSIDE RECORDS SUMMARY | 2025-06-18 07:31 | XMS_ITS | Encounter Summary ---
Author Organization [facility] Address [facility] [place] [address] Care Team Providers Care Credit Card Clerk Name Role Phone Hollie Stallings [facility] Primary Care Provider [phone] Encounter Details Date Type Department Care Team (Late st Contact Info) Description 01/15/2023 [employer] Message Enc [facility] [address] [place] [phone] Hollie Stallings [facility] [address] [place] [phone] Blood pressure Social History Tobacco Use Types Packs/Day Years Used Date Smoking Tobacco: Never Smokeless Tobacco: Never Alcohol Use Standard Drinks/Week Comments No 0 (1 standard drink = 0.6 oz pur e alcohol) AUDIT-C Answer Date Recorded Frequency of Alcohol Consumption Never 05/08/2019 Average Number of Drinks Not on file 019 Frequency of Binge Drinking Not on file 04/29 PHQ-2 Answer Date Recorded Patient Health Questionnaire-2 Score 0 12/31/2022 Comments Yes Sex and Gender Information Value Date Recorded Sex Assigned at Female 02/16/2025 9:55 AM CDT Legal Sex Female 5:29 PM CDT Gender Identity Not on file Sexual Orientation Not on file 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 No / Unsure 12/31/2022 9:47 AM SPIKE MACHINE OPERATOR documented as of this encounter Plan of Treatment Not on file documented as of this encounter Visit Diagnoses Not on filedocumented in this encounter Care Teams Credit Card Clerk Relationship Specialty Start Date End Date Hollie Stallings FNP [address] [place] [address] [place] [address] PCP - General Nurse Practitioner Family 02/02/19 documented as of this encounter
--- OUTSIDE RECORDS SUMMARY | 2025-06-18 07:31 | XMS_ITS | Clinical Summary ---
Author Organization [facility] Address [address] [place] [address] Phone Care Team Providers Care Documentation Supervisor Name Role Phone Unavailable Primary Care Provider Unavailabl e Social History Tobacco Use Types Packs/Day Years Used Date Smoking Tobacco: Never Assessed Comments Unknown Sex and Gender Information Value Date Recorded Sex Assigned at Not on file Legal Sex Female 8:04 AM CDT Gender Identity Not on file Sexual Orientation Not on file Plan of Treatment Health Maintenance Due Date Last Done Comments HPV VACCINES (1 - 3-dose series) 2005 HPV/Cotest (21-29) 2011 CERVICAL CANCER SCREENING 2020 HPV/Cotest (30-65) 2020 PAP SMEAR 2020 INFLUENZA VACCINE (#1) 2025 DTAP/TDAP/TD VACCINES (7 - T d or Tdap) 09/04/2032 09/04/2022, 10/29/2016, 09/01/1995, Additional history exists HEPATITIS B VACCINES Completed 10/07/2001, 06/03/2001, 04/29/2001 Insurance [employer] [id number] Member Subscriber Plan / Payer (Ef fective 2022-Present) Name:SANDRA HEARD Relation to Subscriber:Spouse Name:IZZY HEARD Date of :1991 (Home) Address: [address] [place] [address] Payer ID:[id number] (NAIC) Type:[facility] Address: [facility] [address] [place] [id number]
--- OUTSIDE RECORDS SUMMARY | 2025-06-18 07:31 | XMS_ITS | Encounter Summary ---
Author Organization [facility] Address [facility] [place] [address] Care Team Providers Care Travel Pt Name Role Phone Hollie Stallings [facility] Primary Care Provider [phone] Encounter Details Date Type Department Care Team (Late st Contact Info) Description 04/30/2021 [employer] Message Enc [facility] [address] [place] [address] Hollie Stallings [facility] [address] [place] [phone] RE: RE: RE: FW: Medication Questions Social History Tobacco Use Types [...] of this encounter Progress Notes * Patricia Manriquez, DANUTA - 05/01/2021 10:31 AM CDT Correction # 60 on buspirone. Confirmed with Hollie ELLIOTT-C. * Patricia Manriquez LPN - 05/01/2021 9:44 AM CDT Message sent to patient via my chart. * LEXI Vaca - 05/01/2021 8:46 AM CDT Fine to increase buspirone to 15mg po BID disp #30 no refill; needs OV in two weeks for follow up * Patricia Manriquez LPN - 05/01/2021 7:39 AM CDT Forward to Hollie CARREONC. documented in this encounter Plan of Treatment Not on file documented as of this encounter Visit Diagnoses Diagnosis Anxiety Anxiety state, unspecified documented in this encounter Care Teams Travel Pt Relationship Specialty Start Date End Date Hollie Stallings FNP [address] [place] [address] [place] [address] PCP - General Nurse Practitioner Family 02/02/19 documented as of this encounter
--- OUTSIDE RECORDS SUMMARY | 2025-06-18 07:31 | XMS_ITS | Encounter Summary ---
Author Organization [facility] Address [facility] [place] [address] Care Team Providers Care Rn Home Care Name Role Phone Hollie Stallings [facility] Primary Care Provider [phone] [phone] Encounter Details Date Type Department Care Team (Late st Contact Info) Description 08/22/2020 [employer] Message Enc [facility] [address] [place] [address] Hollie Stallings [facility] [address] [place] [phone] RE: Follow Up/Update Social History Tobacco Use [...] AM CDT documented as of this encounter Plan of Treatment Not on file documented as of this encounter Visit Diagnoses Not on filedocumented in this encounter Care Teams Rn Home Care Relationship Specialty Start Date End Date Hollie Stallings FNP [address] [place] [address] [place] [address] PCP - General Nurse Practitioner Family 02/02/19 documented as of this encounter
--- OUTSIDE RECORDS SUMMARY | 2025-06-18 07:31 | XMS_ITS | Encounter Summary ---
Author Organization [facility] Address [address] [place] [address] Care Team Providers Care Marine Insurance Claim Examiner Name Role Phone Hollie Stallings NUT PACKER-INTEGRATED CIRCUIT IC LAYOUT DESIGNER Primary Care Provid er Encounter Details Date Type Department Care Team (Late st Contact Info) Description 10/27/2021 Lab Requisition [facility] [address] [place] [address] Mari Chang MD Social History Tobacco Use Types Packs/Day Years Used Date Smoking Tobacco: Never Assessed Comments Unknown Sex and Gender Information Value Date Recorded Sex Assigned at Not on file Legal Sex Female 5:25 AM INSPECTOR SUBASSEMBLY Gender Identity Not on file Sexual Orientation Not on file documented as of this encounter Plan of Treatment Not on file documented as of this encounter Procedures Procedure Name Priority Date/Time Associated Diagnosis Comments HCG BETA BLOOD QUANTITATIVE Routine 10/27/2021 5:17 PM INSPECTOR SUBASSEMBLY documented in this encounter Results * HCG BETA BLOOD QUANTITATIVE (10/27/2021 5:17 PM INSPECTOR SUBASSEMBLY) hCG Quantitative <1.20 mIU/mL 10/27/20 6:21 PM INSPECTOR SUBASSEMBLY [facility] Blood BLOOD SPECIMEN / Unknown Venipuncture / Unknown 10/27/2021 5:17 PM INSPECTOR SUBASSEMBLY 10/27/2021 6:02 PM INSPECTOR SUBASSEMBLY Narrative [facility] - 10/27/2021 6:21 PM INSPECTOR SUBASSEMBLY hCG Reference Range, mIU/mL: Males 0-2.0 Non [...] unlikely. Mari Chang MD LAB - CHEMISTRY ORDERABLES Final Result [facility] [address] [place], [place] [id number] documented in this encounter Visit Diagnoses Not on filedocumented in this encounter Care Teams Marine Insurance Claim Examiner Relationship Specialty Start Date End Date Hollie Stallings, DIDI-INTEGRATED CIRCUIT IC LAYOUT DESIGNER [address] [place] [address] [place] [address] PCP - General 09/25/22 documented as of this encounter
--- OUTSIDE RECORDS SUMMARY | 2025-06-18 07:31 | XMS_ITS | Clinical Summary ---
Author Organization [facility] Address [address] [facility] [place] [address] Care Team Providers Care Physician Assistant Psychiatry Name Role Phone Hollie Stallings [employer]AIL STORE MANAGER-[facility] [employer] Primary Care Provid er Source Comments [facility],non-owned Affiliates and Associated Physician Practices is amultiple site organization consisting of ambulatory clinics and hospital sitesin [place], [place], [place] and [place]. This disclosure is being madepursuant to the Care Everywhere program and may not contain all information available regarding this patient. Last updated 18.[facility] Allergies Active Allergy Reactions Criticality Noted Date Comments Diclofenac Epolamine Nausea and/or Vomiting 04/2024 Morphine Unknown 09/02/2022 agitation Medications * Be aware that medications may not be up to date on this document. Alwaysverify current medications with the patient. Glucagon (Baqsimi One Pack) 3 MG/DOSE POWD [place] 3 mg into the nose as needed 1 Each 1 2 Active Insulin Pen Needle 32G X 4 MM MISC Use 1 Each 2 times daily 100 Each 2 2 Active Additional Information Patient not taking.Reported on 03/08/2024 insulin lispro (HumaLOG;ADMel og) 100 UNIT/ML pen Inject 8 (eight) Units to 20 (twenty) Units subcutaneously 2 times daily, before breakfast and supper Start with 4 units before breakfast and dinner. 15 mL 1 2 Active Additional Information Patient not taking.Reported on 03/08/2024 Vit-Fe Fumarate-FA ( vitamin) 28-0.8 MG tabletIndicati ons: Take 1 (one) tablet by mouth once daily Reasons: Active aspirin (Aspirin) 81 MG chew tablet Take 2 (two) tablets by mouth once daily Active cetirizine (ZyrTEC) 10 MG tablet Active metFORMIN (Glucophage) 1000 MG tabletIndicati ons:PCOS Take 2 (two) tablets by mouth at bedtime Reasons: PCOS Active ferrous sulfate 325 (65 FE) MG tabletIndicati ons:Iron Deficiency Take 1 (one) tablet by mouth 2 times daily with morning and evening meal Reasons: Iron Deficiency Active valACYclovir (Valtrex) 500 MG tablet Take 1 (one) tablet by mouth 2 times daily Active sertraline (Zoloft) 50 MG tablet Take 0.5 (one-half) tablet by mouth at bedtime Active busPIRone (Buspar) 15 MG tabletIndicati ons:Anxiety Disorder Take 1 (one) tablet by mouth 2 times daily Reasons: Anxiety Disorder Active vitamin D3 (Cholecalcifer ol) 25 MCG (1000 UNITS) tabletIndicati ons:Vitamin D Deficiency Take 5 (five) tablets by mouth once daily Reasons: Vitamin D Deficiency Active insulin NPH (HumuLIN N; NovoLIN N) vialIndication s:Gestational Diabetes Inject 20 Units subcutaneously Inject 26 units @ HS. 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 Gender Identity Not on file Sexual Orientation Not on file Last Filed Vital Signs Vital Sign Reading Time Taken Comments Blood Pressure 116/68 05/16/2024 1:58 PM CDT Pulse 76 05/16/2024 1:58 PM CDT Temperature - - Respiratory Rate - - Oxygen Saturation - - Inhaled Oxygen Concentration - - Weight 108 kg (238 lb) 05/03/2024 1:18 PM CDT Height 170.2 cm (5' 7) 02/09/2024 12:53 PM CDT Body Mass Index 37.28 02/09/2024 12:53 PM CDT Plan of Treatment Health Maintenance Due Date Last Done Comments HIV SCREENING 2005 HEPATITIS C SCREENING 09/08/2008 DTAP/TDAP/TD VACCINES (1 - Tdap) 2009 HEPATITIS B VACCINE (1 of 3 - 19+ 3-dose series) 2009 PAP SMEAR 2011 HPV VACCINE (1 - 3-dose SCDM series) 2017 COVID-19 VACCINE ( - season) 2024 05/12/2022, 04/21/2022 DEPRESSION SCREENING 11/29/2024 INFLUENZA VACCINE (#1) 2025 , 09/03/2021, 09/07/2019, Additional history exists ZOSTER VACCINE (1 of 2) 2040 HIB [...] patient's age to complete this topic Insurance [facility] Address: [address] [id number] Care Teams Physician Assistant Psychiatry Relationship Specialty Start Date End Date Hollie Stallings APRN-ALISIA [address] [place] [address] [place] [address] PCP - General 09/25/22
--- OUTSIDE RECORDS SUMMARY | 2025-06-18 07:31 | XMS_ITS | Encounter Summary ---
Author Organization [facility] Address [facility] [place] [address] Care Team Providers Care Milk Receiver Tank Truck Name Role Phone Hollie Stallings [facility] Primary Care Provider [phone] Encounter Details Date Type Department Care Team (Late st Contact Info) Description 09/01/2021 [employer] Message Enc [facility] [address] [place] [address] Hollie Stallings [facility] [address] [place] [phone] RE: RE: RE: Question Social History Tobacco Use Types Packs/Day Years [...] have Coronavirus / COVID-19? No / Unsure 08/11/2021 10:50 AM CDT documented as of this encounter Progress Notes * Patricia Manriquez LPN - 09/02/2021 2:09 PM CDT Message sent to patient. * Patricia Manriquez LPN - 09/02/2021 1:49 PM CDT Message sent to patient. * LEXI Vaca - 09/02/2021 11:41 AM CDT Will [facility] accept the order by the fertility doctor? Usually the cost is from where thelabs are collected and ran, not determined by the ordering provider. I am happy to help if needed but often times the order can be taken elsewhere to be collected. * Patricia Manriquez LPN - 09/01/2021 4:32 PM CDT Forward to Hollie HAYSP-C. documented in this encounter Plan of Treatment Not on file documented as of this encounter Visit Diagnoses Not on filedocumented in this encounter Care Teams Milk Receiver Tank Truck Relationship Specialty Start Date End Date Hollie Stallings FNP [address] [place] [address] [place] [address] PCP - General Nurse Practitioner Family 02/02/19 documented as of this encounter
--- OUTSIDE RECORDS SUMMARY | 2025-06-18 07:31 | XMS_ITS | Encounter Summary ---
Author Organization [facility] Address [facility] [place] [address] Care Team Providers Care Assistant Curator Name Role Phone Hollie Stallings [facility] Primary Care Provider [phone] [phone] Encounter Details Date Type Department Care Team (Late st Contact Info) Description 05/22/2020 [employer] Message Enc [facility] [address] [place] [phone] Hollie Stallings [facility] [address] [place] [phone] RE: Question Social History Tobacco Use Types [...] Progress Notes * Patricia Manriquez LPN - 05/23/2020 9:29 AM CDT Message sent via [employer]. * LEXI Vaca - 05/23/2020 7:51 AM CDT OV to discuss. * Patricia Manriquez LPN - 05/23/2020 6:58 AM CDT Forward to Hollie ELLIOTT-C to advise. documented in this encounter Plan of Treatment Not on file documented as of this encounter Visit Diagnoses Not on filedocumented in this encounter Care Teams Assistant Curator Relationship Specialty Start Date End Date Hollie Stallings FNP [address] [place] [address] [place] [address] PCP - General Nurse Practitioner Family 02/02/19 documented as of this encounter
--- OUTSIDE RECORDS SUMMARY | 2025-06-18 07:31 | XMS_ITS | Encounter Summary ---
Author Organization [facility] Address [facility] [place] [address] Care Team Providers Care Timber Killer Name Role Phone Hollie Stallings [facility] Primary Care Provider [phone] [phone] Encounter Details Date Type Department Care Team (Late st Contact Info) Description 05/06/2019 [employer] Message Enc [facility] [address] [place] [phone] Hollie Stallings [facility] [address] [place] [phone] Question Social History Tobacco Use Types Packs/Day Years Used Date Smoking Tobacco: Never Smokeless Tobacco: Never AUDIT-C Answer Date Recorded Frequency of Alcohol [...] on file documented as of this encounter Functional Status documented as of this encounter Progress Notes * Patricia Manriquez LPN - 05/08/2019 8:29 AM CDT Patient has appointment scheduled with Deyanira johnston. documented in this encounter Plan of Treatment Not on file documented as of this encounter Visit Diagnoses Not on filedocumented in this encounter Care Teams Timber Killer Relationship Specialty Start Date End Date Hollie Stallings FNP [address] [place] [address] [place] [address] PCP - General Nurse Practitioner Family 02/02/19 documented as of this encounter
--- OUTSIDE RECORDS SUMMARY | 2025-06-18 07:31 | XMS_ITS | Clinical Summary ---
Author Organization [facility] Address [address] [place] [address] Care Team Providers Care Specialist Field Engineer Name Role Phone Hollie Stallings [facility] Primary Care Provider [phone] Allergies Active Allergy Reactions Criticality Noted Date Comments Diclofenac Nausea and Vomiting 02/02/2024 Morphine Rash Low 05/08/2019 Medications docusate sodium 100 MG capsule Take 2 capsules (200 mg total) by mouth daily. Active cetirizine (ZYRTEC) 10 MG tablet Take by mouth daily. Active valACYclovir (VALTREX) 500 MG tabletIndication s:Genital herpes simplex, unspecified site Take 1 tablet (500 mg total) by mouth daily. 90 tablet 3 5 Active metFORMIN ER (GLUCOPHAGE-XR) 500 MG 24 hr tabletIndication s:PCOS (polycystic ovarian syndrome) take 4 tablets by mouth at bedtime 360 tablet 3 5 Active busPIRone (BUSPAR) 15 MG tabletIndication s:Generalized anxiety disorder Take 1 tablet (15 mg total) by mouth 3 (three) times daily. 270 tablet 3 5 Active levothyroxine (SYNTHROID) 75 MCG tabletIndication s:Hypothyroidism , unspecified type Take 1 tablet (75 mcg total) by mouth every morning. 90 tablet 3 5 Active Cholecalciferol (VITAMIN D3) 50 MCG (1999) CapIndications:A bnormal laboratory test Take 2,000 Int'l Units by mouth daily. 5 Active ferrous sulfate, 65 mg elemental, 325 (65 FE) MG tabletIndication s:Abnormal laboratory test Take 1 tablet (325 mg total) by mouth daily with breakfast. 5 Active sertraline (ZOLOFT) 100 MG tabletIndication s:Generalized anxiety disorder Take 1 tablet (100 mg total) by mouth daily. 90 tablet 5 Active sertraline (ZOLOFT) 50 MG tabletIndication s:Generalized anxiety disorder Take 1 tablet (50 mg total) by mouth daily. 90 tablet 3 5 06/11/20 25 Discontinu ed(Reorder ) Active Problems Problem Noted Date Diagnosed Date Generalized anxiety disorder 03/19/2022 Non-seasonal allergic rhinitis due to pollen 01/2020 Vitamin D deficiency 03/08/2018 Overview (02/03/2019): Date Onset: 03/08/2018 PCOS (polycystic ovarian syndrome) 04/05/2017 Overview (02/03/2019): Date Onset: 04/05/2017 Microscopic hematuria 12/04/2015 Overview (02/03/2019): Date Onset: 12/04/2015 Genital herpes 07/07/2013 Overview (02/03/2019): Date Onset: 07/07/2013 Class 2 severe obesity due t o excess calories with serious comorbidity and body mass index (BMI) of 38.0 to 38.9 in adult 07/07/2013 Overview (02/03/2019): Date Onset: 07/07/2013 Resolved Problems Problem Noted Date Diagnosed Date Resolved Date COVID-19 vaccination declined 03/19/2022 01/02/2023 Primary insomnia 02/24/2019 02/16/2025 Urethritis 12/04/2015 02/24/2019 Overview (02/03/2019): Date Onset: 12/04/2015 Depression 07/07/2013 02/24/2019 Overview (02/03/2019): Date Onset: 07/07/2013 Encounters Date Type Department Care Team Description 06/12/2025 Telephone [place] [address] [place] [address] Hollie Stallings FNP Orders (Lab orders) 06/09/2025 MyChart Message Enc [facility] [address] [place] [address] Hollie Stallings, BILL OF LADING CLERK Sertraline 04/30/2025 MyChart Message Enc [facility] [address] [place] [address] Hollie Stallings BILL OF LADING CLERK Lab work 04/05/2025 1:45 PM CDT Office Visit [facility] [address] [place] [address] [place] [phone] Lb Cruz, DO Other (Skin tag- left hip) 04/05/2025 Travel from Last 3 Months Immunizations Immunization Administration Dates Next Due Dtap (Generic) 10/29/2016, 5,04/09/1992,03/20/1991,1990,1990 Dtp 09/01/1995, 2,03/20/1991,01/26/1991,1989 Hepatitis B 10/07/2001,06/03/2001,04/29/2001 Hib (Generic) 01/02/1992,10/03/1991 Influenza Adult (Generic) 09/03/2022,09/03/2021, 09/07/2019,09/12/2018 MMR 09/01/1995,01/02/1992 MMR (Generic) 09/01/1992,01/02/1992 Opv 09/01/1995, 2,03/20/1991,01/26/1991,1989 Polio Opv (Generic) 09/01/1995 Tdap (Generic) 04/04/2024,09/04/2022 Family History Medical History Relation Comments Diabetes Father Diabetes Paternal Grandmother Mental Health Sister 1 Mental Health Sister 2 Relation Status Comments Daughter Alive Father Mother Paternal Grandmother Sister 1 Alive Sister 2 Alive Son Alive Social History Tobacco Use Types Packs/Day Years Used Date Smoking Tobacco: Never Smokeless Tobacco: Never Tobacco Cessation:Counseling Given: Not Answered Alcohol Use Standard Drinks/Week Comments No 0 (1 standard drink = 0.6 oz pur e alcohol) AUDIT-C Answer Date Recorded Frequency of Alcohol Consumption Never 05/08/2019 Average Number of Drinks Not on file 019 Frequency of Binge Drinking Not on file 04/29 PHQ-2 Answer Date Recorded Patient Health Questionnaire-2 Score 0 02/16/2025 Comments No Sex and Gender Information Value Date Recorded Sex Assigned at Female 02/16/2025 9:55 AM CDT Legal Sex Female 5:29 PM CDT Gender Identity Not on file Sexual Orientation Not on file 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 Not on file Not on file Last Filed Vital Signs Vital Sign Reading Time Taken Comments Blood Pressure 116/84 04/05/2025 1:37 PM CDT Pulse 75 04/05/2025 1:37 PM CDT Temperature 36.8 C (98.2 F) 02/16/2025 9:52 AM CDT Respiratory Rate 16 04/05/2025 1:37 PM CDT Oxygen Saturation 99% 04/05/2025 1:37 PM CDT Inhaled Oxygen Concentration - - Weight 100.4 kg (221 lb 6.4 oz) 04/05/2025 1:37 PM CDT Height 172.7 cm (5' 8) 04/05/2025 1:37 PM CDT Body Mass Index 33.66 04/05/2025 1:37 PM CDT Plan of Treatment Health Maintenance Due Date Last Done Comments Cervical Cancer Screening Pap Smear (Age 30 to 64) Every 3 Years 1990 HPV Vaccines (1 - 3-dose SCDM series) 2017 Cervical Cancer Screening Pap with HPV Testing (Age 30 to 64) Every 5 Years 2020 Cervical Cancer Screening with HPV 2020 COVID-19 Vaccine ( season) 2024 05/12/2022, 04/21/2022 Annual Physical 02/16/2026 02/16/2025 DTaP, Tdap and Td Vaccines (9 - Td or Tdap) 04/04/2034 04/04/2024, 09/04/2022, 10/29/2016, Additional history exists Hepatitis B Vaccines Completed 10/07/2001, 06/03/2001, 04/29/2001 Hepatitis C Completed 08/22/2020 PHQ-2 (Physician Marina) Completed 02/16/2025 Meningococcal B Vaccine Aged Out No l onger eligible based on patient's age to complete this topic Meningococcal Vaccine Aged Out No natasha viral eligible based on patient's age to complete this topic Pneumococcal Vaccine: Pediatrics (0 to 5 Years) and At-Risk Patients (6 to 49 Years) Aged Out No longer eligible based on patient's age to complete this topic RSV Immunizations Under 20 Months Aged Out No longer eligible based on patient's age to complete this topic Procedures Procedure Name Priority Date/Time Associated Diagnosis Comments HEPATITIS C RNA W/ REFLX GENOTYPE Routine 08/22/2020 10:40 AM CDT from Last 3 Months or Most Recently Relevant to Health Maintenance Results * HEPATITIS C RNA W/ REFLX GENOTYPE (08/22/2020 10:40 AM CDT) HEPATITIS C AB NON-REACTIVE NON-REACT CAIN [facility] SIGNAL TO CUTOFF 0.01 <1.00 [facility] Comment: HCV antibody was non-reactive. There is no laboratory evidence of HCV infection. In most cases, no further action is required. However, if recent HCV exposure is suspected, a test for HCV RNA (test code 77736) is suggested. For additional information please refer to http://education.dentaZOOM.zePASS/faq/XGJ67s0 (This link is being provided for informational/ educational purposes only.) ESTEBAN BROOKS DO,MPH THIS TEST WAS PERFORMED AT [employer] [id number] [place] [address] HEPATITIS C AB NO [facility] COMMENT Not required [facility] 08/22/2020 10:4 0 AM CDT 08/22/2020 11:33 AM CDT us Hollie Stallings BILL OF LADING CLERK LABORATORY Final Res ult [address] [address] from Last 3 Months or Most Recently Relevant to Health Maintenance Insurance [facility] Care Teams Specialist Field Engineer Relationship Specialty Start Date End Date Hollie Stallings FNP [address] [place] [address] [place] [address] PCP - General Nurse Practitioner Family 02/02/19
--- OUTSIDE RECORDS SUMMARY | 2025-06-18 07:31 | XMS_ITS | Encounter Summary ---
Author Organization [facility] Address [address] [place] [address] Care Team Providers Care Heel Layer Name Role Phone Hollie Stallings Primary Care Provider [phone] [phone] Encounter Details Date Type Department Care Team (Late st Contact Info) Description 05/11/2019 [employer] Message Enc [facility] [address] [place] [phone] [facility] [address] [place] [phone] Question Social History Tobacco Use Types Packs/Day [...] on filedocumented in this encounter Care Teams Heel Layer Relationship Specialty Start Date End Date Hollie Stallings FNP [address] [place] [address] PCP - General Nurse Practitioner Family 02/02/19 documented as of this encounter
--- OUTSIDE RECORDS SUMMARY | 2025-06-18 07:31 | XMS_ITS | Encounter Summary ---
Author Organization [facility] Address [facility] [place] [address] Care Team Providers Care Firer Electric Locomotive Name Role Phone Hollie Stallings [facility] Primary Care Provider [phone] Encounter Details Date Type Department Care Team (Late st Contact Info) Description 10/10/2020 [employer] Message Enc [facility] [address] [place] [phone] Hollie Stallings [facility] [address] [place] [phone] RE: Follow Up/Update Social History Tobacco Use [...] as of this encounter Progress Notes * Taina Roman LPN - 10/10/2020 10:04 AM CST Please review/advise. S FINANCIAL ANALYST documented in this encounter Plan of Treatment Not on file documented as of this encounter Visit Diagnoses Not on filedocumented in this encounter Care Teams Firer Electric Locomotive Relationship Specialty Start Date End Date Hollie Stallings FNP [address] [place] [address] [place] [address] PCP - General Nurse Practitioner Family 02/02/19 documented as of this encounter
[2025-06-18 08:50] LABS: Thyroid Stimulating Hormone Reflex 3.550 uIU/mL (0.465-4.68)
[2025-06-19 11:08] LABS: FSH 1.0 mIU/mL (.)
[2025-06-23 16:08] LABS: Estradiol, Sensitive 477.7 pg/mL (.)
[2025-06-25 15:09] LABS: Testosterone, Total, LC/MS 37 ng/dL (.)
== END 2025-06-18 07:28 | disposition home or self-care (01) ==
LOC: CHSLAB 07:29
PROVIDERS: PCP Registered Nurse; Visit Provider Registered Nurse
DX: R45.86 Emotional lability (principal); E03.9 Hypothyroidism, unspecified; E55.9 Vitamin D deficiency, unspecified
CPT/HCPCS: 36415; 82306; 82670; 83001; 84144; 84403; 84443

== ENCOUNTER 2025-07-24 08:20 | Outpatient (CLI) | payer OTHER, SELFPAY ==
--- OUTSIDE RECORDS SUMMARY | 2025-07-24 08:25 | XMS_ITS | Clinical Summary ---
Author Organization [facility] Address [address] [facility] [place] [address] Care Team Providers Care Space Operations Officer Name Role Phone Hollie Stallings SLD EDUCATIONAL AIDE-AUTOMOBILE RENTAL AGENT Primary Care Provid er Source Comments [facility],non-owned Affiliates and Associated Physician Practices is amultiple site organization consisting of ambulatory clinics and hospital sitesin [place], [place], [place] and [place]. This disclosure is being madepursuant to the Care Everywhere program and may not contain all information available regarding this patient. Last updated 18.[facility] Allergies Active Allergy Reactions Criticality Noted Date Comments Diclofenac Epolamine Nausea and/or Vomiting 04/2024 Morphine Unknown 09/02/2022 agitation Medications * Be aware that medications may not be up to date on this document. Alwaysverify current medications with the patient. Glucagon (Baqsimi One Pack) 3 MG/DOSE POWD [place] 3 mg into the nose as needed [...] on file Legal Sex Female 5:25 AM GELATIN DYNAMITE PACKING OPERATOR Gender Identity Not on file Sexual Orientation [...] patient's age to complete this topic Insurance [facility] Care Teams Space Operations Officer Relationship Specialty Start Date End Date Hollie Stallings APRN-ALISIA [address] [place] [address] [place] [address] PCP - General 09/25/22
--- OUTSIDE RECORDS SUMMARY | 2025-07-24 08:25 | XMS_ITS | Clinical Summary ---
Author Organization [facility] Address [address] [place] [address] Phone Care Team Providers Care Taxation Agent Name Role Phone Unavailable Primary Care Provider [...] B VACCINES Completed 10/07/2001, 06/03/2001, 04/29/2001 Insurance [employer] [id number] [facility] Address: [facility] [id number] [place] [id number]
--- OUTSIDE RECORDS SUMMARY | 2025-07-24 08:25 | XMS_ITS | Encounter Summary ---
Author Organization [facility] Address [address] [facility] [place] [address] Care Team Providers Care Biofuels Production Technician Name Role Phone Hollie Stallings PREVENTIVE MAINTENANCE COORDINATOR-COMMERCIAL PROPERTY ADMINISTRATOR Primary Care Provid er Encounter Details Date Type Department Care Team (Late st Contact Info) Description 10/27/2021 Lab Requisition [facility] [address] [place] [address] Mari Chang MD Social History Tobacco Use Types Packs/Day Years Used Date Smoking Tobacco: Never Assessed Comments Unknown Sex and Gender Information Value Date Recorded Sex Assigned at Not on file Legal Sex Female 5:25 AM OCCUPATIONAL MEDICINE PHYSICIAN Gender Identity Not on file Sexual Orientation Not on file documented as of this encounter Plan of Treatment Not on file documented as of this encounter Procedures Procedure Name Priority Date/Time Associated Diagnosis Comments HCG BETA BLOOD QUANTITATIVE Routine 10/27/2021 5:17 PM OCCUPATIONAL MEDICINE PHYSICIAN documented in this encounter Results * HCG BETA BLOOD QUANTITATIVE (10/27/2021 5:17 PM OCCUPATIONAL MEDICINE PHYSICIAN) hCG Quantitative <1.20 mIU/mL 10/27/20 6:21 PM OCCUPATIONAL MEDICINE PHYSICIAN [facility] Blood BLOOD SPECIMEN / Unknown Venipuncture / Unknown 10/27/2021 5:17 PM OCCUPATIONAL MEDICINE PHYSICIAN 10/27/2021 6:02 PM OCCUPATIONAL MEDICINE PHYSICIAN Narrative [facility] - 10/27/2021 6:21 PM OCCUPATIONAL MEDICINE PHYSICIAN hCG Reference Range, mIU/mL: Males 0-2.0 Non [...] MD LAB - CHEMISTRY ORDERABLES Final Result [facility] [address] [place], [place] [id number] documented in this encounter Visit Diagnoses Not on filedocumented in this encounter Care Teams Biofuels Production Technician Relationship Specialty Start Date End Date Hollie Stallings, DIDI-COMMERCIAL PROPERTY ADMINISTRATOR [address] [place] [address] [place] [address] PCP - General 09/25/22 documented as of this encounter
[2025-07-24 09:04] LABS: Iron 70 ug/dL (37-170)
[2025-07-24 09:11] LABS: Percent Iron Saturation 23 % (20-50)
== END 2025-07-24 08:21 | disposition home or self-care (01) ==
LOC: CHSLAB 08:21
PROVIDERS: PCP Registered Nurse; Visit Provider Registered Nurse
DX: R89.9 Unspecified abnormal finding in specimens from other organs, systems and tissues (principal)
CPT/HCPCS: 36415; 83540; 83550; 84146